=== PATIENT | male | born 1965 | race Caucasian/White ===

== ENCOUNTER 2017-05-19 17:16 | Emergency (ER) | payer SELFPAY ==
[2017-05-19 18:03] LABS: Hematocrit 43.8 % (42.0-52.0); Hemoglobin 14.7 gm/dL (13.5-18.0); Mean Cell Volume 81.3 fl (78-100); Mean Corpuscular Hemoglobin 27.3 pg (27-31); Mean Corpuscular Hgb Conc 33.6 g/dl (32-36); Mean Platelet Volume 10.5 fl (6.0-9.5); Neutrophil # 4.8 K/mm3 (1.3-6.0); Neutrophil % 66.1 % (42-75.0); Platelet Count 206 K/mm3 (150-450); Red Blood Count 5.39 M/mm3 (4.7-6.0); Red Cell Distribution Width 13.2 % (11.5-14.0); White Blood Count 7.3 K/mm3 (4.0-10.5)
--- NOTE | 2017-05-19 18:13 | ERNOTE ---
<Fernando Mayer - Last Filed: 05/19/17 18:30> Psychological HPI - Date Date of Service: 05/19/17 - General Chief Complaint: Psychiatric Problem Source: Reports: patient Exam Limitations: Reports: no limitations - Immun/Allergies/Home Medications Allergies/Adverse Reactions: Allergies naproxen Adverse Reaction (Severe, Verified 04/26/16 16:18) Difficulty breathing topiramate [From Topamax] Adverse Reaction (Severe, Verified 04/26/16 16:18) Tachycardia acetaminophen [From Tylenol] Adverse Reaction (Verified 04/26/16 16:18) d/t cirrosis Home Medications: HOME MEDICATIONS ALPRAZolam [Xanax] 1 mg PO QID #16 tablet 04/27/16 [Last Taken Unknown] Atenolol [Tenormin] 100 mg PO DAILY #30 tab 04/27/16 [Last Taken Unknown] Ibuprofen [Motrin] 800 mg PO TID PRN #60 tab 04/27/16 [Last Taken Unknown] Insulin Glargine,Hum.rec.anlog [Lantus] 30 units SC HS #1 vial 04/27/16 [Last Taken Unknown] Insulin Regular, Human [Humulin R] 10 units SC TIDWM #1 vial 04/27/16 [Last Taken Unknown] Lisinopril [Prinivil] 20 mg PO DAILY #30 tablet 04/27/16 [Last Taken Unknown] - History of Present Illness Narrative: Patient presents to the ED for feeling suicidal. He relates he is homeless and has no support and he is tired of dealing with this. He relates that [place] shoot himself [place] He states chronic low back pain without acute injury. He denies any now injury, just chronic pain. No CP or SOB. Has not tried to OD. Gets occasional abdominal cramps, non at this time. No fever. Uses amphetamines and THC. Time Seen by Provider: 05/19/17 17:40 Arrived by: Denies: police Onset/duration: Reports: gradual onset Intent: Reports: suicide Associated Symptoms: Reports: frustrated, suicidal thoughts. Denies: confused, hallucinating Prior Treament: Denies: recently seen Review of Systems - Review of Systems Constitutional: Absent: fever ENT: Present: no symptoms reported Respiratory: Absent: shortness of breath Cardiology: Absent: chest pain Gastrointestinal/Abdominal: Present: See HPI Genitourinary: Absent: dysuria Musculoskeletal: Present: back pain Neurological: Absent: weakness Psych: Present: depressed All Other Systems: All systems neg except as marked - Patient's Past Medical History Patient History - Medical: Anxiety, Arthritis, Chronic Pain, Diabetes Type 2 Insulin Dependent, Depression, GERD, Liver Disease, Osteoarthritis Patient History - Cardiac/Respiratory: Hypertension, Myocardial Infarction, Pericarditis Patient History - Cancer: No Hx of Cancer Patient History - Surgical Procedures: Cardiac stent Patient History - Other: None - Family History Father Family History - Medical: Family History - Cardiac/Respiratory: CHF Mother Family History - Medical: - Social History Living Situations: alone Abuse History: Hx of Substance Use Psych History: Hx of Anxiety, Hx of Depression, Hx of Suicide Attempt Smoking Status: Current every day smoker Have you smoked in the past 12 months: Yes Do you dip or chew tobacco: No Alcohol Use: none Drug Use: marijuana, meth, other - Immunizations Immunizations Up to Date: No Hx Pneumococcal Vaccination: No History of Influenza Vaccine: No Physical Exam - Physical Exam General Appearance: Present: alert, no apparent distress Head Exam: Present: normal inspection, no evidence of injury Eye Exam: Normal inspection: bilateral, PERRL: bilateral Ears, Nose, Throat: Present: normal ENT inspection Neck: Present: normal inspection Respiratory: Present: no respiratory distress, normal breath sounds, no accessory muscle use, lungs clear Cardiovascular/Chest: Present: regular rate, rhythm Gastrointestinal/Abdominal: Present: normal bowel sounds, nontender, soft. Absent: tenderness Back Exam: Present: other - muscular tenderness. 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 Skin Exam: Present: normal color, warm/dry ED Progress - Results and Orders Patient's Lab Results:: I have reviewed the patient's lab results. - Vital Signs Patient's Vital Signs:: I have reviewed the patient's vital signs. Vital Signs: Vital Signs 05/19/17 05/19/17 17:32 17:38 Temperature 37.1 C 37.1 C Pulse Rate 80 80 Respiratory 18 18 Rate Blood Pressure 162/99 162/99 O2 Sat by Pulse 94 94 Oximetry - Progress/Reassessment Chief Complaint: Psychiatric Problem - Transfer of Care Physician Sign Out: Fernando Mayer Receiving Physician: Yovany Mitchell Pending Results: Labs, Physician/consult arrival Departure Clinical Impression: Suicidal thoughts - Departure Disposition: Other health care facility Condition: Stable <Yovany Mitchell - Last Filed: 05/20/17 08:03> ED Progress - Results and Orders Results and Orders: Laboratory Tests 05/19/17 05/19/17 05/19/17 18:02 18:02 19:05 WBC 7.3 Hgb 14.7 Hct 43.8 Plt Count 206 Sodium 136 Potassium 3.7 Chloride 101 Carbon Dioxide 27.7 BUN 15 Creatinine 0.92 Random Glucose 465 H Calcium 8.7 Calcium Adj for Albumin 9.0 Total Bilirubin 0.4 AST 15 ALT 39 Alkaline Phosphatase 130 Total Protein 6.8 Albumin 3.2 L Lipase 128 Urine Color Yellow Urine Appearance Slightly cloudy Urine pH 6.0 Ur Specific [place] 1.010 Urine Protein Negative Urine Glucose (UA) >=1000 H Urine Ketones Negative Urine Blood 5 H Urine Nitrate Negative Urine Bilirubin Negative Urine Urobilinogen Normal Ur Leukocyte Esterase Negative Urine RBC Trace Urine WBC None seen Ur Epithelial Cells Trace Urine Bacteria None seen Urine Culture Comments No culture indicated Salicylates 3.5 Urine Opiates Screen Acetaminophen Less than 0.2 L Barbiturate Screen Ur Phencyclidine Scrn Urine Amphetamine U Benzodiazepines Scrn Urine Cocaine Screen Urine Marijuana (THC) Ethyl Alcohol Less than 3.0 05/19/17 19:05 WBC Hgb Hct Plt Count Sodium Potassium Chloride Carbon Dioxide BUN Creatinine Random Glucose Calcium Calcium Adj for Albumin Total Bilirubin AST ALT Alkaline Phosphatase Total Protein Albumin Lipase Urine Color Urine Appearance Urine pH Ur Specific [place] Urine Protein Urine Glucose (UA) Urine Ketones Urine Blood Urine Nitrate Urine Bilirubin Urine Urobilinogen Ur Leukocyte Esterase Urine RBC Urine WBC Ur Epithelial Cells Urine Bacteria Urine Culture Comments Salicylates Urine Opiates Screen Negative Acetaminophen Barbiturate Screen Negative Ur Phencyclidine Scrn Negative Urine Amphetamine Negative U Benzodiazepines Scrn Negative Urine Cocaine Screen Negative Urine Marijuana (THC) Positive H Ethyl Alcohol - Vital Signs Vital Signs: Vital Signs 05/19/17 05/19/17 17:32 17:38 Temperature 37.1 C 37.1 C Pulse Rate 80 80 Respiratory 18 18 Rate Blood Pressure 162/99 162/99 O2 Sat by Pulse 94 94 Oximetry - Progress/Reassessment Progress Note-Subjective: 05/19/17 20:[address] Mayer, spoke with the patient he is alert and oriented, somewhat flat affect. He is awaiting [facility] social sciences lecturer to assess him. 05/19/17 22:55 Crisis center in [place] believes that the behavioral health assessment done by the [facility] social sciences lecturer was not complete. We contacted the [facility] social sciences lecturer and she will come back and find other placement 05/20/17 01:39 Crisis house from [place] believes they could take him but need to wait for second approval in the morning. They would also not have transportation until morning. 05/20/17 07:37 Crisis house in [place] may accept the patient this morning.
[2017-05-19 18:16] LABS: ALT 39 U/L (19-67); AST 15 U/L (0-48); Albumin * 3.2 gm/dl (3.4-5.0); Alkaline Phosphatase * 130 U/L (50-170); BUN/Creatinine Ratio 16.3 (9.0-21.6); Bilirubin, Total 0.4 mg/dL (0.0-1.1); Blood Urea Nitrogen 15 mg/dL (6-23); Calcium * 8.7 mg/dL (7.9-10.9); Carbon Dioxide 27.7 mmol/L (24-32.6); Chloride 101 mmol/L (97-106); Glucose * 465 mg/dL (70-110); Lipase 128 U/L (73-393); Potassium 3.7 mmol/L (3.4-4.6); Salicylate 3.5 mg/dL (2.8-20.0); Sodium 136 mmol/L (132-142); Total Protein 6.8 gm/dL (6.2-8.2)
[2017-05-19 19:11] LABS: Urine Bilirubin Negative (NEGATIVE); Urine Ketone Negative (NEGATIVE); Urine Nitrite Negative (NEGATIVE); Urine Protein Negative (NEGATIVE); Urine Urobilinogen Normal (NORMAL)
[2017-05-19] MEDS ORDERED: CYCLOBENZAPRINE HCL 10 MG TABLET PO ONE (19:15)
[2017-05-19] MEDS ORDERED: CYCLOBENZAPRINE HCL 10 MG TABLET ONE (19:15)
[2017-05-19 19:22] LABS: Cocaine Ur Negative (NEGATIVE); Urine Appearance Slightly Cloudy; Urine Barbiturate Negative (NEGATIVE); Urine Benzodiazepines Negative (NEGATIVE); Urine Blood 5 /ul (NEGATIVE); Urine Color Yellow; Urine PCP Negative (NEGATIVE)
[2017-05-19 19:23] LABS: Urine Bacteria None Seen; Urine RBC TRACE /hpf (0-5); Urine WBC None Seen /hpf (0-5)
[2017-05-19 19:30] LABS: Urine Opiates Negative (NEGATIVE)
[2017-05-19 19:31] LABS: Urine THC Positive (NEGATIVE)
[2017-05-19] MEDS ORDERED: IBUPROFEN 400 MG TABLET ONE (19:51)
[2017-05-19] MEDS ORDERED: IBUPROFEN 400 MG TABLET PO ONE (19:52)
[2017-05-20] MEDS ORDERED: IBUPROFEN 400 MG TABLET PO ONE (04:26)
[2017-05-20] MEDS ORDERED: INSULIN REGULAR, HUMAN 100 UNITS/ML VIAL SC ONE (04:26)
[2017-05-20] MEDS ORDERED: IBUPROFEN 400 MG TABLET ONE (04:28)
--- NOTE | 2017-05-20 08:51 | ERNOTE ---
Psychological HPI - Date Date of Service: 05/20/17 - General Chief Complaint: Psychiatric Problem Source: Reports: patient - Immun/Allergies/Home Medications Allergies/Adverse Reactions: Allergies naproxen Adverse Reaction (Severe, Verified 04/26/16 16:18) Difficulty breathing topiramate [From Topamax] Adverse Reaction (Severe, Verified 04/26/16 16:18) Tachycardia acetaminophen [From Tylenol] Adverse Reaction (Verified 04/26/16 16:18) d/t cirrosis Home Medications: HOME MEDICATIONS ALPRAZolam [Xanax] 1 mg PO QID #16 tablet 04/27/16 [Last Taken Unknown] Atenolol [Tenormin] 100 mg PO DAILY #30 tab 04/27/16 [Last Taken Unknown] Ibuprofen [Motrin] 800 mg PO TID PRN #60 tab 04/27/16 [Last Taken Unknown] Insulin Glargine,Hum.rec.anlog [Lantus] 30 units SC HS #1 vial 04/27/16 [Last Taken Unknown] Insulin Regular, Human [Humulin R] 10 units SC TIDWM #1 vial 04/27/16 [Last Taken Unknown] Lisinopril [Prinivil] 20 mg PO DAILY #30 tablet 04/27/16 [Last Taken Unknown] - History of Present Illness Time Seen by Provider: 05/19/17 17:40 - Patient's Past Medical History Patient History - Medical: Anxiety, Arthritis, Chronic Pain, Diabetes Type 2 Insulin Dependent, Depression, GERD, Liver Disease, Osteoarthritis Patient History - Cardiac/Respiratory: Hypertension, Myocardial Infarction, Pericarditis Patient History - Cancer: No Hx of Cancer Patient History - Surgical Procedures: Cardiac stent Patient History - Other: None - Family History Father Family History - Medical: Family History - Cardiac/Respiratory: CHF Mother Family History - Medical: - Social History Living Situations: alone Abuse History: Hx of Substance Use Psych History: Hx of Anxiety, Hx of Depression, Hx of Suicide Attempt Smoking Status: Current every day smoker Have you smoked in the past 12 months: Yes Do you dip or chew tobacco: No Alcohol Use: none Drug Use: marijuana, meth, other - Immunizations Immunizations Up to Date: No Hx Pneumococcal Vaccination: No History of Influenza Vaccine: No ED Progress - Results and Orders Patient's Lab Results:: I have reviewed the patient's lab results. - Vital Signs Patient's Vital Signs:: I have reviewed the patient's vital signs. Vital Signs: Vital Signs 05/20/17 04:25 Temperature 36.0 C L Pulse Rate 68 Respiratory 18 Rate Blood Pressure 163/78 O2 Sat by Pulse 95 Oximetry - Progress/Reassessment Chief Complaint: Psychiatric Problem Progress Note-Subjective: 05/20/17 08:48 Patient was checked out to me again at am shift change May [address] Mitchell. Patient is lying in bed, alert. His only c/o at this time is of his chronic back pain. No new complaints. Sandra has seen the patient O/N and he is set to go to [place]. He is agreeable to this. Please see my prior note and Dr Mitchell's. He is medically stable for d/c and transfer. No acute life threats otherwise noted. Departure Clinical Impression: Suicidal thoughts, Non compliance w medication regimen - Departure Disposition: Other health care facility Condition: Stable
[2017-05-20 10:06] VITALS: BP 160/76
== END 2017-05-20 09:46 | disposition short-term general hospital (02) ==
LOC: ER 17:16
DX: R45.851 Suicidal ideations (principal); F17.200 Nicotine dependence, unspecified, uncomplicated
CPT/HCPCS: 36415; 80053; 80307; 81001; 83690; 85025; 96372; 99285; G0480; G0481

== ENCOUNTER 2018-02-11 17:16 | Observation (INO) ==
[2018-02-11 18:02] LABS: Hematocrit 41.6 % (42.0-52.0); Hemoglobin 13.8 gm/dL (13.5-18.0); Mean Cell Volume 79.4 fl (78-100); Mean Corpuscular Hemoglobin 26.3 pg (27-31); Mean Corpuscular Hgb Conc 33.2 g/dl (32-36); Mean Platelet Volume 9.9 fl (6.0-9.5); Neutrophil # 7.6 K/mm3 (1.3-6.0); Neutrophil % 72.3 % (42-75.0); Platelet Count 271 K/mm3 (150-450); Red Blood Count 5.24 M/mm3 (4.7-6.0); Red Cell Distribution Width 13.2 % (11.5-14.0); White Blood Count 10.5 K/mm3 (4.0-10.5)
[2018-02-11 18:15] LABS: Albumin * 2.9 gm/dl (3.4-5.0); Anion Gap 12.5 mmol/L (6.8-13.8); BUN/Creatinine Ratio 20.9 (9.0-21.6); Bilirubin, Total 0.4 mg/dL (0.0-1.1); Ca. Corrected For Albumin 9.5 mg/dL (8.4-10.2); Calcium * 8.9 mg/dL (7.9-10.9); Carbon Dioxide 26.5 mmol/L (24-32.6); Magnesium 2.1 mg/dL (1.2-2.8); Total Protein 7.4 gm/dL (6.2-8.2)
--- NOTE | 2018-02-11 19:12 | ERNOTE ---
Lower Extremity HPI - Narrative Date of Service: 02/11/18 - General Lower Extremities Pain: foot: left Time Seen by Provider: 02/11/18 17:30 Source: patient Exam Limitations: no limitations - Immun/Allergies/Home Medications Immunizations: IMMUNIZATION HX Immunizations Up to Date Yes History of Influenza Vaccine No Hx Pneumococcal Vaccination No Allergies/Adverse Reactions: Allergies Allergy/AdvReac Type Severity Reaction Status Date / Time naproxen AdvReac Severe Verified 02/11/18 17:34 topiramate [From Topamax] AdvReac Severe Verified 02/11/18 17:34 acetaminophen [From Tylenol] AdvReac Verified 02/11/18 17:34 Home Medications: HOME MEDICATIONS Atenolol [Tenormin] 100 mg PO DAILY #30 tab 04/27/16 [Last Taken Unknown] Ibuprofen [Motrin] 800 mg PO TID PRN #60 tab 04/27/16 [Last Taken Unknown] Insulin Regular, Human [Humulin R] 10 units SC TIDWM #1 vial 04/27/16 [Last Taken Unknown] Lisinopril [Prinivil] 20 mg PO DAILY #30 tablet 04/27/16 [Last Taken Unknown] Clindamycin HCl [Cleocin HCl] 300 mg PO Q6H #40 capsule 12/17/17 [Last Taken Unknown] Insulin Glargine,Hum.rec.anlog [Lantus] 30 units SC BID 12/17/17 [Last Taken Unknown] Meloxicam [Mobic] 7.5 mg PO DAILY #30 tab 12/17/17 [Last Taken Unknown] - History of Present Illness Narrative: 52-year-old male presents to the emergency room for a left foot ulcer he states he's had for a while. Patient states that when he starts to notice again he cut it off with a razor. Patient states with the last few days he has had increased redness increased pain and a lot of drainage noted from the ulcer. Patient states that he can see the bone at the bottom of his foot. 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 Date (Duration): 02/11/18 Occurred: yesterday Location of Incident: home Associated Symptoms: Reports: unable to bear weight Subsequent Symptoms: Reports: sensory loss, numbness - foot Review of Systems - Review of Systems Constitutional: Present: no symptoms reported EYE: Present: no symptoms reported ENT: Present: no symptoms reported Respiratory: Present: no symptoms reported Cardiology: Present: no symptoms reported Gastrointestinal/Abdominal: Present: no symptoms reported Genitourinary: Present: no symptoms reported Musculoskeletal: Present: See HPI, joint pain Skin: Present: See HPI, lesions, change in color Neurological: Present: no symptoms reported Endocrine: Present: no symptoms reported Hematologic/Lymphatic: Present: no symptoms reported Psych: Present: no symptoms reported All Other Systems: All systems neg except as marked - Patient's Past Medical History Patient History - Medical: Anxiety, Arthritis, Chronic Pain, Diabetes Type 2 Insulin Dependent, Depression, GERD, Liver Disease, Osteoarthritis Patient History - Cardiac/Respiratory: Hypertension, Myocardial Infarction, Pericarditis Patient History - Cancer: Lymphoma Patient History - Surgical Procedures: Cardiac stent, Other Patient History - Other: None - Family History Father Family History - Medical: Family History - Cardiac/Respiratory: CHF Mother Family History - Medical: - Social History Abuse History: Hx of Substance Use Psych History: Hx of Anxiety, Hx of Depression, Hx of Suicide Attempt Smoking Status: Current every day smoker Have you smoked in the past 12 months: Yes Alcohol Use: none Drug Use: marijuana, meth - Immunizations Immunizations Up to Date: Yes Hx Pneumococcal Vaccination: No History of Influenza Vaccine: No Physical Exam - Physical Exam Narrative: 2 cm open wound to the base of the left foot below pinkie and fourth toe. Small amount of bone exposed. Very foul smell. Wound bed and does not appear to be healing dark tissue present soft present drainage present and soft. General Appearance: Present: wd/wn, alert, no apparent distress Head Exam: Present: normal inspection, no evidence of injury Ears, Nose, Throat: Present: normal ENT inspection, normal pharynx Neck: Present: normal inspection, nontender Respiratory: Present: no respiratory distress, normal breath sounds, no accessory muscle use, lungs clear Cardiovascular/Chest: Present: regular rate, rhythm, no murmur, normal peripheral pulses Peripheral Pulses: N=norm/S=strong/W=weak/B=bound/A=absent: Dorsalis-pedis (R): Normal, Dorsalis-pedis (L): Normal Gastrointestinal/Abdominal: Present: normal bowel sounds, no organomegaly Back Exam: Present: normal inspection, no vertebral tenderness Extremity Exam: Present: other Neurological Exam: Present: alert, oriented, normal mood/affect Lymphatic Exam: Present: no adenopathy ED Progress - Results and Orders Patient's Lab Results:: I have reviewed the patient's lab results. - Vital Signs Patient's Vital Signs:: I have reviewed the patient's vital signs. Vital Signs: Vital Signs 02/11/18 17:30 Temperature 37.5 C Pulse Rate 88 Respiratory 14 Rate Blood Pressure 175/78 O2 Sat by Pulse 99 Oximetry - X-Ray X-Ray #1 X-Ray: foot Interpretation: Reviewed by me X-ray Comments: TECHNIQUE: 3 views of the left foot. COMPARISONS: 02/26/2016 Foot 3 Views LT * No definable fracture lucency or cortical discontinuity. No definite signs of periostitis. Incidental note of what appears to be an exostosis at the distal tibia, most likely an incidental osteochondroma or ossification related to prior injury. This is stable. Joint spaces are in gross normal alignment without subluxation or dislocation. Lisfranc joint grossly intact. Lateral view best demonstrates a focal plantar ulcer at the bottom of the foot centered at the level of the fourth MTP joint. Measures approximately 2 cm in length , and 6 mm in depth. There is no definite signs of radiopaque foreign body. IMPRESSION: 1. Soft tissue ulcer at the plantar aspect of the foot as above. 2. No definite signs of osteomyelitis. If there is a persistent clinical concern, consider follow- up by nonemergent MRI, without and with contrast. If MRI examination is contraindicated, consider 3 phase nuclear medicine bone scan. 3. Additional comments are as above. Electronically signed by Magdi Polanco M.D.. Magdi Polanco MD Dict: 02/11/181836 Typed: 02/11/181836/ - Progress/Reassessment Chief Complaint: Foot Injury/Pain Departure Clinical Impression: Diabetic foot ulcer Qualifiers: Diabetic foot ulcer location: midfoot Diabetes mellitus type: type 2 Laterality : left Non-pressure ulcer stage: with necrosis of muscle Qualified Code(s): E11.621 - Type 2 diabetes mellitus with foot ulcer - Departure Disposition: Still a patient Condition: Stable
[2018-02-11] MEDS ORDERED: VANCOMYCIN HCL 1 GM in DEXTROSE 5 % IN WATER 250 ML IV ONE ×2 (19:27)
[2018-02-11 19:53] LABS: Hemoglobin A1C 10.9 % (4.00-6.0)
[2018-02-11] MEDS ORDERED: HYDROmorphone HCL 1 MG/ML DISP.SYRIN IV PRN (21:26)
[2018-02-11] MEDS ORDERED: KETOROLAC TROMETHAMINE 15 MG/ML VIAL IV PRN (21:27)
--- NOTE | 2018-02-11 21:31 | HP ---
Chief Complaint - Chief Complaint Date of Service: 02/11/18 - n Time of Service: 21:31 Chief Complaint: " Pain on LT foot, chills". Source of HPI- Pt; reliable, ERP report. History of Present Illness: Mr. Ordaz is a 50 yr old WM with a PMH of: Anxiety, Arthritis, Aortic Stenosis (severe), CAD s/p CHRISTY x 3 ( 07/14), COPD, Cirrhosis of Liver, Chronic Pain (with opioid dependence), Diabetes Type 2 Insulin Dependent, Depression, Diabetic Neuropathy, Hep C, Osteoarthritis & Polysubtance abuse (beg at age 14) . He has no PCP around the community and states that even if he did, he has no means to get to the doctor's office. His friend paid cab service for him to be brought to the [facility] ER. He currently lives with his niece in a house without heat and running water, and they are about to be evicted again by the landlord. He has had no permanent dwelling for the last 2 yrs and has struggled with medication & diabetes compliance. He states that for the last 3 days, he has been unable to walk on his LT foot due to severe pain and increased swelling. He says that the pain feels like someone is 'hitting his foot with a hammer' and the wound site feels like 'it's being probed with a sharp object.' He has had this non-healing wound on the plantar of his foot for several months and has not followed up with any doctor. He was seen at [facility] ER on 10/16/17 for pain on the wound and was started on Doxycycline and referred to follow-up with [facility]. He admits he did not follow through with the visit. At the ED tonight, the wound appeared necrotic with Eschar tissue, was foul with moderate purulent drainage but no surrounding erythema. Notable abnormal labs were ESR--> 48 & CRP of 5.5. Empiric antibiotics with Vancomycin initiated at the ED. The foot X-ray did not show any definite signs of Osteomyelitis, however , this imaging has low sensitivity in early course and he will need an MRI. Podiatry will be consulted in am as he may need surgical approach due to the necrotic tissue on wound. - Patient's Past Medical History Patient History - Medical: Anxiety, Arthritis, Chronic Pain, Diabetes Type 2 Insulin Dependent, Depression, GERD, Liver Disease, Osteoarthritis Patient History - Cardiac/Respiratory: Hypertension, Myocardial Infarction, Pericarditis Patient History - Cancer: Lymphoma Patient History - Surgical Procedures: Cardiac stent, Other Patient History - Other: None - Family History Father Family History - Medical: , Depression Family History - Cardiac/Respiratory: CHF, Hypertension Mother Family History - Medical: Family History - Cardiac/Respiratory: Hypertension - Social History Living Situations: home Abuse History: Hx of Substance Use Psych History: Hx of Anxiety, Hx of Depression, Hx of Suicide Attempt Smoking Status: Current every day smoker Have you smoked in the past 12 months: Yes Do you dip or chew tobacco: No Smoking Start Date: 01/27/88 Patient requests Smoking Cessation Consult: No Initiate information on Smoking Cessation: No Alcohol Use: none Drug Use: marijuana, meth - Immunizations Immunizations Up to Date: Yes Hx Pneumococcal Vaccination: No History of Influenza Vaccine: No Review Of Systems (GEN) - Review of Systems Generalized/Overall Review: Present: Fever, Malaise. Absent: Weakness, Chills EENTM: Absent: Eye Pain, Blurred Vision, Tearing, Double Vision Respiratory: Absent: Cough, Shortness of Breath, Orthopnea Cardiac: Absent: Chest Pain, Edema, Palpitations, Syncope Abdominal: Present: Diarrhea. Absent: Nausea, Vomiting, Hematemesis, Abdominal Pain Genitourinary: Absent: Burning, Itching, Urgency, Frequency, Incontinent Musculoskeletal: Absent: Joint Pain, Back Pain, Joint Swelling Neurological: Present: Anxiety, Depressed, Emotional Problems. Absent: Headache , Numbness, Parasthesia Skin: Present: Other - Wound on RT foot.. Absent: Dryness, Lesions, Lumps, Bruising Endocrine: Present: Intolerance to Cold Misc: All systems neg except as marked Immunizations: IMMUNIZATION HX Immunizations Up to Date Yes History of Influenza Vaccine No Hx Pneumococcal Vaccination No Allergies/Adverse Reactions: Allergies Allergy/AdvReac Type Severity Reaction Status Date / Time naproxen AdvReac Severe Verified 02/11/18 17:34 topiramate [From Topamax] AdvReac Severe Verified 02/11/18 17:34 acetaminophen [From Tylenol] AdvReac Verified 02/11/18 17:34 Home Medications: HOME MEDICATIONS Atenolol [Tenormin] 100 mg PO DAILY #30 tab 04/27/16 [Last Taken Unknown] Ibuprofen [Motrin] 800 mg PO TID PRN #60 tab 04/27/16 [Last Taken Unknown] Insulin Regular, Human [Humulin R] 10 units SC TIDWM #1 vial 04/27/16 [Last Taken Unknown] Lisinopril [Prinivil] 20 mg PO DAILY #30 tablet 04/27/16 [Last Taken Unknown] Clindamycin HCl [Cleocin HCl] 300 mg PO Q6H #40 capsule 12/17/17 [Last Taken Unknown] Insulin Glargine,Hum.rec.anlog [Lantus] 30 units SC BID 12/17/17 [Last Taken Unknown] Meloxicam [Mobic] 7.5 mg PO DAILY #30 tab 12/17/17 [Last Taken Unknown] Exam - Exam Vital Signs: Vital Signs - Last Taken Temp 36.7 C 02/11/18 20:11 Pulse 79 02/11/18 20:11 Resp 18 02/11/18 20:11 BP 181/94 02/11/18 20:11 Pulse Ox 99 02/11/18 20:11 Constitutional: Present: Alert, Oriented x3, Cooperative, No distress ENT Exam: Present: normal ENT inspection, hearing grossly normal Eye Exam: bilateral eye: normal inspection, PERRL Neck: Present: non-tender, full range of motion, supple Back Exam: Present: normal inspection, no CVA tenderness Breasts: Present: Exam deferred Respiratory: Present: chest non-tender, No rales, No wheezing Cardiovascular/Chest: Present: normal peripheral pulses, regular rate, rhythm, no chest tenderness, systolic murmur Abdomen: Present: Normal bowel sounds, soft, nontender /Rectal: Present: Exam deferred Extremity: Present: normal range of motion, non-tender, normal inspection Skin Exam: Present: other - Non-healing ulcer wound on Plantar aspect of RT foot. Measures 0.5 cm deep and 3 x 2.8 cm, with eschar tissue, mild yellow drainage. Lymphatic: Present: no adenopathy Neurologic: Present: alert, oriented x 3, depressed affect Appearance: Present: appropriate appearance, appropriate insight Eye contact: Present: cooperative, good eye contact, normal speech Thoughts: Present: normal thought pattern, no apparent hallucination Diagnostic Studies: Laboratory Results WBC 10.5 K/mm3 (4.0-10.5) 02/11/18 18:01 RBC 5.24 M/mm3 (4.7-6.0) 02/11/18 18:01 Hgb 13.8 gm/dL (13.5-18.0) 02/11/18 18:01 Hct 41.6 % (42.0-52.0) L 02/11/18 18:01 MCV 79.4 fl (78-100) 02/11/18 18:01 MCH 26.3 pg (27-31) L 02/11/18 18:01 MCHC 33.2 g/dl (32-36) 02/11/18 18:01 RDW 13.2 % (11.5-14.0) 02/11/18 18:01 Plt Count 271 K/mm3 (150-450) 02/11/18 18:01 MPV 9.9 fl (6.0-9.5) H 02/11/18 18:01 Immature Gran % (Auto) 0.30 % (0.001-0.429) 02/11/18 18:01 Immature Gran # (Auto) 0.03 K/mm3 (0.000-0.0310) 02/11/18 18:01 Neutrophils % 72.3 % (42-75.0) 02/11/18 18:01 Lymphocytes % 19.5 % (20-51) L 02/11/18 18:01 Monocytes % 6.4 % (0.0-9) 02/11/18 18:01 Eosinophils % 0.9 % (0.0-3.0) 02/11/18 18:01 Basophils % 0.6 % (0.0-1.0) 02/11/18 18:01 Nucleated RBC % 0.0 k/mm3 (0-1) 02/11/18 18:01 Neutrophils # 7.6 K/mm3 (1.3-6.0) H 02/11/18 18:01 Lymphocytes # 2.05 k/mm3 (1.5-3.5) 02/11/18 18:01 Monocytes # 0.7 k/mm3 (0.0-1.0) 02/11/18 18:01 Eosinophils # 0.1 k/mm3 (0.0-0.7) 02/11/18 18:01 Absolute Basophils 0.1 k/mm3 (0.0-0.1) 02/11/18 18: ESR 48 mm/hr (0-10) H 02/11/18 18:01 Sodium 134 mmol/L (132-142) 02/11/18 18: Plasma Sodium 138 mmol/L (130-142) 02/11/18 18:01 Potassium 4.0 mmol/L (3.4-4.6) 02/11/18 18: Chloride 99 mmol/L (97-106) 02/11/18 18: Carbon Dioxide 26.5 mmol/L (24-32.6) 02/11/18 18: Anion Gap 12.5 mmol/L (6.8-13.8) 02/11/18 18: BUN 18 mg/dL (6-23) 02/11/18 18: Creatinine 0.86 mg/dL (0.4-1.4) 02/11/18 18: Est GFR (Non-Af Amer) 99 mL/min (60-130) 02/11/18 18: BUN/Creatinine Ratio 20.9 (9.0-21.6) 02/11/18 18: Random Glucose 364 mg/dL (70-110) H 02/11/18 18: Mean Blood Glucose 277 mg/dL 02/11/18 18: Hemoglobin A1c 10.9 % (4.00-6.0) H 02/11/18 18:01 Lactic Acid, Venous 0.9 mmol/L (0.4-1.9) 02/11/18 18: Calcium 8.9 mg/dL (7.9-10.9) 02/11/18 18: Calcium Adj for Albumin 9.5 mg/dL (8.4-10.2) 02/11/18 18:01 Magnesium 2.1 mg/dL (1.2-2.8) 02/11/18 18: Total Bilirubin 0.4 mg/dL (0.0-1.1) 02/11/18 18:01 AST 12 U/L (0-48) 02/11/18 18:01 ALT 27 U/L (19-67) 02/11/18 18: Alkaline Phosphatase 114 U/L (50-170) 02/11/18 18: C-Reactive Prot, Quant 5.5 mg/dL (0.0-0.9) H 02/11/18 18:01 Total Protein 7.4 gm/dL (6.2-8.2) 02/11/18 18:01 Albumin 2.9 gm/dl (3.4-5.0) L 02/11/18 18:01 Assessment/Plan - Assessment/Plan (1) Osteomyelitis of foot Assessment: Even though no sign of Osteomyelitis on the LT foot X-Ray, Its highly likely that he may have deeper infection and will need high resolution imaging to r/i OR r/o. will cover with Empiric antibiotics until blood /wound culture results, and duration of ax will be guided by the organism identified. Will consult Dr Hough in am and follow her recommendations. Will provide analgesics for pain, keep NPO incase surgery is pursued. Laboratory Tests 02/11/1818 18:01 18:01 ESR 48 H C-Reactive Prot, Quant 5.5 H Problem: Suspected Qualifiers: Laterality: left (2) Diabetic foot ulcer Assessment: Plan as above. Provide post-op shoe to ease ambulation. Problem: Acute Qualifiers: Diabetic foot ulcer location: midfoot Diabetes mellitus type: type 2 Laterality: right Non-pressure ulcer stage: with necrosis of muscle Qualified Code(s): E11.621 - Type 2 diabetes mellitus with foot ulcer; L97.413 - Non-pressure chronic ulcer of right heel and midfoot with necrosis of muscle; L97.413 - Non-pressure chronic ulcer of right heel and midfoot with necrosis of muscle; L97.413 - Non-pressure chronic ulcer of right heel and midfoot with necrosis of muscle; L97.413 - Non-pressure chronic ulcer of right heel and midfoot with necrosis of muscle (3) Poorly controlled diabetes mellitus Assessment: Has not been able to take his insulin as he ran out and has no means to get to pharmacy. Will restart his insulin. Have case mgt assist with access to insulin prior to discharge. Laboratory Tests 02/11/18 18:01 Hemoglobin A1c 10.9 H Problem: Chronic (4) HTN (hypertension) Assessment: Currently elevated but pain is likely contributing. Keep pain under control. Resume Atenolol and Lisinopril. Problem: Chronic Qualifiers: Hypertension type: essential hypertension Qualified Code(s): I10 - Essential (primary) hypertension (5) CAD (coronary artery disease) Assessment: Pt was transferred to the [facility] ON 07/14/17 for consideration of CABG and Aortic Valve repair after presenting to an outside hospital with C.P and elevated Troponin. Pt was evaluated by the Cardiothoracic surgery and PCI/TVAR was recommended rather than open AVR due to comorbid conditions and lack of social support. He underwent PCI w/CHRISTY X 3 to the proximal, mid and distal LAD on . ASA recommended for life and Plavix x 1 yr. Problem: Chronic (6) Aortic stenosis Assessment: TVAR recommended outpatient and pt has not been able to follow-up with this. Problem: Chronic (7) Mediastinal lymphadenopathy Assessment: Seen by Pulmonology at the [facility]. Lymphadenopathy and hemoptysis was felt to be most concerning for histoplasmosis vs maligancy. He had fungal work-up--> results not avail. Had bronchoscopy and the hemoptysis was thought to be secondary to bronchitis Problem: Chronic (8) Poor compliance with medication Problem: Chronic (9) Chronic pain Problem: Chronic (10) Depression Assessment: Has several life stressors and poor psychosocial status. May consider consulting psychiatry. Problem: Chronic (11) Polysubstance abuse Assessment: IV drug user for 8-10 yrs. Last used Methamphetamines 3 days ago. Problem: Chronic (12) Hepatitis C Assessment: Has been seen by Hepatoligy at [facility] and has follow-up in 6-12 months. Problem: Chronic
[2018-02-11] MEDS: INSULIN GLARGINE,HUM.REC.ANLOG 100 UNITS/ML VIAL SC SCH (22:15)
[2018-02-11] MEDS: INSULIN LISPRO 100 UNITS/ML VIAL SC SCH (22:17)
[2018-02-11] MEDS: NORMAL SALINE 1,000 ML IV PRN (22:31)
[2018-02-12] MEDS ORDERED: HYDROmorphone HCL 2 MG/ML VIAL ONE (00:40)
[2018-02-12] MEDS ORDERED: HYDROmorphone HCL 2 MG/ML VIAL IV PRN (00:43)
[2018-02-12] MEDS ORDERED: NICOTINE 21 MG PATC TD SCH ×2 (02:00→07:00)
[2018-02-12] MEDS ORDERED: LEVALBUTEROL HCL 0.63 MG/3 ML AMPUL IH SCH (04:30)
--- NOTE | 2018-02-12 05:18 | PN ---
Subjective - Date and Time Seen Date: 02/12/18 Time: :18 Subjective Narrative: Pt seen this am. States he barely slept due to pain on his LT foot. Pain meds help but not for a long time. No other acute events overnight. Objective - Vitals Vitals: Last Vital Signs Temp 37.1 C 02/12/18 00:00 Pulse 85 02/12/18 00:00 Resp 18 02/12/18 00:00 BP 164/76 02/12/18 00:00 Pulse Ox 91 02/12/18 00:00 - Exam Constitutional: Present: Alert, Oriented x3, Cooperative, No distress ENT Exam: Present: normal ENT inspection Neck: Present: non-tender, full range of motion, supple Breasts: Present: Exam deferred Respiratory: Present: No rales, No wheezing Cardiovascular/Chest: Present: normal peripheral pulses, regular rate, rhythm Abdomen: Present: Normal bowel sounds, soft, nontender /Rectal: Present: Exam deferred Extremity: Present: normal range of motion, non-tender, normal inspection Skin Exam: Present: warm/dry, other - diabetic ulcers on LT foot Lymphatic: Present: no adenopathy Neurologic: Present: no motor/sensory deficits, alert, depressed affect Appearance: Present: disheveled Eye contact: Present: cooperative, good eye contact Thoughts: Present: normal thought pattern, no apparent hallucination Assessment/Plan - Problems/Diagnosis (1) Osteomyelitis of foot Problem: Suspected Qualifiers: Laterality: left Narrative: Even though no sign of Osteomyelitis on the LT foot X-Ray, Its highly likely that he may have deeper infection and will need high resolution imaging to r/i OR r/o. will cover with Empiric antibiotics until blood /wound culture results, and duration of ax will be guided by the organism identified. Will consult Dr Hough in am and follow her recommendations. Will provide analgesics for pain, keep NPO incase surgery is pursued. Laboratory Tests 02/11/18 02/11/18 18:01 18:01 ESR 48 H C-Reactive Prot, Quant 5.5 H (2) Diabetic foot ulcer Problem: Acute Qualifiers: Diabetic foot ulcer location: midfoot Diabetes mellitus type: type 2 Laterality: right Non-pressure ulcer stage: with necrosis of muscle Qualified Code(s): E11.621 - Type 2 diabetes mellitus with foot ulcer; L97.413 - Non-pressure chronic ulcer of right heel and midfoot with necrosis of muscle; L97.413 - Non-pressure chronic ulcer of right heel and midfoot with necrosis of muscle; L97.413 - Non-pressure chronic ulcer of right heel and midfoot with necrosis of muscle; L97.413 - Non-pressure chronic ulcer of right heel and midfoot with necrosis of muscle Narrative: Plan as above. Provide post-op shoe to ease ambulation. (3) Poorly controlled diabetes mellitus Problem: Chronic Narrative: Has not been able to take his insulin as he ran out and has no means to get to pharmacy. Will restart his insulin. Have case mgt assist with access to insulin prior to discharge. Laboratory Tests 02/11/18 18:01 Hemoglobin A1c 10.9 H (4) HTN (hypertension) Problem: Chronic Qualifiers: Hypertension type: essential hypertension Qualified Code(s): I10 - Essential (primary) hypertension Narrative: Currently elevated but pain is likely contributing. Keep pain under control. Resume Atenolol and Lisinopril. (5) CAD (coronary artery disease) Problem: Chronic Narrative: Pt was transferred to the [facility] ON 07/14/17 for consideration of CABG and Aortic Valve repair after presenting to an outside hospital with C.P and elevated Troponin. Pt was evaluated by the Cardiothoracic surgery and PCI/TVAR was recommended rather than open AVR due to comorbid conditions and lack of social support. He underwent PCI w/CHRISTY X 3 to the proximal, mid and distal LAD on . ASA recommended for life and Plavix x 1 yr. (6) Aortic stenosis Problem: Chronic Narrative: TVAR recommended outpatient and pt has not been able to follow-up with this. (7) Mediastinal lymphadenopathy Problem: Chronic Narrative: Seen by Pulmonology at the [facility]. Lymphadenopathy and hemoptysis was felt to be most concerning for histoplasmosis vs maligancy. He had fungal work-up--> results not avail. Had bronchoscopy and the hemoptysis was thought to be secondary to bronchitis (8) Poor compliance with medication Problem: Chronic (9) Chronic pain Problem: Chronic (10) Depression Problem: Chronic Narrative: Has several life stressors and poor psychosocial status. May consider consulting psychiatry. (11) Polysubstance abuse Problem: Chronic Narrative: IV drug user for 8-10 yrs. Last used Methamphetamines 3 days ago. (12) Hepatitis C Problem: Chronic Narrative: Has been seen by Hepatoligy at [facility] and has follow-up in 6-12 months.
[2018-02-12 05:20] LABS: Hematocrit 38.7 % (42.0-52.0); Hemoglobin 12.8 gm/dL (13.5-18.0); Mean Cell Volume 79.6 fl (78-100); Mean Corpuscular Hemoglobin 26.3 pg (27-31); Mean Corpuscular Hgb Conc 33.1 g/dl (32-36); Mean Platelet Volume 10.2 fl (6.0-9.5); Neutrophil # 6.3 K/mm3 (1.3-6.0); Neutrophil % 64.5 % (42-75.0); Platelet Count 250 K/mm3 (150-450); Red Blood Count 4.86 M/mm3 (4.7-6.0); Red Cell Distribution Width 13.2 % (11.5-14.0); White Blood Count 9.8 K/mm3 (4.0-10.5)
[2018-02-12 05:27] LABS: Anion Gap 8.8 mmol/L (6.8-13.8); BUN/Creatinine Ratio 25.4 (9.0-21.6); Calcium * 8.5 mg/dL (7.9-10.9); Carbon Dioxide 28.6 mmol/L (24-32.6); Estimated Creat Clear 137.4; Potassium 3.4 mmol/L (3.4-4.6)
[2018-02-12] MEDS ORDERED: BUDESONIDE 0.25 MG/2 ML VIAL.NEB IH SCH (07:00)
[2018-02-12] MEDS: NORMAL SALINE 1,000 ML IV PRN (07:32)
[2018-02-12] MEDS: INSULIN LISPRO 100 UNITS/ML VIAL SC SCH (07:53)
[2018-02-12] MEDS ORDERED: ALPRAZolam 1 MG TABLET PO ONE ×2 (08:39→12:00)
[2018-02-12] MEDS: INSULIN GLARGINE,HUM.REC.ANLOG 100 UNITS/ML VIAL SC SCH (08:51)
[2018-02-12] MEDS ORDERED: ATENOLOL 100 MG TABLET PO SCH (09:00)
[2018-02-12] MEDS ORDERED: INSULIN REGULAR, HUMAN 100 UNITS/ML VIAL SC SCH (09:00)
[2018-02-12] MEDS ORDERED: LISINOPRIL 20 MG TABLET PO SCH (09:00)
[2018-02-12] MEDS ORDERED: VANCOMYCIN HCL 2 GM in DEXTROSE 5 % IN WATER 500 ML IV SCH ×2 (09:00)
[2018-02-12] MEDS: HYDROmorphone HCL 2 MG/ML VIAL IV PRN ×2 (09:05→12:57)
[2018-02-12 13:02] VITALS: BP 142/74
--- NOTE | 2018-02-12 16:22 | CONS ---
[facility] - General Date of Service: 02/12/18 Narrative: Pt evaluated at bedside resting. Presented to the ED yesterday with c/o increasing pain and foul odor to left foot ulceration. States it has been present for approximately 3 months time. He has presented to the ED in the past for care of the ulceration, however has failed to follow up as advised by ED staff. Ulceration has progressively worsened, and when he noticed an odor yesterday, he presented to the ED for care. He was admitted at that time for further treatment. I was consulted for surgical evaluation. Source: patient - History of Present Illness Allergies/Adverse Reactions: Allergies naproxen Adverse Reaction (Severe, Verified 02/11/18 17:34) Difficulty breathing topiramate [From Topamax] Adverse Reaction (Severe, Verified 02/11/18 17:34) Tachycardia acetaminophen [From Tylenol] Adverse Reaction (Verified 02/11/18 17:34) d/t cirrosis Home Medications: Home Medications Medication Instructions Recorded Last Taken Insulin Glargine,Hum.rec.anlog 30 units SC BID 12/17/17 Unknown [Lantus] - Patient's Past Medical History Patient History - Medical: Anxiety, Arthritis, Chronic Pain, Diabetes Type 2 Insulin Dependent, Depression, GERD, Liver Disease, Osteoarthritis Patient History - Cardiac/Respiratory: Hypertension, Myocardial Infarction, Pericarditis Patient History - Cancer: Lymphoma Patient History - Surgical Procedures: Cardiac stent, Other Patient History - Other: None - Family History Father Family History - Medical: , Depression Family History - Cardiac/Respiratory: CHF, Hypertension Mother Family History - Medical: Family History - Cardiac/Respiratory: Hypertension - Social History Living Situations: home Abuse History: Hx of Substance Use Psych History: Hx of Anxiety, Hx of Depression, Hx of Suicide Attempt Smoking Status: Current every day smoker Have you smoked in the past 12 months: Yes Do you dip or chew tobacco: No Smoking Start Date: 01/27/88 Patient requests Smoking Cessation Consult: No Initiate information on Smoking Cessation: No Alcohol Use: none Drug Use: marijuana, meth - Immunizations Immunizations Up to Date: Yes Hx Pneumococcal Vaccination: No History of Influenza Vaccine: No Procedures APPLICATION OF SPLINT (06/16/04) DRAINAGE OF RIGHT LOWER ARM SKIN, EXTERNAL APPROACH (01/29/16) Medications - Medications Current Medications: Current Medications Atenolol (Tenormin) 100 mg PO DAILY DAILY Stop: 03/14/18 09:01 Last Admin: 02/12/18 08:51 Dose: 100 mg Hydromorphone HCl (Dilaudid) 2 mg IV Q2H PRN PRN Reason: Pain Stop: 03/14/18 08:44 Last Admin: 02/12/18 12:57 Dose: 2 mg Sodium Chloride (Sodium Chloride 0.9%) 1,000 mls @ 125 mls/hr IV .Q8H PRN PRN Reason: HYDRATION Stop: 03/13/18 21:31 Last Infusion: 02/12/18 14:00 Dose: 125 mls/hr Vancomycin HCl 2 gm/ Dextrose/ (Water) 500 mls @ 140 mls/hr IV Q12H [facility] Stop: 03/14/18 09:01 Last Infusion: 02/12/18 14:00 Dose: 140 mls/hr Insulin Glargine (Lantus) 30 units SC BID [facility] Stop: 03/13/18 21:46 Last Admin: 02/12/18 08:51 Dose: 30 units Insulin Human Lispro (Humalog) 0 units SC ACHSINS DAILY PRN Reason: Protocol Stop: 03/13/18 21:46 Last Admin: 02/12/18 07:53 Dose: Not Given Ketorolac Tromethamine (Toradol) 15 mg IV Q6H PRN PRN Reason: Mild pain (pain scale 1-3) Stop: 02/16/18 21:28 Last Admin: 02/11/18 22:25 Dose: 15 mg Lisinopril (Zestril) 20 mg PO DAILY [facility] Stop: 03/14/18 09:01 Last Admin: 02/12/18 08:50 Dose: 20 mg Nicotine (Nicoderm) 21 mg TD Q24H [facility] Stop: 03/14/18 07:01 Last Admin: 02/12/18 07:43 Dose: 21 mg Review of Systems - Review of Systems Generalized/Overall Review: Present: Malaise, Fatigue Abdominal: Present: Nausea, Vomiting Musculoskeletal: Present: Other - Left foot pain Neurological: Present: Numbness Skin: Present: Other - Ulceration left foot Physical Examination - Exam Vital Signs: Vital Signs - Last Taken Temp 36.4 C L 02/12/18 13:01 Pulse 75 02/12/18 13:01 Resp 18 02/12/18 13:01 BP 142/74 02/12/18 13:01 Pulse Ox 99 02/12/18 13:01 O2 Oxygen Delivery Method Room Air Constitutional: Present: Alert, Oriented x3, Cooperative Cardiovascular/Chest: Present: no edema Peripheral Pulses: dorsalis-pedis (L): 2+ Extremity: Present: other - Left foot pain Skin Exam: Present: other - Ulceration to plantar left foot sub 4th metatarsal head area that measures 2.6 x 2.2 x 1.5 cm. No undermining, does tunnel to dorsal foot. Base mostly necrotic tissue. Surrounding tissue callused. Minimal sero-purulent drainage, significant malodor present. Exposed 4th metatarsal head through the ulceration. Neurologic: Present: sensory deficit Appearance: Present: disheveled Eye contact: Present: cooperative - Results and Findings: Lab/Microbiology results last 24 hrs: Abnormal/Pending Laboratory Last 24 HRS 02/12/18 02/12/18 05:05 05:05 Hgb 12.8 L Hct 38.7 L MCH 26.3 L MPV 10.2 H Neutrophils # 6.3 H Est GFR (Non-Af Amer) 132 H D BUN/Creatinine Ratio 25.4 H Random Glucose 174 H D - Assessments/Findings (1) Diabetic foot ulcer Diagnosis(s): Attempted bedside debridement of ulceration, however due to pain in this area, most necrotic tissue remains. Dressed with dry gauze, haja, and tape. Will begin daily dressing changes with Aquacel Ag, dry gauze, haja, and tape as ordered. Problem: Chronic Qualifiers: Diabetic foot ulcer location: unspecified part of foot Diabetes mellitus type: type 2 Laterality: left Non-pressure ulcer stage: with necrosis of bone Qualified Code(s): E11.621 - Type 2 diabetes mellitus with foot ulcer; L97.524 - Non-pressure chronic ulcer of other part of left foot with necrosis of bone; L97.524 - Non-pressure chronic ulcer of other part of left foot with necrosis of bone; L97.524 - Non-pressure chronic ulcer of other part of left foot with necrosis of bone; L97.524 - Non-pressure chronic ulcer of other part of left foot with necrosis of bone (2) Osteomyelitis of foot Diagnosis(s): Discussed MRI results with the patient as well as exam findings. MRI concerning for osteomyelitis of the base of the 4th toe as well as the distal 4th metatarsal. With bone exposed within the ulceration as well, this is by definition osteomyelitis. Discussed at length his treatment options, to include debridement, daily dressing changes with ferry terminal agent ABX therapy vs more aggressive surgical care to include excisional debridement of the ulceration and underlying bone with possible amputation of the 4th toe. Discussed procedure in detail, including anesthesia, and post-operative care. Advised that he will ave to adhere tightly to his post-operative instructions to help reduce further infection and possible more aggressive surgery as he does have h/ o poor adherence with medical care. Pt states understanding of this. After much discussion, pt has decided to proceed with surgical care. Will obtain consent for incision and debridement with removal of infected tissue and bone, possible amputation 4th toe all left foot. To be performed on 02/15/2018. Will be NPO after midnight prior to surgery. Problem: Suspected Qualifiers: Laterality: left (3) Non compliance w medication regimen Diagnosis(s): As previously stated, pt educated on importance of tight adherence to treatment plan. Advised that failure to adhere could result in worsening infection and possibly more aggressive surgical care. Pt states understanding of these instructions and wants to do better with his health, he just needs a little help. Problem: Acute
== END 2018-02-12 17:05 | disposition left against medical advice (07) ==
LOC: ER 17:16 → MS 19:38
PROVIDERS: ADMIT Nurse Practitioner; ATTEND Family Medicine
DX: I35.0 Nonrheumatic aortic (valve) stenosis; F19.10 Other psychoactive substance abuse, uncomplicated; K21.9 Gastro-esophageal reflux disease without esophagitis; F17.210 Nicotine dependence, cigarettes, uncomplicated; G89.29 Other chronic pain; B96.4 Proteus (mirabilis) (morganii) as the cause of diseases classified elsewhere; E11.65 Type 2 diabetes mellitus with hyperglycemia; F32.9 Major depressive disorder, single episode, unspecified; Z53.21 Procedure and treatment not carried out due to patient leaving prior to being seen by health care provider; M86.172 Other acute osteomyelitis, left ankle and foot; L97.526 Non-pressure chronic ulcer of other part of left foot with bone involvement without evidence of necrosis; R59.1 Generalized enlarged lymph nodes; B95.2 Enterococcus as the cause of diseases classified elsewhere; E11.621 Type 2 diabetes mellitus with foot ulcer; T50.906A Underdosing of unspecified drugs, medicaments and biological substances, initial encounter; Z91.120 Patient's intentional underdosing of medication regimen due to financial hardship; B18.2 Chronic viral hepatitis C; I10 Essential (primary) hypertension; I25.10 Atherosclerotic heart disease of native coronary artery without angina pectoris
CPT/HCPCS: 36415; 73630; 73720; 80048; 80053; 83036; 83605; 83735; 85025; 85652; 86140; 87040; 87070; 87077; 87081; 87186; 87389; 96361; 96365; 96366; 96372; 96375; 96376; 99284; G0378

== ENCOUNTER 2018-10-26 18:58 | Observation (INO) ==
--- NOTE | 2018-10-26 19:52 | ERNOTE ---
Date of Service: 10/26/18 Time Seen by Provider: 10/26/18 19:33 Stated Complaint: COUGHING UP BLOOD. COPD Presenting Symptoms:: cough Source: patient, RN notes reviewed, past records Exam Limitations: no limitations Immunizations: IMMUNIZATION HX Immunizations Up to Date Yes History of Influenza Vaccine Yes Hx Pneumococcal Vaccination No Allergies/Adverse Reactions: Allergies naproxen Adverse Reaction (Severe, Verified 03/09/18 20:09) Difficulty breathing topiramate [From Topamax] Adverse Reaction (Severe, Verified 03/09/18 20:09) Tachycardia acetaminophen [From Tylenol] Adverse Reaction (Verified 03/09/18 20:09) Other upset stomach, d/t cirrosis Home Medications: HOME MEDICATIONS Atorvastatin Calcium 20 mg PO DAILY@1200 #30 tablet 02/22/18 [Last Taken 03/09/18 06:30] Cholecalciferol (Vitamin D3) [Vitamin D3] 2,000 unit PO DAILY@1200 #100 02/22/18 [Last Taken 03/09/18 06:30] Amox Tr/Potassium Clavulanate [Augmentin 875-125 Tablet] 875 mg PO BID #20 tablet 02/23/18 [Last Taken 03/08/18 21:00] HYDROmorphone HCL [Dilaudid] 4 mg PO Q6H PRN 03/09/18 [Last Taken Unknown] Ibuprofen 800 mg PO TID PRN 03/09/18 [Last Taken 03/09/18 06:30] Insulin Detemir [Levemir] 30 units SC BID 03/09/18 [Last Taken 03/09/18 06:30] traMADol HCL [Ultram] 50 mg PO Q6H PRN 03/09/18 [Last Taken Unknown] - History of Present Ilness Narrative: Layla is a 53 year old male who presents to the ED for a cough and hemoptysis. He has COPD and a chronic cough, but reports it has been worsening over the past couple of days. He has had hemoptysis off and on for over a year. He feels like his lungs are "filling up again." He also reports having chest pain intermittently. He believes this is related to his breathing and not his heart. He is homeless and has been staying in an abandoned house. He was last seen here approximately 6 months ago. He was transferred and hospitalized for over a month in [place] or [place] where he was treated for gangrene in his left lower leg/foot until he finally underwent a BKA. He reports that he is now starting to develop "sores" on his good leg as well. He admits to using meth and marijuana. He reports that he is still taking some of his prescription medications but he is not sure what. He reports being told that he has enlarged lymph nodes in his chest that are cancerous when he was hospitalized last summer, as well as being told he needs a valve replacement. Timing: getting worse Severity: severe Frequency/Possible Cause: Reports: other - cold weather Associated Symptoms: Reports: chest pain/soreness, cough, shortness of breath. Denies: wheezing, earache, headache, sore throat Prior Treatment: Denies: recently seen Review of Systems - Review of Systems Constitutional: Present: fatigue, malaise EYE: Present: no symptoms reported ENT: Absent: nose congestion, sore throat Respiratory: Absent: shortness of breath, cough Cardiology: Present: chest pain, edema. Absent: palpitations, syncope Gastrointestinal/Abdominal: Absent: vomiting, diarrhea Genitourinary: Absent: dysuria, decreased urinary output Musculoskeletal: Present: muscle pain Skin: Present: lesions. Absent: rash Neurological: Present: numbness. Absent: headache, dizziness/light-headedness, weakness Endocrine: Present: no symptoms reported Hematologic/Lymphatic: Absent: easy bruising, easy bleeding Psych: Present: emotional problems Medical History (Last Updated 10/26/18 @ 21:58 by Chrissie Jolly NP) Anxiety Aortic stenosis Arthritis Surgical History: Surgical History (Last Updated 10/26/18 @ 19:21 by Pilar Johnston) Amputated below knee H/O heart artery stent Social History: Preferred Language Yemeni Smoking Status Current every day smoker Abuse History Hx of Substance Use Psych History Hx of Anxiety,Hx of Depression,Hx of Suicide Attempt Alcohol Use none Drug Use marijuana,meth No Social History Section defined Physical Exam - Physical Exam General Appearance: Present: wd/wn, alert, mild distress Head Exam: Present: normal inspection Eye Exam: Normal inspection: bilateral Respiratory: Present: no respiratory distress, accessory muscle use - with minimal exertion, expiration (prolonged), crackles - bilat. lower lungs, rhonchi - scattered bilat Cardiovascular/Chest: Present: regular rate, rhythm, systolic murmur. Absent: normal peripheral pulses Peripheral Pulses: N=norm/S=strong/W=weak/B=bound/A=absent: Dorsalis-pedis (R): Absent Gastrointestinal/Abdominal: Present: nontender, nondistended, soft Extremity Exam: Present: normal range of motion, pedal edema - Mild, right lower leg and ankle, other - Left BKA stump appears well healed Neurological Exam: Present: alert, oriented, normal mood/affect, other - sensory defecit, right foot. Absent: no motor/sensory deficits Skin Exam: Present: normal color, warm/dry, other - small necrotic area to right dorsal 2nd toe Progress - Results and Orders Patient's Lab Results:: I have reviewed the patient's lab results. - Vital Signs Patient's Vital Signs:: I have reviewed the patient's vital signs. Vital Signs: Vital Signs 10/26/18 19:07 Temperature 36.6 C Pulse Rate 91 Respiratory Rate 20 Blood Pressure 138/95 H O2 Sat by Pulse Oximetry 99 - EKG EKG #1 EKG: NSR, RBBB, nonspecific ST T wave changes EKG read: Reviewed by me - X-Ray X-Ray #1 X-Ray: chest Interpretation: Interp. by me X-ray Comments: No acute cardiopulmonary process noted - Progress/Reassessment Chief Complaint: Cough Progress:: Improved Plan - Plan Plan: Troponin is slightly elevated 0.078 and BNP is also up at 2736 (was 1819 when last checked in 03/15). Blood glucose is elevated at 409, urine is negative for ketones. He was given oxycodone 10 mg po for pain - he reports being on this regularly and according to his [employer] he is still being prescribed this. Dr. Rm was contacted and the patient will be admitted to observation for treatment of his CHF and serial troponins. He was given Lasix 40 mg IVP and 9 units of regular insulin IVP in the ED. The patient agrees with the plan and is pleasant and cooperative. Departure Clinical Impression: Uncontrolled diabetes mellitus Qualifiers: Diabetes mellitus type: type 2 Glycemic state: with hyperglycemia Qualified Code(s): E11.65 - Type 2 diabetes mellitus with hyperglycemia Chest pain Qualifiers: Chest pain type: unspecified Qualified Code(s): R07.9 - Chest pain, unspecified CHF (congestive heart failure) Qualifiers: Heart failure type: unspecified Heart failure chronicity: acute on chronic Qualified Code(s): I50.9 - Heart failure, unspecified - Departure Disposition: Still a patient Condition: Stable Referrals: Tyrone Mata DO [Primary Care Provider] -
[2018-10-26 20:21] LABS: Hematocrit 41.7 % (42.0-52.0); Hemoglobin 13.3 gm/dL (13.5-18.0); Mean Cell Volume 75.1 fl (78-100); Mean Corpuscular Hgb Conc 31.9 g/dl (32-36); Mean Platelet Volume 11.2 fl (8-11.3); Neutrophil # 5.9 K/mm3 (1.3-6.0); Platelet Count 276 K/mm3 (150-450); Red Blood Count 5.55 M/mm3 (4.7-6.0); Red Cell Distribution Width 16.9 % (11.5-14.0)
[2018-10-26] MEDS ORDERED: oxyCODONE HCL 5 MG TABLET PO ONE (20:42)
[2018-10-26 20:55] LABS: Urine Bilirubin Negative (NEGATIVE); Urine Blood 50 /ul (NEGATIVE); Urine Ketone Negative (NEGATIVE); Urine Nitrite Negative (NEGATIVE); Urine Protein 100 mg/dL (NEGATIVE); Urine Urobilinogen Normal (NORMAL)
[2018-10-26 21:03] LABS: Urine Appearance Clear (CLEAR); Urine Bacteria None Seen; Urine Color Yellow; Urine RBC 0-5 /hpf (0-5); Urine WBC None Seen /hpf (0-5)
[2018-10-26 21:04] LABS: Troponin I 0.078 ng/mL (0.00-0.10)
[2018-10-26 21:09] LABS: Albumin * 2.8 gm/dl (3.4-5.0); Anion Gap 16.5 mmol/L (6.8-13.8); BUN/Creatinine Ratio 24.2 (9.0-21.6); Bilirubin, Total 0.3 mg/dL (0.0-1.1); Ca. Corrected For Albumin 8.8 mg/dL (8.4-10.2); Calcium * 8.2 mg/dL (7.9-10.9); Carbon Dioxide 23.6 mmol/L (24-32.6); Potassium 5.1 mmol/L (3.4-4.6); Total Protein 6.4 gm/dL (6.2-8.2)
[2018-10-26 21:19] LABS: Cocaine Ur Negative (NEGATIVE); Urine Barbiturate Negative (NEGATIVE); Urine Benzodiazepines Negative (NEGATIVE); Urine Opiates Negative (NEGATIVE); Urine PCP Negative (NEGATIVE)
[2018-10-26] MEDS ORDERED: INSULIN REGULAR, HUMAN 100 UNITS/ML VIAL IV ONE (21:19)
[2018-10-26] MEDS ORDERED: FUROSEMIDE 10 MG/ML VIAL IV ONE (21:19)
[2018-10-26] MEDS ORDERED: NORMAL SALINE 1,000 ML IV ONE (21:19)
[2018-10-26 21:22] LABS: Urine THC Positive (NEGATIVE)
[2018-10-27] MEDS ORDERED: IBUPROFEN 800 MG TABLET ONE (01:23)
[2018-10-27] MEDS ORDERED: IBUPROFEN 800 MG TABLET PO ONE (01:30)
[2018-10-27] MEDS ORDERED: ALBUTEROL SULFATE 2.5 MG/0.5 ML VIAL.NEB IH PRN (03:53)
[2018-10-27] MEDS: INSULIN LISPRO 100 UNITS/ML VIAL SC SCH ×2 (07:11→11:31)
[2018-10-27] MEDS ORDERED: INSULIN DETEMIR 100 UNITS/ML VIAL SC SCH (09:30)
[2018-10-27] MEDS ORDERED: IBUPROFEN 400 MG TABLET PO PRN (10:20)
[2018-10-27] MEDS ORDERED: oxyCODONE HCL 5 MG TABLET PO SCH (10:30)
[2018-10-27] MEDS: ALBUTEROL SULFATE/IPRATROPIUM 3 ML NEBU IH SCH ×2 (11:29→12:10)
[2018-10-27] MEDS ORDERED: ATENOLOL 100 MG TABLET PO SCH (11:30)
[2018-10-27] MEDS ORDERED: LISINOPRIL 20 MG TABLET PO SCH (11:30)
--- NOTE | 2018-10-27 11:43 | DS ---
(1) Diabetes mellitus type 2 with complications, uncontrolled Diagnosis(s): Random blood sugar was in the 400s on admission. He is noncompliant with his medication regimen. We will restart him on insulin on discharge Problem: Chronic (2) Hypertension Diagnosis(s): He is also been noncompliant with his hypertension medication. I will send him out with a new prescription for his blood pressure medications. Problem: Chronic Qualifiers: Hypertension type: essential hypertension Qualified Code(s): I10 - Essential (primary) hypertension (3) COPD (chronic obstructive pulmonary disease) Diagnosis(s): Poorly controlled, he does not take any medications for COPD. I will start him on maintenance medications with Symbicort and Ventolin. Problem: Chronic Qualifiers: COPD type: chronic bronchitis Chronic bronchitis type: unspecified Qualified Code(s): J42 - Unspecified chronic bronchitis (4) Chronic pain with drug dependence Diagnosis(s): He had been receiving a prescription for oxycodone from another provider for his chronic back pain. Continue with pain management per that provider. Problem: Chronic Description of Stay: This is a 53-year-old male with a past medical history of hypertension, diabetes, chronic back pain, COPD, hyperlipidemia who presents to the emergency department with complaints of cough and hemoptysis. He states he is homeless and is living in an abandoned house. He does not have heat or running water and has been surviving in the cold with multiple blankets and flannel pants. About 6 months ago he was treated in [place] for a left BKA. He does admit to using meth and marijuana. Denies any other drug use. Chest x-ray was negative for any acute cardiopulmonary abnormalities. He was admitted for observation. His blood pressure was elevated and he was restarted on his atenolol and lisinopril with good results. Procedures Performed: none Results and Findings: Lab Pending Results 10/26/18 20:10: WBC 8.0, RBC 5.55, Hgb 13.3 L, Hct 41.7 L, MCV 75.1 L, MCH 24.0 L, MCHC 31.9 L, RDW 16.9 H, Plt Count 276, MPV 11.2, Immature Gran % (Auto) 0.40, Immature Gran # (Auto) 0.03, Neutrophils % 74.0, Lymphocytes % 16.4 L, Monocytes % 6.6, Eosinophils % 1.7, Basophils % 0.9, Nucleated RBC % 0.0, Neutrophils # 5.9, Lymphocytes # 1.32 L, Monocytes # 0.5, Eosinophils # 0.1, Absolute Basophils 0.1 10/26/18 20:10: Sodium 138, Plasma Sodium 143 H, Potassium 5.1 H D, Chloride 103, Carbon Dioxide 23.6 L, Anion Gap 16.5 H, BUN 23, Creatinine 0.95, Est GFR (Non-Af Amer) 88 D, BUN/Creatinine Ratio 24.2 H, Random Glucose 409 H, Calcium 8.2, Calcium Adj for Albumin 8.8, Total Bilirubin 0.3, AST 40, ALT 25, Alkaline Phosphatase 133, Troponin I 0.078, B-Natriuretic Peptide 2736 H, Total Protein 6.4, Albumin 2.8 L 10/26/18 20:10: Lactic Acid, Venous 1.5 10/26/18 20:47: Urine Color Yellow, Urine Appearance Clear, Urine pH 6.0, Ur Specific [place] 1.020, Urine Protein 100 H, Urine Glucose (UA) >=1000 H, Urine Ketones Negative, Urine Blood 50 H, Urine Nitrate Negative, Urine Bilirubin Negative, Prot Sulfosalicylic Acd 2+ H, Urine Urobilinogen Normal, Ur Leukocyte Esterase Negative, Urine RBC 0-5, Urine WBC None seen, Ur Epithelial Cells None seen, Urine Bacteria None seen, Urine Culture Comments No culture indicated 10/26/18 20:47: Urine Opiates Screen Negative, Barbiturate Screen Negative, Ur Phencyclidine Scrn Negative, Urine Amphetamine Negative, U Benzodiazepines Scrn Negative, Urine Cocaine Screen Negative, Urine Marijuana (THC) Positive H 10/27/18 02:05: Troponin I 0.094 Discharge Location: Home Disposition: Home self-care Condition: Stable Discharge Activity: Activity as tolerated Discharge Diet: Consistent carbs, Low salt Referrals: Tyrone Mata DO [Staff Physician] - Problem Oriented Discharge Instructions to Patient/Family: Chronic Obstructive Pulmonary Disease, [id number], Heart Failure, [id number] Additional Patient Instructions (free text): Please f/u with Dr. Rm on 11-03-18 at 3:30pm. Prescriptions (Any new or edited meds): Albuterol Sulfate [Ventolin HFA] 1 puff INHALATION Q6H PRN #1 inhaler PRN Reason: Shortness Of Breath/Wheezing Atenolol [Tenormin] 100 mg PO DAILY #30 tab Budesonide/Formoterol Fumarate [Symbicort 160-4.5 Mcg Inhaler] 2 puff INHALATION BID #1 inhaler Insulin Detemir [Levemir] 15 units SC BID #1 vial Lisinopril [Zestril] 20 mg PO DAILY #30 tab Complete Home Medications List: Complete Home Medication List: Albuterol Sulfate [Ventolin HFA] 1 puff INHALATION Q6H PRN #1 inhaler 10/27/18 Atenolol [Tenormin] 100 mg PO DAILY #30 tab 10/27/18 Budesonide/Formoterol Fumarate [Symbicort 160-4.5 Mcg Inhaler] 2 puff INHALATION BID #1 inhaler 10/27/18 Insulin Detemir [Levemir] 15 units SC BID #1 vial 10/27/18 Lisinopril [Zestril] 20 mg PO DAILY #30 tab 10/27/18 oxyCODONE HCL [Oxycodone] 10 mg PO Q6H #0 tab 10/27/18
--- NOTE | 2018-10-27 11:47 | HP ---
Chief Complaint - Chief Complaint Date of Service: 10/27/18 Time of Service: 11:44 Chief Complaint: Shortness of breath and hemoptysis History of Present Illness: 53-year-old male with a past medical history of COPD, hypertension, diabetes who presents the emergency department with complaints of hemoptysis. He is homeless and states he lives in an abandoned house but has no heat to water or electricity. He had recently been seen about 6 months ago in [place] where he had a left BKA. He does admit to using marijuana and meth. He states he has been told in the past that he has enlarged lymph nodes in his chest and needed he may have cancer. He is admitted for observation. Chest x-ray showed no cardiopulmonary abnormalities. Medical History (Last Reviewed 10/26/18 @ 23:15 by Layla Belcher RN) Diabetes mellitus type 2 with complications, uncontrolled (Chronic) COPD (chronic obstructive pulmonary disease) (Chronic) Anxiety and depression (Chronic) Polysubstance abuse (Chronic) Chronic pain with drug dependence (Chronic) Osteomyelitis of foot (Acute) Poorly controlled diabetes mellitus (Chronic) Aortic stenosis (Chronic) Hepatitis C (Chronic) CAD (coronary artery disease) (Chronic) Acute [place] (Acute) Anxiety Aortic stenosis Arthritis Surgical History: Surgical History (Last Reviewed 10/26/18 @ 23:15 by Layla Belcher RN) Amputated below knee H/O heart artery stent Social History: Patient Lives/Resources homeless Utilized Occupation unemployed Preferred Language Malay Do you have any spiritism or No cultural preference? Smoking Status Current every day smoker Have you smoked in the past 12 Yes months Do you dip or chew tobacco No Abuse History Hx of Substance Use Psych History Hx of Anxiety,Hx of Depression,Hx of Suicide Attempt Alcohol Use none Drug Use marijuana,meth No Social History Section defined Review Of Systems (GEN) - Review of Systems Respiratory: Present: Cough, Shortness of Breath Abdominal: Absent: Nausea, Vomiting Musculoskeletal: Present: Back Pain, Other - Pain in his right foot Misc: All systems neg except as marked Immunizations: IMMUNIZATION HX Immunizations Up to Date Yes History of Influenza Vaccine Yes Hx Pneumococcal Vaccination No Allergies/Adverse Reactions: Allergies Allergy/AdvReac Type Severity Reaction Status Date / Time naproxen AdvReac Severe Verified 03/09/18 20:09 topiramate [From Topamax] AdvReac Severe Verified 03/09/18 20:09 acetaminophen [From Tylenol] AdvReac Other Verified 03/09/18 20:09 Home Medications: HOME MEDICATIONS Albuterol Sulfate [Ventolin HFA] 1 puff IH Q6H PRN #1 inhaler 10/27/18 [Last Taken Unknown] Atenolol [Tenormin] 100 mg PO DAILY #30 tablet 10/27/18 [Last Taken Unknown] Budesonide/Formoterol Fumarate [Symbicort 160-4.5 Mcg Inhaler] 2 puff IH BID #1 inhaler 10/27/18 [Last Taken Unknown] Insulin Detemir [Levemir] 15 units SC BID #1 vial 10/27/18 [Last Taken Unknown] Lisinopril [Zestril] 20 mg PO DAILY #30 tablet 10/27/18 [Last Taken Unknown] oxyCODONE HCL [Oxycodone] 10 mg PO Q6H #0 tablet 10/27/18 [Last Taken Unknown] Exam - Exam Vital Signs: Vital Signs - Last Taken Temp 36.8 C 10/27/18 11:00 Pulse 93 10/27/18 11:00 Resp 20 10/27/18 11:29 BP 182/80 H 10/27/18 11:00 Pulse Ox 98 10/27/18 11:00 Constitutional: Present: Alert, Cooperative ENT Exam: Present: hearing grossly normal Neck: Present: supple. Absent: lymphadenopathy (R), lymphadenopathy (L) Back Exam: Present: normal inspection, vertebral tenderness - In the lumbar spine Respiratory: Present: no accessory muscle use, decreased breath sounds, rhonchi - Bilateral lungs throughout all lung martínez, No wheezing. Absent: crackles Cardiovascular/Chest: Present: no edema Peripheral Pulses: dorsalis-pedis (R): 1+ Abdomen: Present: Normal bowel sounds, soft, nontender Extremity: Present: no pedal edema, other - Left BKA Skin Exam: Present: other - Black small circular lesion noted on the top of the second toe of the right foot Appearance: Present: disheveled Eye contact: Present: cooperative Diagnostic Studies: Abnormal Lab Results 10/26/18 10/26/18 10/26/18 Range/Units 20:10 20:10 20:47 Hgb 13.3 L (13.5-18.0) gm/dL Hct 41.7 L (42.0-52.0) % MCV 75.1 L (78-100) fl MCH 24.0 L (27-31) pg MCHC 31.9 L (32-36) g/dl RDW 16.9 H (11.5-14.0) % Lymphocytes % 16.4 L (20-51) % Lymphocytes # 1.32 L (1.5-3.5) k/mm3 Plasma Sodium 143 H (130-142) mmol/L Potassium 5.1 H D (3.4-4.6) mmol/L Carbon Dioxide 23.6 L (24-32.6) mmol/L Anion Gap 16.5 H (6.8-13.8) mmol/L BUN/Creatinine Ratio 24.2 H (9.0-21.6) Random Glucose 409 H (70-110) mg/dL B-Natriuretic Peptide 2736 H (5-140) pg/mL Albumin 2.8 L (3.4-5.0) gm/dl Urine Protein 100 H (NEGATIVE) mg/dL Urine Glucose (UA) >=1000 H (NEGATIVE) mg/dL Urine Blood 50 H (NEGATIVE) /ul Prot Sulfosalicylic Acd 2+ H (0) mg/dL Urine Marijuana (THC) (NEGATIVE) 10/26/18 Range/Units 20:47 Hgb (13.5-18.0) gm/dL Hct (42.0-52.0) % MCV (78-100) fl MCH (27-31) pg MCHC (32-36) g/dl RDW (11.5-14.0) % Lymphocytes % (20-51) % Lymphocytes # (1.5-3.5) k/mm3 Plasma Sodium (130-142) mmol/L Potassium (3.4-4.6) mmol/L Carbon Dioxide (24-32.6) mmol/L Anion Gap (6.8-13.8) mmol/L BUN/Creatinine Ratio (9.0-21.6) Random Glucose (70-110) mg/dL B-Natriuretic Peptide (5-140) pg/mL Albumin (3.4-5.0) gm/dl Urine Protein (NEGATIVE) mg/dL Urine Glucose (UA) (NEGATIVE) mg/dL Urine Blood (NEGATIVE) /ul Prot Sulfosalicylic Acd (0) mg/dL Urine Marijuana (THC) Positive H (NEGATIVE) Laboratory Results WBC 8.0 K/mm3 (4.0-10.5) 10/26/18 20:10 RBC 5.55 M/mm3 (4.7-6.0) 10/26/18 20:10 Hgb 13.3 gm/dL (13.5-18.0) L 10/26/18 20:10 Hct 41.7 % (42.0-52.0) L 10/26/18 20:10 MCV 75.1 fl (78-100) L 10/26/18 20:10 MCH 24.0 pg (27-31) L 10/26/18 20:10 MCHC 31.9 g/dl (32-36) L 10/26/18 20:10 RDW 16.9 % (11.5-14.0) H 10/26/18 20:10 Plt Count 276 K/mm3 (150-450) 10/26/18 20:10 MPV 11.2 fl (8-11.3) 10/26/18 20:10 Immature Gran % (Auto) 0.40 % (0.001-0.429) 10/26/18 20:10 Immature Gran # (Auto) 0.03 K/mm3 (0.000-0.0310) 10/26/18 20:10 Neutrophils % 74.0 % (42-75.0) 10/26/18 20:10 Lymphocytes % 16.4 % (20-51) L 10/26/18 20:10 Monocytes % 6.6 % (0.0-9) 10/26/18 20:10 Eosinophils % 1.7 % (0.0-3.0) 10/26/18 20:10 Basophils % 0.9 % (0.0-1.0) 10/26/18 20:10 Nucleated RBC % 0.0 k/mm3 (0-1) 10/26/18 20:10 Neutrophils # 5.9 K/mm3 (1.3-6.0) 10/26/18 20:10 Lymphocytes # 1.32 k/mm3 (1.5-3.5) L 10/26/18 20:10 Monocytes # 0.5 k/mm3 (0.0-1.0) 10/26/18 20:10 Eosinophils # 0.1 k/mm3 (0.0-0.7) 10/26/18 20:10 Absolute Basophils 0.1 k/mm3 (0.0-0.1) 10/26/18 20:10 Sodium 138 mmol/L (132-142) 10/26/18 20:10 Plasma Sodium 143 mmol/L (130-142) H 10/26/18 20:10 Potassium 5.1 mmol/L (3.4-4.6) H D 10/26/18 20:10 Chloride 103 mmol/L (97-106) 10/26/18 20:10 Carbon Dioxide 23.6 mmol/L (24-32.6) L 10/26/18 20:10 Anion Gap 16.5 mmol/L (6.8-13.8) H 10/26/18 20:10 BUN 23 mg/dL (6-23) 10/26/18 20:10 Creatinine 0.95 mg/dL (0.4-1.4) 10/26/18 20:10 Est GFR (Non-Af Amer) 88 mL/min (60-130) D 10/26/18 20:10 BUN/Creatinine Ratio 24.2 (9.0-21.6) H 10/26/18 20:10 Random Glucose 409 mg/dL (70-110) H 10/26/18 20:10 Lactic Acid, Venous 1.5 mmol/L (0.4-2.0) 10/26/18 20:10 Calcium 8.2 mg/dL (7.9-10.9) 10/26/18 20:10 Calcium Adj for Albumin 8.8 mg/dL (8.4-10.2) 10/26/18 20:10 Total Bilirubin 0.3 mg/dL (0.0-1.1) 10/26/18 20:10 AST 40 U/L (0-48) 10/26/18 20:10 ALT 25 U/L (19-67) 10/26/18 20:10 Alkaline Phosphatase 133 U/L (50-170) 10/26/18 20:10 Troponin I 0.094 ng/mL (0.00-0.10) 10/27/18 02:05 B-Natriuretic Peptide 2736 pg/mL (5-140) H 10/26/18 20:10 Total Protein 6.4 gm/dL (6.2-8.2) 10/26/18 20:10 Albumin 2.8 gm/dl (3.4-5.0) L 10/26/18 20:10 Urine Color Yellow 10/26/18 20:47 Urine Appearance Clear (CLEAR) 10/26/18 20:47 Urine pH 6.0 pH (5.0-7.0) 10/26/18 20:47 Ur Specific [place] 1.020 SP.GR. (1.005-1.030) 10/26/18 20:47 Urine Protein 100 mg/dL (NEGATIVE) H 10/26/18 20:47 Urine Glucose (UA) >=1000 mg/dL (NEGATIVE) H 10/26/18 20:47 Urine Ketones Negative mg/dL (NEGATIVE) 10/26/18 20:47 Urine Blood 50 /ul (NEGATIVE) H 10/26/18 20:47 Urine Nitrate Negative (NEGATIVE) 10/26/18 20:47 Urine Bilirubin Negative mg/dl (NEGATIVE) 10/26/18 20:47 Prot Sulfosalicylic Acd 2+ mg/dL (0) H 10/26/18 20:47 Urine Urobilinogen Normal EU/dl (NORMAL) 10/26/18 20:47 Ur Leukocyte Esterase Negative /ul (NEGATIVE) 10/26/18 20:47 Urine RBC 0-5 /hpf (0-5) 10/26/18 20:47 Urine WBC None seen /hpf (0-5) 10/26/18 20:47 Ur Epithelial Cells None seen /hpf (0-5) 10/26/18 20:47 Urine Bacteria None seen (NONE) 10/26/18 20:47 Urine Culture Comments No culture indicated 10/26/18 20:47 Urine Opiates Screen Negative (NEGATIVE) 10/26/18 20:47 Barbiturate Screen Negative (NEGATIVE) 10/26/18 20:47 Ur Phencyclidine Scrn Negative (NEGATIVE) 10/26/18 20:47 Urine Amphetamine Negative (NEGATIVE) 10/26/18 20:47 U Benzodiazepines Scrn Negative (NEGATIVE) 10/26/18 20:47 Urine Cocaine Screen Negative (NEGATIVE) 10/26/18 20:47 Urine Marijuana (THC) Positive (NEGATIVE) H 10/26/18 20:47 Assessment/Plan - Narrative Narrative: 53-year-old male with complaints of hemoptysis admitted for observation. He is homeless. Chest x-ray shows no acute cardio pulmonary abnormalities. He was found to be hypertensive and his home medication of atenolol and lisinopril were restarted. Shortness of breath was treated with albuterol. - Assessment/Plan (1) Diabetes mellitus type 2 with complications, uncontrolled Assessment: Random glucose on admission was 400.He has been noncompliant with his insulin therapy, I will send a prescription for Levemir. Problem: Chronic (2) Hypertension Assessment: He has been noncompliant with his blood pressure medications. I will restart his lisinopril and atenolol and send him with a prescription. Problem: Chronic Qualifiers: Hypertension type: essential hypertension Qualified Code(s): I10 - Essential (primary) hypertension (3) COPD (chronic obstructive pulmonary disease) Assessment: He states his breathing has improved with an albuterol treatment. I will discharge him with a prescription for Ventolin and Symbicort in order to help manage his COPD. Problem: Chronic Qualifiers: COPD type: chronic bronchitis Chronic bronchitis type: unspecified Qualified Code(s): J42 - Unspecified chronic bronchitis (4) Homeless single person Assessment: He states he has been homeless for 2 years, social work has been working with him in previous admissions but he is noncompliant. Problem: Acute (5) Non compliance w medication regimen Assessment: He has a history of only taking prescription medications if it is a narcotic. I will send in his blood pressure and blood sugar medications as well as inhalers for his COPD. Unsure if he will actually take the medications. Problem: Chronic
[2018-10-27 15:07] VITALS: BP 149/81
== END 2018-10-27 14:35 | disposition home or self-care (01) ==
LOC: ER 18:58 → MS 18:58
PROVIDERS: ADMIT Internal Medicine; ATTEND Internal Medicine
CPT/HCPCS: 36415; 71020; 71046; 80053; 80307; 81001; 83519; 83605; 83880; 84484; 85025; 87040; 87077; 87081; 87186; 93005; 94640; 94664; 96365; 96366; 96372; 96375; 99285; G0378

== ENCOUNTER 2019-07-27 15:46 | Observation (INO) ==
--- NOTE | 2019-07-27 16:21 | ERNOTE ---
Psychological HPI - General Chief Complaint: Psychiatric Problem Source: Reports: patient Exam Limitations: Reports: no limitations - Immun/Allergies/Home Medications Allergies/Adverse Reactions: Allergies naproxen Adverse Reaction (Severe, Verified 07/27/19 16:05) Difficulty breathing topiramate [From Topamax] Adverse Reaction (Severe, Verified 07/27/19 16:05) Tachycardia acetaminophen [From Tylenol] Adverse Reaction (Verified 07/27/19 16:05) Other upset stomach, d/t cirrosis Home Medications: HOME MEDICATIONS NK 12/30/18 [Last Taken Unknown] - History of Present Illness Narrative: Patient comes in because he is frustrated and does not know what to do or where to go. He is actually not suicidal as was originally reported. He states he is living in a garage and has no garage door and was brought in by his son and his son's girlfriend. Patient states that he has not been taking any of his medications for weeks now because he has been living basically on [address] and has no place to keep this medication. Time Seen by Provider: 07/27/19 16:20 Arrived by: Reports: private car Onset/duration: Reports: gradual onset, other - Not suicidal but very frustrated Situational Problems: Reports: other - Generalized life condition Associated Symptoms: Reports: frustrated Review of Systems - Review of Systems Constitutional: Present: See HPI EYE: Present: no symptoms reported ENT: Present: no symptoms reported Respiratory: Present: no symptoms reported Cardiology: Present: palpitations Gastrointestinal/Abdominal: Present: no symptoms reported Genitourinary: Present: no symptoms reported Musculoskeletal: Present: no symptoms reported Skin: Present: no symptoms reported Neurological: Present: no symptoms reported Endocrine: Present: no symptoms reported Hematologic/Lymphatic: Present: no symptoms reported Psych: Present: no symptoms reported Medical History (Last Reviewed 07/27/19 @ 16:05 by Janie Galvez RN) Diabetes mellitus type 2 with complications, uncontrolled (Chronic) COPD (chronic obstructive pulmonary disease) (Chronic) Anxiety and depression (Chronic) Polysubstance abuse (Chronic) Chronic pain with drug dependence (Chronic) Osteomyelitis of foot (Acute) Poorly controlled diabetes mellitus (Chronic) Aortic stenosis (Chronic) Hepatitis C (Chronic) CAD (coronary artery disease) (Chronic) Acute [place] (Acute) Anxiety Aortic stenosis Arthritis Lymphoma Surgical History: Surgical History (Last Reviewed 07/27/19 @ 16:05 by Janie Galvez RN) Amputated below knee H/O heart artery stent Pacemaker S/P TAVR (transcatheter aortic valve replacement) Family History: Family History (Last Reviewed 07/27/19 @ 16:05 by Janie Galvez RN) Other No pertinent family history Social History: (Last Reviewed 07/27/19 @ 16:05 by Janie Galvez RN) Tobacco: Smoking Status: Current every day smoker Smoking cigarettes per day: 10 Alcohol: alcohol intake: never Substance Use: substance use type: marijuana, methamphetamine Psychological Exam - Exam General Appearance: Present: wd/wn, alert, mild distress Head Exam: Present: normal inspection, no evidence of injury Neurological: Present: alert, normal mood/affect, calm, 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 Thoughts/Hallucinations: Present: normal thought pattern Behavior/Eye Contact/Speech: Present: good eye contact, other Ears, Nose, Throat: Present: dry mucous membranes Neck: Present: normal inspection, nontender Respiratory: Present: no respiratory distress, normal breath sounds, no accessory muscle use Cardiovascular/Chest: Present: tachycardia Gastrointestinal/Abdominal: Present: normal bowel sounds, nontender, nondisten ded, soft, no organomegaly Rectal Exam: Present: deferred Male Genitals Exam: Present: deferred Back Exam: Present: no CVA tenderness Extremity Exam: Present: other - Left BKA Skin Exam: Present: other - Decreased skin turgor Lymphatic Exam: Present: no adenopathy Progress - Results and Orders Patient's Lab Results:: I have reviewed the patient's lab results. - Vital Signs Patient's Vital Signs:: I have reviewed the patient's vital signs. Vital Signs: Vital Signs 07/27/19 15:59 Temperature 36.2 C Pulse Rate 101 H Respiratory Rate 20 Blood Pressure 196/99 H O2 Sat by Pulse Oximetry 99 - Progress/Reassessment Chief Complaint: Psychiatric Problem Plan - Plan Plan: Patient is not suicidal but he certainly is hyperglycemic and hypovolemic. Patient will be admitted for fairly aggressive insulin treatment will attempt to get him back on all of his regular medications. We will see or not whether we can arrange for some sort of housing for him, other than a garage without a door. Departure Clinical Impression: Hyperglycemia, Hypovolemia - Departure Disposition: Still a patient Condition: Fair
[2019-07-27 16:24] LABS: Urine Bilirubin Negative (NEGATIVE); Urine Blood 25 /ul (NEGATIVE); Urine Ketone Negative (NEGATIVE); Urine Nitrite Negative (NEGATIVE); Urine Protein 30 mg/dL (NEGATIVE); Urine Urobilinogen Normal (NORMAL)
[2019-07-27 16:30] LABS: Urine Appearance Clear (CLEAR)
[2019-07-27 16:31] LABS: Hematocrit 45.1 % (42.0-52.0); Hemoglobin 15.1 gm/dL (13.5-18.0); Mean Cell Volume 81.7 fl (78-100); Mean Corpuscular Hemoglobin 27.4 pg (27-31); Mean Corpuscular Hgb Conc 33.5 g/dl (32-36); Mean Platelet Volume 10.2 fl (8-11.3); Neutrophil # 4.9 K/mm3 (1.3-6.0); Neutrophil % 74.5 % (42-75.0); Platelet Count 188 K/mm3 (150-450); Red Blood Count 5.52 M/mm3 (4.7-6.0); White Blood Count 6.5 K/mm3 (4.0-10.5)
[2019-07-27 16:31] LABS: Urine Bacteria None Seen; Urine Color Pale Yellow; Urine RBC 0-5 /hpf (0-5); Urine WBC None Seen /hpf (0-5)
[2019-07-27 16:39] LABS: Cocaine Ur Negative (NEGATIVE); Urine Barbiturate Negative (NEGATIVE); Urine Benzodiazepines Negative (NEGATIVE); Urine Opiates Negative (NEGATIVE); Urine PCP Negative (NEGATIVE); Urine THC Negative (NEGATIVE)
[2019-07-27 16:56] LABS: ALT 46 U/L (19-67); AST 23 U/L (0-48); Albumin * 2.7 gm/dl (3.4-5.0); Alkaline Phosphatase * 193 U/L (50-170); Anion Gap 14.4 mmol/L (6.8-13.8); BUN/Creatinine Ratio 13.8 (9.0-21.6); Bilirubin, Total 0.3 mg/dL (0.0-1.1); Blood Urea Nitrogen 16 mg/dL (6-23); Ca. Corrected For Albumin 8.8 mg/dL (8.4-10.2); Calcium * 8.1 mg/dL (7.9-10.9); Carbon Dioxide 26.6 mmol/L (24-32.6); Chloride 96 mmol/L (97-106); Salicylate Less than 2.8 mg/dL (2.8-20.0); Sodium 133 mmol/L (132-142); TSH * 1.031 uIU/mL (0.358-3.74); Total Protein 6.7 gm/dL (6.2-8.2)
[2019-07-27 16:57] LABS: Glucose * 696 mg/dL (70-110)
[2019-07-27] MEDS ORDERED: INSULIN REGULAR, HUMAN 100 UNITS/ML VIAL IV ONE ×2 (17:24→20:15)
[2019-07-27] MEDS ORDERED: INSULIN REGULAR, HUMAN 100 UNITS/ML VIAL SC ONE (17:25)
[2019-07-27] MEDS: NORMAL SALINE 1,000 ML IV ONE ×2 (18:21→21:41)
[2019-07-27] MEDS ORDERED: KETOROLAC TROMETHAMINE 30 MG/ML VIAL IV ONE (18:22)
[2019-07-27] MEDS ORDERED: NICOTINE 21 MG PATC TD SCH (18:30)
[2019-07-27] MEDS ORDERED: ACETAMINOPHEN 325 MG TABLET PO PRN (19:49)
[2019-07-27] MEDS ORDERED: NORMAL SALINE 1,000 ML IV ONE (20:15)
--- NOTE | 2019-07-27 20:28 | HP ---
Chief Complaint - Chief Complaint Date of Service: 07/27/19 Time of Service: 20:04 Chief Complaint: I have pain and I am living on the streets History of Present Illness: 54-year-old male with past medical history of generalized anxiety disorder, depression, methamphetamine abuser, aortic stenosis, osteoarthritis, coronary artery disease with old ND, COPD, uncontrolled type 2 diabetes, hepatitis C, lymphoma, polysubstance abuse, left [id number] amputation, pacemaker status, status post transthoracic aortic replacement, and cardiac stent, active smoker was evaluated in our ER when he was brought in by his son and his girlfriend for poor living conditions and depressed mood. The HPI was provided at bedside by the patient himself he appears to be severely depressed and is begging for pain medications. Patient reports that he has been living on the streets for multiple years now and is currently living in a garage that has no door and therefore no security. His family members became alarmed with his living arrangement especially given the cold weather recently. When he went to check on him they found her in a deplorable state filthy and unbathed for multiple days and decided to bring him to the ER. Patient admits that is been weeks if not months since taking any medications, he reports multiple episodes of severe hyperglycemia sometimes reaching above 1000. However due to the lack of a secure location he says he is unable to keep any medication with him and that is why he is been unable to take them. Patient admits to injecting methamphetamine for pain control because no one wants to give him pain meds and he is a current smoker. He denies any fever or chills but says that he has worsening depression and wishes to however he denies any suicidal ideation. Medical History (Last Reviewed 07/27/19 @ 19:07 by Jose Luis Oliver RN) Diabetes mellitus type 2 with complications, uncontrolled (Chronic) COPD (chronic obstructive pulmonary disease) (Chronic) Anxiety and depression (Chronic) Polysubstance abuse (Chronic) Chronic pain with drug dependence (Chronic) Osteomyelitis of foot (Acute) Poorly controlled diabetes mellitus (Chronic) Aortic stenosis (Chronic) Hepatitis C (Chronic) CAD (coronary artery disease) (Chronic) Acute ND (Acute) Anxiety Aortic stenosis Arthritis Lymphoma Surgical History: Surgical History (Last Reviewed 07/27/19 @ 19:07 by Jose Luis Oliver RN) Amputated below knee H/O heart artery stent Pacemaker S/P TAVR (transcatheter aortic valve replacement) Family History: Family History (Last Reviewed 07/27/19 @ 19:07 by Jose Luis Oliver RN) Other No pertinent family history Social History: (Last Reviewed 07/27/19 @ 19:07 by Jose Luis Oliver RN) Tobacco: Smoking Status: Current every day smoker Smoking cigarettes per day: 10 Alcohol: alcohol intake: never Substance Use: substance use type: marijuana, methamphetamine Peds Patient Hx - Developmental: No Pertinent Hx Peds Patient Hx - Medical: No Pertinent Hx Peds Patient Hx - Cardiac/Respiratory: No Pertinent Hx Peds Patient Hx - Surgical: No Surgical History Patient History - Cancer: No Hx of Cancer Review Of Systems (GEN) - Review of Systems Generalized/Overall Review: Present: No Symptoms Reported EENTM: Present: No Symptoms Reported Respiratory: Present: No Symptoms Reported Cardiac: Present: No Symptoms Reported Abdominal: Present: No Symptoms Reported Genitourinary: Present: No Symptoms Reported Musculoskeletal: Present: Joint Pain, Back Pain, Muscle Pain Neurological: Present: Anxiety, Depressed, Emotional Problems Skin: Present: No Symptoms Reported Endocrine: Present: No Symptoms Reported Immunizations: IMMUNIZATION HX Immunizations Up to Date Yes History of Influenza Vaccine No Hx Pneumococcal Vaccination No Allergies/Adverse Reactions: Allergies Allergy/AdvReac Type Severity Reaction Status Date / Time naproxen AdvReac Severe Verified 07/27/19 19:08 topiramate [From Topamax] AdvReac Severe Verified 07/27/19 19:08 acetaminophen [From Tylenol] AdvReac Other Verified 07/27/19 19:08 Home Medications: HOME MEDICATIONS NK 12/30/18 [Last Taken Unknown] Exam - Exam Vital Signs: Vital Signs - Last Taken Temp 36.8 C 07/27/19 19:15 Pulse 95 07/27/19 19:15 Resp 20 07/27/19 19:15 BP 152/95 H 07/27/19 19:15 Pulse Ox 98 07/27/19 19:15 Constitutional: Present: Alert, Oriented x3, Cooperative, Well developed, No distress, Elderly, Looks Older than stated age ENT Exam: Present: normal ENT inspection, hearing grossly normal, pharynx normal, TMs normal Eye Exam: bilateral eye: normal inspection, PERRL, EOMI Neck: Present: non-tender, full range of motion, supple, normal inspection, trachea midline Back Exam: Present: normal inspection, no CVA tenderness, no vertebral tenderness Breasts: Present: Exam deferred Respiratory: Present: chest non-tender, lungs clear, normal breath sounds, no respiratory distress, no accessory muscle use Cardiovascular/Chest: Present: normal peripheral pulses, regular rate, rhythm, no chest tenderness, no edema, no gallop, no JVD, no murmur, no rub Peripheral Pulses: carotid (R): 3+, carotid (L): 3+, femoral (R): 3+, femoral (L): 3+, dorsalis-pedis (R): 3+, dorsalis-pedis (L): 3+ Abdomen: Present: Normal bowel sounds, soft, nontender, nondistended, no rebound tenderness, no hepatospenomegaly, no masses /Rectal: Present: Exam deferred Extremity: Present: normal range of motion, non-tender, no pedal edema, no calf tenderness, other - Left below the knee amputation Skin Exam: Present: normal color, warm/dry, no cyanosis Lymphatic: Present: no adenopathy Neurologic: 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: 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, normal cerebellar test, no motor/sensory deficits, alert, normal mood/affect, oriented x 3 Appearance: Present: disheveled, other - Emotional distress and tearfulness Eye contact: Present: cooperative, good eye contact, normal speech, belligerent, uncooperative Thoughts: Present: normal thought pattern, no apparent hallucination Diagnostic Studies: Abnormal Lab Results 07/27/19 07/27/19 07/27/19 Range/Units 16:15 16:25 16:25 RDW 16.0 H (11.5-14.0) % Immature Gran % (Auto) 0.50 H (0.001-0.429) % Lymphocytes % 15.9 L (20-51) % Lymphocytes # 1.04 L (1.5-3.5) k/mm3 pCO2 (35.0-48.0) mmHg HCO3 (21.0-28.0) mmol/L Base Excess (-2.0-3.0) mmol/L Plasma Sodium 143 H (130-142) mmol/L Chloride 96 L (97-106) mmol/L Anion Gap 14.4 H (6.8-13.8) mmol/L Random Glucose 696 H (70-110) mg/dL Alkaline Phosphatase 193 H (50-170) U/L Albumin 2.7 L (3.4-5.0) gm/dl Urine Protein 30 H (NEGATIVE) mg/dL Urine Glucose (UA) >=1000 H (NEGATIVE) mg/dL Urine Blood 25 H (NEGATIVE) /ul Salicylates Less than 2.8 L (2.8-20.0) mg/dL Acetaminophen Less than 0.2 L (10.0-30.0) mcg/mL Serum Ketones (NEGATIVE) 07/27/19 07/27/19 Range/Units 16:30 17:55 RDW (11.5-14.0) % Immature Gran % (Auto) (0.001-0.429) % Lymphocytes % (20-51) % Lymphocytes # (1.5-3.5) k/mm3 pCO2 32.9 L (35.0-48.0) mmHg HCO3 20.5 L (21.0-28.0) mmol/L Base Excess -3.1 L (-2.0-3.0) mmol/L Plasma Sodium (130-142) mmol/L Chloride (97-106) mmol/L Anion Gap (6.8-13.8) mmol/L Random Glucose (70-110) mg/dL Alkaline Phosphatase (50-170) U/L Albumin (3.4-5.0) gm/dl Urine Protein (NEGATIVE) mg/dL Urine Glucose (UA) (NEGATIVE) mg/dL Urine Blood (NEGATIVE) /ul Salicylates (2.8-20.0) mg/dL Acetaminophen (10.0-30.0) mcg/mL Serum Ketones Positive - 20mg/dl H (NEGATIVE) Laboratory Results WBC 6.5 K/mm3 (4.0-10.5) 07/27/19 16:25 RBC 5.52 M/mm3 (4.7-6.0) 07/27/19 16:25 Hgb 15.1 gm/dL (13.5-18.0) 07/27/19 16:25 Hct 45.1 % (42.0-52.0) 07/27/19 16:25 MCV 81.7 fl (78-100) 07/27/19 16:25 MCH 27.4 pg (27-31) 07/27/19 16:25 MCHC 33.5 g/dl (32-36) 07/27/19 16:25 RDW 16.0 % (11.5-14.0) H 07/27/19 16:25 Plt Count 188 K/mm3 (150-450) 07/27/19 16:25 MPV 10.2 fl (8-11.3) 07/27/19 16:25 Immature Gran % (Auto) 0.50 % (0.001-0.429) H 07/27/19 16:25 Immature Gran # (Auto) 0.03 K/mm3 (0.000-0.0310) 07/27/19 16:25 Neutrophils % 74.5 % (42-75.0) 07/27/19 16:25 Lymphocytes % 15.9 % (20-51) L 07/27/19 16:25 Monocytes % 6.7 % (0.0-9) 07/27/19 16:25 Eosinophils % 1.5 % (0.0-3.0) 07/27/19 16:25 Basophils % 0.9 % (0.0-1.0) 07/27/19 16:25 Nucleated RBC % 0.0 k/mm3 (0-1) 07/27/19 16:25 Neutrophils # 4.9 K/mm3 (1.3-6.0) 07/27/19 16:25 Lymphocytes # 1.04 k/mm3 (1.5-3.5) L 07/27/19 16:25 Monocytes # 0.4 k/mm3 (0.0-1.0) 07/27/19 16:25 Eosinophils # 0.1 k/mm3 (0.0-0.7) 07/27/19 16:25 Absolute Basophils 0.1 k/mm3 (0.0-0.1) 07/27/19 16:25 pCO2 32.9 mmHg (35.0-48.0) L 07/27/19 17:55 pO2 84.9 mmHg (83.0-108.0) 07/27/19 17:55 HCO3 20.5 mmol/L (21.0-28.0) L 07/27/19 17:55 Total CO2 21.5 mmol/L (19.0-24.0) 07/27/19 17:55 Base Excess -3.1 mmol/L (-2.0-3.0) L 07/27/19 17:55 ABG pH 7.41 (7.35-7.45) 07/27/19 17:55 ABG O2 Sat (Measured) 96.6 % (94.0-98.0) 07/27/19 17:55 Sodium 133 mmol/L (132-142) 07/27/19 16:25 Plasma Sodium 143 mmol/L (130-142) H 07/27/19 16:25 Potassium 4.0 mmol/L (3.4-4.6) D 07/27/19 16:25 Chloride 96 mmol/L (97-106) L 07/27/19 16:25 Carbon Dioxide 26.6 mmol/L (24-32.6) 07/27/19 16:25 Anion Gap 14.4 mmol/L (6.8-13.8) H 07/27/19 16:25 BUN 16 mg/dL (6-23) 07/27/19 16:25 Creatinine 1.16 mg/dL (0.4-1.4) 07/27/19 16:25 Est GFR (Non-Af Amer) 70 mL/min (60-130) D 07/27/19 16:25 BUN/Creatinine Ratio 13.8 (9.0-21.6) 07/27/19 16:25 Random Glucose 696 mg/dL (70-110) H 07/27/19 16:25 Calcium 8.1 mg/dL (7.9-10.9) 07/27/19 16:25 Calcium Adj for Albumin 8.8 mg/dL (8.4-10.2) 07/27/19 16:25 Total Bilirubin 0.3 mg/dL (0.0-1.1) 07/27/19 16:25 AST 23 U/L (0-48) 07/27/19 16:25 ALT 46 U/L (19-67) 07/27/19 16:25 Alkaline Phosphatase 193 U/L (50-170) H 07/27/19 16:25 Total Protein 6.7 gm/dL (6.2-8.2) 07/27/19 16:25 Albumin 2.7 gm/dl (3.4-5.0) L 07/27/19 16:25 TSH 1.031 uIU/mL (0.358-3.74) 07/27/19 16:25 Urine Color Pale yellow 07/27/19 16:15 Urine Appearance Clear (CLEAR) 07/27/19 16:15 Urine pH 6.0 pH (5.0-7.0) 07/27/19 16:15 Ur Specific Ashley 1.010 SP.GR. (1.005-1.030) 07/27/19 16:15 Urine Protein 30 mg/dL (NEGATIVE) H 07/27/19 16:15 Urine Glucose (UA) >=1000 mg/dL (NEGATIVE) H 07/27/19 16:15 Urine Ketones Negative mg/dL (NEGATIVE) 07/27/19 16:15 Urine Blood 25 /ul (NEGATIVE) H 07/27/19 16:15 Urine Nitrate Negative (NEGATIVE) 07/27/19 16:15 Urine Bilirubin Negative mg/dl (NEGATIVE) 07/27/19 16:15 Prot Sulfosalicylic Acd 1+ mg/dL (0) 07/27/19 16:15 Urine Urobilinogen Normal EU/dl (NORMAL) 07/27/19 16:15 Ur Leukocyte Esterase Negative /ul (NEGATIVE) 07/27/19 16:15 Urine RBC 0-5 /hpf (0-5) 07/27/19 16:15 Urine WBC None seen /hpf (0-5) 07/27/19 16:15 Ur Epithelial Cells None seen /hpf (0-5) 07/27/19 16:15 Urine Bacteria None seen (NONE) 07/27/19 16:15 Urine Culture Comments No culture indicated 07/27/19 16:15 Salicylates Less than 2.8 mg/dL (2.8-20.0) L 07/27/19 16:25 Urine Opiates Screen Negative (NEGATIVE) 07/27/19 16:15 Acetaminophen Less than 0.2 mcg/mL (10.0-30.0) L 07/27/19 16:25 Barbiturate Screen Negative (NEGATIVE) 07/27/19 16:15 Ur Phencyclidine Scrn Negative (NEGATIVE) 07/27/19 16:15 Urine Amphetamine Negative (NEGATIVE) 07/27/19 16:15 U Benzodiazepines Scrn Negative (NEGATIVE) 07/27/19 16:15 Urine Cocaine Screen Negative (NEGATIVE) 07/27/19 16:15 Urine Marijuana (THC) Negative (NEGATIVE) 07/27/19 16:15 Ethyl Alcohol Less than 3.0 mg/dL (0.0-10.0) 07/27/19 16:25 Serum Ketones Positive - 20mg/dl (NEGATIVE) H 07/27/19 16:30 Assessment/Plan - Narrative Narrative: Patient was evaluated and medical chart was reviewed and decision to admit with a diagnosis of hyperosmolar hyperglycemic state, and dehydration. We will treat patient with multiple bolus of IV hydration to replenish his fluids and to treat his hyperglycemia, he was treated with IV insulin while in the ER and additional insulin has been ordered since recent floor. Labs on admission demonstrated a blood sugar of 696 and large serum ketones, however pH was within normal range and bicarb was only mildly decreased. After ruling out DKA treatment for his hyperglycemia was started. Currently his blood sugar is on a downward trend in response to our treatment, will continue treating with insulin and fluids and monitor with serial Dextrostix checks. Currently the patient was found to be mildly hypertensive therefore antihypertensive was ordered to be administered, but besides that he is maintaining stable vitals. Right now he is an emotional distress he is weepy and teary-eyed while telling his life story about his misfortunes and how he ended up on the street, he is also requesting opioids be administered for pain in his back knees and feet. We will order for tramadol to be administered to the patient but given his extensive history with drug addiction we will be careful with administering opioids. Patient did not come in with his list of medications therefore we will treat him with insulin and other medications to treat his symptoms, but tomorrow morning when his PCP comes to evaluate him she will determine what medications to restart him on. Patient will also be evaluated by the showcase maker in the morning who will look into assisting with living arrangements to get him off the streets. I will follow up with their findings very closely. - Assessment/Plan (1) Uncontrolled type 2 DM with hyperosmolar nonketotic hyperglycemia Problem: Acute (2) Uncontrolled diabetes mellitus Problem: Chronic Qualifiers: Diabetes mellitus type: type 2 Glycemic state: with hyperglycemia Qualified Code(s): E11.65 - Type 2 diabetes mellitus with hyperglycemia (3) Moderate dehydration Problem: Acute (4) Poor social situation Problem: Acute (5) Homelessness Problem: Acute (6) Noncompliance with medication regimen Problem: Acute (7) Methamphetamine addiction Problem: Chronic (8) Intravenous drug user Problem: Chronic (9) HTN (hypertension) Problem: Acute (10) Depression Problem: Chronic Qualifiers: Depression Type: major depressive disorder Active/Remission status: currently active Major depression episode severity: severe Psychotic features: without psychotic features (11) Anxiety Problem: Chronic
[2019-07-27] MEDS: LISINOPRIL 5 MG TABLET PO SCH (20:29)
[2019-07-27] MEDS ORDERED: LORazepam 0.5 MG TABLET PO ONE (21:00)
[2019-07-27] MEDS: traMADol HCL 50 MG TABLET PO PRN (21:03)
[2019-07-27] MEDS: INSULIN REGULAR, HUMAN 100 UNITS/ML VIAL SC SCH (21:45)
[2019-07-27] MEDS: IBUPROFEN 400 MG TABLET PO PRN (22:55)
[2019-07-28 06:13] LABS: Albumin * 2.3 gm/dl (3.4-5.0); Anion Gap 7.8 mmol/L (6.8-13.8); Bilirubin, Total 0.2 mg/dL (0.0-1.1); Ca. Corrected For Albumin 9.5 mg/dL (8.4-10.2); Calcium * 8.5 mg/dL (7.9-10.9); Potassium 3.8 mmol/L (3.4-4.6); Total Protein 5.6 gm/dL (6.2-8.2)
[2019-07-28] MEDS: traMADol HCL 50 MG TABLET PO PRN (07:03)
[2019-07-28] MEDS: INSULIN REGULAR, HUMAN 100 UNITS/ML VIAL SC SCH (07:13)
[2019-07-28] MEDS: IBUPROFEN 400 MG TABLET PO PRN (08:08)
[2019-07-28] MEDS: LISINOPRIL 5 MG TABLET PO SCH (08:59)
[2019-07-28] MEDS ORDERED: FAMOTIDINE 20 MG TABLET PO SCH (09:00)
--- NOTE | 2019-07-28 09:28 | DS ---
(1) Uncontrolled type 2 DM with hyperosmolar nonketotic hyperglycemia Problem: Acute (2) Uncontrolled diabetes mellitus Problem: Chronic Qualifiers: Diabetes mellitus type: type 2 Glycemic state: with hyperglycemia Qualified Code(s): E11.65 - Type 2 diabetes mellitus with hyperglycemia (3) Moderate dehydration Problem: Acute (4) Poor social situation Problem: Acute (5) Homelessness Problem: Acute (6) Noncompliance with medication regimen Problem: Acute (7) Methamphetamine addiction Problem: Chronic (8) Intravenous drug user Problem: Chronic (9) HTN (hypertension) Problem: Acute (10) Depression Problem: Chronic Qualifiers: Depression Type: major depressive disorder Active/Remission status: currently active Major depression episode severity: severe Psychotic features: without psychotic features (11) Anxiety Problem: Chronic Date of Discharge:: 07/28/19 Description of Stay: 54-year-old male admitted for nonketotic hyperosmolar hyperglycemia and dehydration was evaluated at bedside and was found to be afebrile and in no acute distress. Patient maintained stable vitals throughout the night besides ongoing complaining and demanding opioids there were no other adverse events reported. residential case manager informed me this morning that he is a frequent flyer a nd his resources are very limited as to where he can be placed for [facility]. Patient has been homeless for multiple years and has exhausted all local shelters or other forms of public housing. Therefore clinically there is no reason to keep him in the hospital however his social situation is still dire. Patient has hyperglycemia has been medically improved in response to insulin and ongoing IV hydration. Labs this morning demonstrate balance electrolytes and there is no ketones on serum. Therefore given these findings we we will discharge patient home with instructions to establish with a PCP to help in the management of his chronic conditions specifically diabetes. Patient will be discharged with a prescription for an antidepressant to manage his depression and anxiety and metformin which he says he ran out of and has not taken in multiple months. He was counseled on the importance of compliance with his medication and checking his sugars regularly to avoid further readmissions to the hospital. Procedures Performed: none Results and Findings: Lab Pending Results 07/27/19 16:15: Urine Color Pale yellow, Urine Appearance Clear, Urine pH 6.0, Ur Specific [place] 1.010, Urine Protein 30 H, Urine Glucose (UA) >=1000 H, Urine Ketones Negative, Urine Blood 25 H, Urine Nitrate Negative, Urine Bilirubi n Negative, Prot Sulfosalicylic Acd 1+, Urine Urobilinogen Normal, Ur Leukocyte Esterase Negative, Urine RBC 0-5, Urine WBC None seen, Ur Epithelial Cells None seen, Urine Bacteria None seen, Urine Culture Comments No culture indicated 07/27/19 16:15: Urine Opiates Screen Negative, Barbiturate Screen Negative, Ur Phencyclidine Scrn Negative, Urine Amphetamine Negative, U Benzodiazepines Scrn Negative, Urine Cocaine Screen Negative, Urine Marijuana (THC) Negative 07/27/19 16:25: WBC 6.5, RBC 5.52, Hgb 15.1, Hct 45.1, MCV 81.7, MCH 27.4, MCHC 33.5, RDW 16.0 H, Plt Count 188, MPV 10.2, Immature Gran % (Auto) 0.50 H, Immature Gran # (Auto) 0.03, Neutrophils % 74.5, Lymphocytes % 15.9 L, Monocytes % 6.7, Eosinophils % 1.5, Basophils % 0.9, Nucleated RBC % 0.0, Neutrophils # 4.9, Lymphocytes # 1.04 L, Monocytes # 0.4, Eosinophils # 0.1, Absolute Basophils 0.1 07/27/19 16:25: Sodium 133, Plasma Sodium 143 H, Potassium 4.0 D, Chloride 96 L, Carbon Dioxide 26.6, Anion Gap 14.4 H, BUN 16, Creatinine 1.16, Est GFR (Non- Af Amer) 70 D, BUN/Creatinine Ratio 13.8, Random Glucose 696 H, Calcium 8.1, Calcium Adj for Albumin 8.8, Total Bilirubin 0.3, AST 23, ALT 46, Alkaline Phosphatase 193 H, Total Protein 6.7, Albumin 2.7 L, TSH 1.031, Salicylates Less than 2.8 L, Acetaminophen Less than 0.2 L, Ethyl Alcohol Less than 3.0 07/27/19 16:30: Serum Ketones Positive - 20mg/dl H 07/27/19 17:55: pCO2 32.9 L, pO2 84.9, HCO3 20.5 L, Total CO2 21.5, Base Excess -3.1 L, ABG pH 7.41, ABG O2 Sat (Measured) 96.6 07/28/19 05:45: Sodium 134, Plasma Sodium 136, Potassium 3.8, Chloride 102, Carbon Dioxide 28.0, Anion Gap 7.8, BUN 28 H D, Creatinine 0.70, Est GFR (Non-Af Amer) 125 D, BUN/Creatinine Ratio 40.0 H, Random Glucose 241 H D, Calcium 8.5, Calcium Adj for Albumin 9.5, Total Bilirubin 0.2, AST 32, ALT 45, Alkaline Phosphatase 134, Total Protein 5.6 L, Albumin 2.3 L Discharge Location: Home Disposition: Home self-care Condition: Fair Face to Face Encounter completed per [facility] Guidelines: No Discharge Activity: Activity as tolerated Discharge Diet: Consistent carbs Prescriptions (Any new or edited meds): metFORMIN HCL [Metformin HCl] 1,000 mg PO BID #60 tablet Sertraline HCl [Zoloft] 50 mg PO DAILY #30 tab Transmission Status: Pending to [facility] - [place], [place] Complete Home Medications List: Complete Home Medication List: Sertraline HCl [Zoloft] 50 mg PO DAILY #30 tab 07/28/19 metFORMIN HCL [Metformin HCl] 1,000 mg PO BID #60 tablet 07/28/19
[2019-07-28 14:39] VITALS: BP 205/128
[2019-07-29] MEDS ORDERED: LISINOPRIL 10 MG TABLET PO SCH (09:00)
== END 2019-07-28 14:45 | disposition home or self-care (01) ==
LOC: ER 15:46 → MS 15:46
PROVIDERS: ADMIT Family Medicine; ATTEND Family Medicine
CPT/HCPCS: 36415; 36600; 80050; 80053; 80307; 81001; 82009; 82803; 96372; 96374; 96375; 99285; G0378; G0480

== ENCOUNTER 2019-11-18 13:16 | Inpatient (IN) ==
[2019-11-18 13:41] LABS: Hematocrit 40.7 % (42.0-52.0); Hemoglobin 13.2 gm/dL (13.5-18.0); Mean Cell Volume 79.8 fl (78-100); Mean Corpuscular Hemoglobin 25.9 pg (27-31); Mean Corpuscular Hgb Conc 32.4 g/dl (32-36); Mean Platelet Volume 9.6 fl (8-11.3); Neutrophil # 6.1 K/mm3 (1.3-6.0); Platelet Count 240 K/mm3 (150-450); Red Cell Distribution Width 14.4 % (11.5-14.0); White Blood Count 7.5 K/mm3 (4.0-10.5)
[2019-11-18 13:54] LABS: Albumin * 2.1 gm/dl (3.4-5.0); BUN/Creatinine Ratio 28.1 (9.0-21.6); Bilirubin, Total 0.3 mg/dL (0.0-1.1); CRP 4.7 mg/dL (0.0-0.9); Ca. Corrected For Albumin 9.4 mg/dL (8.4-10.2); Calcium * 8.2 mg/dL (7.9-10.9); Carbon Dioxide 28.7 mmol/L (24-32.6); Potassium 3.7 mmol/L (3.4-4.6); Total Protein 6.7 gm/dL (6.2-8.2)
[2019-11-18] MEDS ORDERED: MORPHINE SULFATE 2 MG/ML DISP.SYRIN IV ONE ×2 (14:03→15:27)
[2019-11-18] MEDS ORDERED: diphenhydrAMINE HCL 50 MG/ML VIAL IV ONE (14:04)
[2019-11-18] MEDS ORDERED: INSULIN REGULAR, HUMAN 100 UNITS/ML VIAL SC ONE (14:04)
[2019-11-18] MEDS ORDERED: PIPERACILLIN SODIUM/TAZOBACTAM 3.375 GM in DEXTROSE 5 % IN WATER 100 ML IV ONE ×2 (14:30)
[2019-11-18 14:42] LABS: Cocaine Ur Negative (NEGATIVE); Urine Barbiturate Negative (NEGATIVE); Urine Benzodiazepines Negative (NEGATIVE); Urine Opiates Negative (NEGATIVE); Urine PCP Negative (NEGATIVE); Urine THC Negative (NEGATIVE)
[2019-11-18] MEDS ORDERED: VANCOMYCIN/WATER FOR INJ (PEG) 1 GM/200 ML BAG IV SCH (16:00)
[2019-11-18] MEDS ORDERED: PIPERACILLIN SODIUM/TAZOBACTAM 3.375 GM in DEXTROSE 5 % IN WATER 100 ML IV SCH ×2 (16:00)
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
[2019-11-18 17:37] LABS: Hemoglobin A1C 11.7 % (4.00-6.0)
[2019-11-18] MEDS: traMADol HCL 50 MG TABLET PO PRN (18:02)
[2019-11-18] MEDS ORDERED: ALBUTEROL SULFATE 2.5 MG/0.5 ML VIAL.NEB IH PRN (18:12)
[2019-11-18] MEDS: MORPHINE SULFATE 2 MG/ML DISP.SYRIN IV PRN (19:28)
[2019-11-18] MEDS: LISINOPRIL 20 MG TABLET PO SCH (20:49)
[2019-11-18] MEDS: INSULIN LISPRO 100 UNITS/ML VIAL SC SCH (20:52)
[2019-11-18] MEDS: PIPERACILLIN SODIUM/TAZOBACTAM 3.375 GM in DEXTROSE 5 % IN WATER 100 ML IV SCH ×2 (20:53)
[2019-11-18] MEDS ORDERED: INSULIN GLARGINE,HUM.REC.ANLOG 100 UNITS/ML VIAL SC SCH ×2 (21:00→21:15)
[2019-11-18] MEDS: INSULIN GLARGINE,HUM.REC.ANLOG 100 UNITS/ML VIAL SC SCH (21:44)
[2019-11-19] MEDS: MORPHINE SULFATE 2 MG/ML DISP.SYRIN IV PRN ×5 (00:03→21:10)
[2019-11-19] MEDS: PIPERACILLIN SODIUM/TAZOBACTAM 3.375 GM in DEXTROSE 5 % IN WATER 100 ML IV SCH ×6 (03:32→22:01)
[2019-11-19] MEDS: traMADol HCL 50 MG TABLET PO PRN ×2 (03:42→12:45)
[2019-11-19] MEDS: INSULIN LISPRO 100 UNITS/ML VIAL SC SCH ×4 (07:42→21:13)
[2019-11-19] MEDS: LISINOPRIL 20 MG TABLET PO SCH (10:25)
[2019-11-19] MEDS: INSULIN GLARGINE,HUM.REC.ANLOG 100 UNITS/ML VIAL SC SCH ×2 (10:25→21:13)
[2019-11-19] MEDS: metFORMIN HCL 500 MG TABLET PO SCH ×2 (10:25→17:18)
--- NOTE | 2019-11-19 12:07 | PN ---
Subjective - Date and Time Seen Date: 11/19/19 Time: 12:02 Subjective Narrative: Patient is afebrile. He has noticed that her redness of his lower extremity is going away. He still is complaining of foot and leg pain. Objective - Review of Systems Generalized/Overall Review: Denies: Weakness, Chills EENTM: Reports: Blurred Vision Respiratory: Denies: Cough, Shortness of Breath Cardiac: Denies: Chest Pain, Edema, Palpitations Abdominal: Denies: Nausea, Vomiting, Abdominal Pain Genitourinary Symptoms: Denies: Urgency, Frequency Musculoskeletal Complaints: Reports: Joint Pain Neurological: Denies: Headache Skin: Reports: Other - skin discoloration. Denies: Lesions, Rash - Vitals Vitals: Last Vital Signs Temp 36.8 C 11/19/19 10:03 Pulse 80 11/19/19 10:25 Resp 22 H 11/19/19 10:03 BP 159/83 H 11/19/19 10:25 Pulse Ox 95 11/19/19 10:03 - Abnormal Lab Findings Abnormal Lab Findings: Abnormal Lab Results 11/18/19 11/18/19 11/18/19 Range/Units 12:35 13:38 13:38 Hgb 13.2 L (13.5-18.0) gm/dL Hct 40.7 L (42.0-52.0) % MCH 25.9 L (27-31) pg RDW 14.4 H (11.5-14.0) % Neutrophils % 82.0 H (42-75.0) % Lymphocytes % 9.4 L (20-51) % Neutrophils # 6.1 H (1.3-6.0) K/mm3 Lymphocytes # 0.70 L (1.5-3.5) k/mm3 ESR 76 H (0-10) mm/hr Est GFR (Non-Af Amer) (60-130) mL/min BUN/Creatinine Ratio (9.0-21.6) Random Glucose (70-110) mg/dL Hemoglobin A1c 11.7 H (4.00-6.0) % C-Reactive Prot, Quant (0.0-0.9) mg/dL Albumin (3.4-5.0) gm/dl 11/18/19 Range/Units 13:38 Hgb (13.5-18.0) gm/dL Hct (42.0-52.0) % MCH (27-31) pg RDW (11.5-14.0) % Neutrophils % (42-75.0) % Lymphocytes % (20-51) % Neutrophils # (1.3-6.0) K/mm3 Lymphocytes # (1.5-3.5) k/mm3 ESR (0-10) mm/hr Est GFR (Non-Af Amer) 139 H (60-130) mL/min BUN/Creatinine Ratio 28.1 H (9.0-21.6) Random Glucose 433 H (70-110) mg/dL Hemoglobin A1c (4.00-6.0) % C-Reactive Prot, Quant 4.7 H (0.0-0.9) mg/dL Albumin 2.1 L (3.4-5.0) gm/dl - Exam Constitutional: Present: Alert, Oriented x3, Cooperative ENT Exam: Present: hearing grossly normal Neck: Present: supple. Absent: lymphadenopathy (R), lymphadenopathy (L) Respiratory: Present: decreased breath sounds, rhonchi, No wheezing Cardiovascular/Chest: Present: regular rate, rhythm, no JVD, no murmur Abdomen: Present: Normal bowel sounds, soft, nontender, nondistended Extremity: Present: no calf tenderness Assessment/Plan Plan Narrative: Layla Ordaz is a 54-year-old white male who was admitted for cellulitis and gangrene of his first and second toes, right leg and foot. He also has osteomyelitis. Orthopedic is seen him and the plan is for a BKA on Thursday. In the meantime we will continue with IV antibiotics and insulin coverage for his uncontrolled diabetes. We will increase his insulin long-acting to 25 units subcu twice daily and continue him with short acting insulin 3 times daily before meals. We will try to get medical records from [facility] and clinics. - Problems/Diagnosis (1) Osteomyelitis Problem: Acute (2) Cellulitis Problem: Acute (3) Gangrenous toe Problem: Acute (4) Uncontrolled diabetes mellitus Problem: Chronic Qualifiers: Diabetes mellitus type: type 2 Glycemic state: with hyperglycemia Qualified Code(s): E11.65 - Type 2 diabetes mellitus with hyperglycemia (5) Hypertension Problem: Chronic Qualifiers: Hypertension type: essential hypertension Qualified Code(s): I10 - Essential (primary) hypertension (6) Homeless single person Problem: Acute (7) Tobacco abuse Problem: Chronic (8) Depression Problem: Chronic (9) Hyperglycemia due to type 2 diabetes mellitus Problem: Acute (10) Aortic stenosis Problem: Chronic (11) CAD (coronary artery disease) Problem: Chronic (12) Pacemaker Problem: Chronic
[2019-11-19] MEDS: LISINOPRIL 40 MG TABLET PO SCH (21:10)
[2019-11-20] MEDS: MORPHINE SULFATE 2 MG/ML DISP.SYRIN IV PRN ×5 (01:24→21:03)
[2019-11-20] MEDS: PIPERACILLIN SODIUM/TAZOBACTAM 3.375 GM in DEXTROSE 5 % IN WATER 100 ML IV SCH ×6 (03:33→20:53)
[2019-11-20 05:12] LABS: Hematocrit 36.5 % (42.0-52.0); Hemoglobin 11.5 gm/dL (13.5-18.0); Mean Cell Volume 79.9 fl (78-100); Mean Corpuscular Hemoglobin 25.2 pg (27-31); Mean Corpuscular Hgb Conc 31.5 g/dl (32-36); Neutrophil # 5.2 K/mm3 (1.3-6.0); Neutrophil % 72.3 % (42-75.0); Platelet Count 257 K/mm3 (150-450); Red Blood Count 4.57 M/mm3 (4.7-6.0); Red Cell Distribution Width 14.3 % (11.5-14.0); White Blood Count 7.2 K/mm3 (4.0-10.5)
[2019-11-20 05:19] LABS: Anion Gap 9.2 mmol/L (6.8-13.8); BUN/Creatinine Ratio 28.4 (9.0-21.6); Carbon Dioxide 29.4 mmol/L (24-32.6); Estimated Creat Clear 134.2; Potassium 3.6 mmol/L (3.4-4.6)
[2019-11-20] MEDS: INSULIN LISPRO 100 UNITS/ML VIAL SC SCH ×4 (07:43→20:23)
[2019-11-20] MEDS: LISINOPRIL 40 MG TABLET PO SCH ×2 (08:21→20:10)
[2019-11-20] MEDS: INSULIN GLARGINE,HUM.REC.ANLOG 100 UNITS/ML VIAL SC SCH ×2 (08:21→20:24)
[2019-11-20] MEDS: metFORMIN HCL 500 MG TABLET PO SCH ×2 (08:21→17:04)
--- NOTE | 2019-11-20 13:22 | PN ---
Subjective - Date and Time Seen Date: 11/20/19 Time: 13:16 Subjective Narrative: afebrile. says his foot and leg is awful painful. afebrile. Objective - Review of Systems Generalized/Overall Review: Denies: Weakness, Chills, Fever EENTM: Reports: Blurred Vision Respiratory: Denies: Cough, Shortness of Breath, Orthopnea Cardiac: Reports: Edema. Denies: Chest Pain, Palpitations Abdominal: Denies: Nausea, Vomiting, Hematemesis Genitourinary Symptoms: Denies: Urgency, Frequency Musculoskeletal Complaints: Reports: Joint Pain, Joint Swelling Skin: Reports: Other - discolaration. Denies: Lesions, Rash - Vitals Vitals: Last Vital Signs Temp 36.9 C 11/20/19 09:00 Pulse 94 11/20/19 09:00 Resp 20 11/20/19 09:00 BP 171/97 H 11/20/19 09:00 Pulse Ox 96 11/20/19 09:00 - Abnormal Lab Findings Abnormal Lab Findings: Abnormal Lab Results 11/20/19 11/20/19 Range/Units 04:45 04:45 RBC 4.57 L (4.7-6.0) M/mm3 Hgb 11.5 L (13.5-18.0) gm/dL Hct 36.5 L (42.0-52.0) % MCH 25.2 L (27-31) pg MCHC 31.5 L (32-36) g/dl RDW 14.3 H (11.5-14.0) % Lymphocytes % 15.5 L (20-51) % Lymphocytes # 1.12 L (1.5-3.5) k/mm3 Est GFR (Non-Af Amer) 131 H (60-130) mL/min BUN/Creatinine Ratio 28.4 H (9.0-21.6) Random Glucose 191 H D (70-110) mg/dL - Exam Constitutional: Present: Alert, Oriented x3, Cooperative ENT Exam: Present: hearing grossly normal Neck: Present: supple. Absent: lymphadenopathy (R), lymphadenopathy (L) Respiratory: Present: normal breath sounds, decreased breath sounds, wheezing - ocassional, No rales Cardiovascular/Chest: Present: regular rate, rhythm, no JVD, no murmur Abdomen: Present: Normal bowel sounds, soft, nontender, nondistended Extremity: Present: normal range of motion, pedal edema, other - BKA -LLE; RLE- positive swelling , tenderness, erythema siginificantly less, positive gangrene - 2 toes Assessment/Plan Plan Narrative: Layla was admitted for cellulitis, gangrene , Osteomyelitis on IV zosyn and Vanco. Wound culture is growing Staph species. He is going for RBKA on thursday. BS is trending down. - Problems/Diagnosis (1) Osteomyelitis Problem: Acute (2) Cellulitis Problem: Acute (3) Gangrenous toe Problem: Acute (4) Uncontrolled diabetes mellitus Problem: Chronic Qualifiers: Diabetes mellitus type: type 2 Glycemic state: with hyperglycemia Qualified Code(s): E11.65 - Type 2 diabetes mellitus with hyperglycemia (5) Hypertension Problem: Chronic Qualifiers: Hypertension type: essential hypertension Qualified Code(s): I10 - Essential (primary) hypertension (6) Homeless single person Problem: Acute (7) Tobacco abuse Problem: Chronic (8) Depression Problem: Chronic (9) Hyperglycemia due to type 2 diabetes mellitus Problem: Acute (10) Aortic stenosis Problem: Chronic (11) CAD (coronary artery disease) Problem: Chronic (12) Pacemaker Problem: Chronic
[2019-11-20] MEDS ORDERED: VANCOMYCIN/WATER FOR INJ (PEG) 1 GM/200 ML BAG IV SCH (13:30)
[2019-11-20] MEDS: VANCOMYCIN/WATER FOR INJ (PEG) 2 GM/400 ML BAG IV SCH (14:42)
[2019-11-20] MEDS: traMADol HCL 50 MG TABLET PO PRN (14:47)
[2019-11-20] MEDS ORDERED: ONDANSETRON HCL/PF 2 MG/ML VIAL IV PRN (18:38)
[2019-11-20] MEDS: DOCUSATE SODIUM 100 MG CAPSULE PO SCH (20:10)
[2019-11-21] MEDS: MORPHINE SULFATE 2 MG/ML DISP.SYRIN IV PRN ×3 (01:17→09:22)
[2019-11-21] MEDS: VANCOMYCIN/WATER FOR INJ (PEG) 2 GM/400 ML BAG IV SCH (01:17)
[2019-11-21] MEDS: PIPERACILLIN SODIUM/TAZOBACTAM 3.375 GM in DEXTROSE 5 % IN WATER 100 ML IV SCH ×2 (05:20)
[2019-11-21] MEDS: INSULIN LISPRO 100 UNITS/ML VIAL SC SCH ×2 (07:31→11:43)
--- NOTE | 2019-11-21 08:46 | PN ---
Subjective - Date and Time Seen Date: 11/21/19 Time: 08:38 Subjective Narrative: patient growing MRSA on wound culture. had N/V yesterday. had BM yesterday. Objective - Review of Systems Generalized/Overall Review: Denies: Weakness, Chills, Fever EENTM: Reports: Blurred Vision Respiratory: Reports: Cough, Wheezing. Denies: Shortness of Breath Cardiac: Denies: Chest Pain, Edema, Palpitations Abdominal: Reports: Nausea, Vomiting. Denies: Hematemesis, Abdominal Pain Genitourinary Symptoms: Denies: Urgency, Frequency Musculoskeletal Complaints: Reports: Joint Pain Neurological: Denies: Headache Skin: Denies: Lesions, Rash Misc: All systems neg except as marked - Vitals Vitals: Last Vital Signs Temp 37.2 C 11/21/19 06:00 Pulse 85 11/21/19 06:00 Resp 16 11/21/19 06:00 BP 142/73 H 11/21/19 06:00 Pulse Ox 97 11/21/19 06:00 - Abnormal Lab Findings Abnormal Lab Findings: Abnormal Lab Results 11/21/19 11/21/19 Range/Units 06:19 06:19 ESR 74 H (0-10) mm/hr C-Reactive Prot, Quant 3.0 H (0.0-0.9) mg/dL - Exam Constitutional: Present: Alert, Oriented x3, Cooperative ENT Exam: Present: hearing grossly normal Neck: Present: supple. Absent: lymphadenopathy (R), lymphadenopathy (L) Respiratory: Present: decreased breath sounds, wheezing, No rales Cardiovascular/Chest: Present: regular rate, rhythm, no JVD, systolic murmur Abdomen: Present: Normal bowel sounds, soft, nontender, nondistended Extremity: Present: no calf tenderness, other - no siginificant change except for erythema Assessment/Plan Plan Narrative: Patient does not want BKA. He is wanting to do TMA. I told him that healing will be better and more functional with the BKA. I gave him the example of the [place] athlete who run the Olympics 100 meter dash with 2 BKA prosthesis. He will think about it. No more N/V today likely due to narcotic pain medications. MRSA sensitive to Vanco. Continue Vanco and stop Zosyn. - Problems/Diagnosis (1) Osteomyelitis Problem: Acute (2) Cellulitis Problem: Acute (3) Gangrenous toe Problem: Acute (4) Uncontrolled diabetes mellitus Problem: Chronic Qualifiers: Diabetes mellitus type: type 2 Glycemic state: with hyperglycemia Qualified Code(s): E11.65 - Type 2 diabetes mellitus with hyperglycemia (5) Hypertension Problem: Chronic Qualifiers: Hypertension type: essential hypertension Qualified Code(s): I10 - Essential (primary) hypertension (6) Homeless single person Problem: Acute (7) Tobacco abuse Problem: Chronic (8) Depression Problem: Chronic (9) Hyperglycemia due to type 2 diabetes mellitus Problem: Acute (10) Aortic stenosis Problem: Chronic (11) CAD (coronary artery disease) Problem: Chronic (12) Pacemaker Problem: Chronic
[2019-11-21] MEDS ORDERED: ALBUTEROL SULFATE 2.5 MG/0.5 ML VIAL.NEB IH PRN (08:47)
[2019-11-21] MEDS: LISINOPRIL 40 MG TABLET PO SCH (09:11)
[2019-11-21] MEDS: metFORMIN HCL 500 MG TABLET PO SCH (09:11)
[2019-11-21] MEDS: DOCUSATE SODIUM 100 MG CAPSULE PO SCH (09:11)
[2019-11-21] MEDS: INSULIN GLARGINE,HUM.REC.ANLOG 100 UNITS/ML VIAL SC SCH (09:11)
[2019-11-21] MEDS ORDERED: ENOXAPARIN SODIUM 40 MG/0.4 ML SYRG SC SCH (09:15)
[2019-11-21 10:13] VITALS: BP 187/87
[2019-11-21] MEDS: traMADol HCL 50 MG TABLET PO PRN (12:19)
--- NOTE | 2019-11-21 16:32 | PN ---
Subjective - Date and Time Seen Date: 11/21/19 Time: 08:00 Subjective Narrative: Patient notes he still has significant pain with his right foot. Patient notes his pain control the weekend has been okay with narcotic pain medication. He still is reluctant towards a below-knee amputation. Patient states he wishes to only have have his foot cut off. Patient states he will not proceed with any significant bony amputation at this time. Patient states he wishes to go home. Patient notes his pain tends to be intermittent, no significant aggravating or alleviating factors outside of pain medication. Objective - Vitals Vitals: Last Vital Signs Temp 36.4 C 11/21/19 10:00 Pulse 93 11/21/19 10:00 Resp 18 11/21/19 10:00 BP 187/87 H 11/21/19 10:00 Pulse Ox 97 11/21/19 10:00 - Abnormal Lab Findings Abnormal Lab Findings: Abnormal Lab Results 11/21/19 11/21/19 Range/Units 06:19 06:19 ESR 74 H (0-10) mm/hr C-Reactive Prot, Quant 3.0 H (0.0-0.9) mg/dL - Exam Constitutional: Present: Alert, Cooperative, No distress Extremity: Present: other - RLE--> significant necrosis of right great and second toes distally, diffuse erythema throughout the midfoot, medial midfoot wound that also appears infectious, slowed distal capillary refill, decreased sensation diffusely, significant tenderness about midfoot and ankle, erythema appears to extend to just above the ankle mildly, diffuse decreased range of motion, 4+/5 diffuse strength Assessment/Plan Plan Narrative: -54 y/o male who was admitted by medicine for gangrene and cellulitis of right foot as well as necrosis and osteomyelitis of great and second toe. Patient has been here over the weekend receiving IV antibiotics broad-spectrum including Pseudomonas coverage. Culture from the wound grew MRSA, antibiotics have been tapered with appropriate coverage for MRSA at this time. This was based on sensitivity and specificity results. Have discussed at length with the patient the possible amputation results as well as the risk and benefits of each procedure including a transmetatarsal versus below-knee amputation. At this time due to patient's diffuse complications as well as his chronic medical conditions, the medial midfoot wound and previous failure of a transmetatarsal on his left side we would recommend that a below-knee amputation is most viable option for further treatment. Due to patient's uncontrolled diabetes, vascular changes, sensation changes all increase the risk that a transmetatarsal would fail, also due to this wound location trying to perform appropriate closure would be difficult. I discussed this case at length with Dr. Hernandez and he is agreement to proceed with a below-knee amputation however there needs to be appropriate follow-up care patient is currently not acutely ill or septic however he is very aware of the risk that this could progress and cause possibly catastrophic locations including . Discussed with patient further treatment with IV antibiotics may subdue infection for a period time however there is a significant risk that some sort of surgical intervention is indicated due to the necrosis and osteomyelitis indicated on x-ray. Patient expressed understanding and states he does not wish to proceed with the surgical intervention and that he would not consent for a below-knee amputation. Patient also states he has no options postoperatively for care. Case management is l ooking to care centers at this time however patient wishes to proceed with possible AMA discharge. Patient understands that this could lead to catastrophic events. He is very aware and wishes to discuss possible treatment options with his family. Discussed with patient that I would recommend discussing treatment options and possible postoperative care with them. He expressed understanding agreed to this at this time. - Problems/Diagnosis (1) Necrosis Problem: Acute (2) Osteomyelitis of foot Problem: Acute Qualifiers: Laterality: right (3) Gangrenous toe Problem: Acute
--- NOTE | 2019-11-21 16:34 | PN ---
Progess Note - Interim Date: 11/21/19 Time: 16:32 Narrative: 11/21/19 16:32 Have been notified the patient decided to leave AMA. Recommend IV antibiotics possibly through the [facility]. Discussed in detail at approximately 1200 hrs. today the risks of leaving AMA versus below-knee amputation is a surgical intervention. Patient was still adamant he did not wish to proceed with any surgery including a below-knee amputation. He was going to discuss again with his family further treatment. Patient is left AMA he was educated upon the risks and possible complications. He expressed understanding and was medically stable at this time. Would recommend continued IV antibiotics per medicine te am. Can consult orthopedics if patient decides to proceed with possible surgical intervention. Note the patient was educated that surgical intervention would be indicated due to the extent and high risk of complications with his condition.
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
[2019-11-22] MEDS ORDERED: VANCOMYCIN HCL LEVEL XX ONE (13:45)
== END 2019-11-21 14:02 | disposition left against medical advice (07) | DRG 638 ==
LOC: ER 13:16 → MS 16:03
PROVIDERS: ADMIT Internal Medicine; ATTEND Internal Medicine
DX: I96 Gangrene, not elsewhere classified; Z91.14 Patient's other noncompliance with medication regimen; Z95.0 Presence of cardiac pacemaker; F17.210 Nicotine dependence, cigarettes, uncomplicated; I35.0 Nonrheumatic aortic (valve) stenosis; Z22.322 Carrier or suspected carrier of Methicillin resistant Staphylococcus aureus; Z59.0 Homelessness; Z95.5 Presence of coronary angioplasty implant and graft; E11.65 Type 2 diabetes mellitus with hyperglycemia; M86.171 Other acute osteomyelitis, right ankle and foot; I10 Essential (primary) hypertension; F32.9 Major depressive disorder, single episode, unspecified; Z89.512 Acquired absence of left leg below knee; I25.10 Atherosclerotic heart disease of native coronary artery without angina pectoris; E11.69 Type 2 diabetes mellitus with other specified complication; B95.62 Methicillin resistant Staphylococcus aureus infection as the cause of diseases classified elsewhere; L03.031 Cellulitis of right toe
CPT/HCPCS: 36415; 71010; 71045; 73630; 80048; 80053; 80307; 83036; 83605; 85025; 85652; 86140; 87040; 87070; 87077; 87081; 87186; 93005; 94640; 94664; 96365; 96367; 96375; 96376; 99284; 99285; J2405

== ENCOUNTER 2019-11-22 15:58 | Inpatient (IN) ==
--- NOTE | 2019-11-22 17:11 | ERNOTE ---
Lower Extremity HPI - Narrative Date of Service: 11/22/19 - General Lower Extremities Pain: foot: right Time Seen by Provider: 11/22/19 16:53 Source: patient Exam Limitations: no limitations - Immun/Allergies/Home Medications Immunizations: IMMUNIZATION HX Immunizations Up to Date Yes History of Influenza Vaccine No Hx Pneumococcal Vaccination No Allergies/Adverse Reactions: Allergies Allergy/AdvReac Type Severity Reaction Status Date / Time naproxen AdvReac Severe Verified 11/18/19 16:43 topiramate [From Topamax] AdvReac Severe Verified 11/18/19 16:43 acetaminophen [From Tylenol] AdvReac Other Verified 11/18/19 16:43 Home Medications: HOME MEDICATIONS NK 11/22/19 [Last Taken Unknown] - Pain Score Pain Score #1 Pain Score: 9 - History of Present Illness Narrative: The patient is a 54 year old male who presents for right foot pain which has been worse since leaving AMA from hospital yesterday. There are associated symptoms of purulent drainage. The patient reports pain to right foot, 10. There are no alleviating factors. There are aggravating factors of activity and weight bearing. Previous treatments have included: Ibuprofen without improvement. The past medical history includes: DM, COPD, anxiety, depression, polysubstance abuse and hepatitis C. The social history is positive for current tobacco use. The patient has had no ill contacts. Patient states he left AMA yesterday with concern for going through with BKA to right leg, patient upon return agrees to proceeding with previously discussed surgical plan. Patient denies injury since leaving hospital. Review of Systems - Review of Systems Constitutional: Present: chills, diaphoresis, fatigue. Absent: fever EYE: Present: no symptoms reported ENT: Present: no symptoms reported. Absent: ear pain, nasal drainage, sore throat Respiratory: Present: shortness of breath - Chronic without change. Absent: cough Cardiology: Present: no symptoms reported. Absent: chest pain Gastrointestinal/Abdominal: Present: no symptoms reported. Absent: nausea, vomiting, diarrhea, abdominal pain Genitourinary: Present: no symptoms reported. Absent: dysuria Musculoskeletal: Present: joint pain Skin: Present: change in color All Other Systems: All systems neg except as marked Medical History (Last Reviewed 11/22/19 @ 17:04 by AZAEL Mobley) Diabetes mellitus type 2 with complications, uncontrolled (Chronic) COPD (chronic obstructive pulmonary disease) (Chronic) Anxiety and depression (Chronic) Polysubstance abuse (Chronic) Chronic pain with drug dependence (Chronic) Osteomyelitis of foot (Acute) Poorly controlled diabetes mellitus (Chronic) Aortic stenosis (Chronic) Hepatitis C (Chronic) CAD (coronary artery disease) (Chronic) Acute NV (Acute) Anxiety Aortic stenosis Arthritis Lymphoma Surgical History: Surgical History (Last Reviewed 11/22/19 @ 17:04 by AZAEL Mobley) Amputated below knee H/O heart artery stent Pacemaker S/P TAVR (transcatheter aortic valve replacement) Family History: Family History (Last Reviewed 11/22/19 @ 17:04 by AZAEL Mobley) Other No pertinent family history Social History: (Last Reviewed 11/22/19 @ 17:04 by AZAEL Mobley) Tobacco: Smoking Status: Current every day smoker Smoking cigarettes per day: 10 Alcohol: alcohol intake: never Substance Use: substance use type: marijuana, methamphetamine Physical Exam - Physical Exam General Appearance: Present: wd/wn, alert, mild distress Head Exam: Present: normal inspection Eye Exam: Normal inspection: bilateral Neck: Present: normal inspection Respiratory: Present: no respiratory distress, normal breath sounds, no accessory muscle use, lungs clear Cardiovascular/Chest: Present: regular rate, rhythm, no murmur Peripheral Pulses: N=norm/S=strong/W=weak/B=bound/A=absent: Dorsalis-pedis (R): Weak Gastrointestinal/Abdominal: Present: normal bowel sounds, nontender, nondistended, soft, no organomegaly Extremity Exam: Present: normal range of motion - Right ankle, bony tenderness - Right great toe, fourth and fifth with palpation, joint redness - Right great toe over MP joint, other - Distal portion of right great toe is black along with second toe with both areas appearing atrophic Neurological Exam: Present: alert, oriented, normal mood/affect Skin Exam: Present: normal color, warm/dry Progress - Date and Time Seen: Date and Time: 11/22/19 17:21 Case discussed with and agrees to accept patient with plan to proceed with previously discussed BKA. Patient agrees to staying. 11/22/19 17:30 Case discussed with , agrees to admission with plan of surgery with orthopedics. Will restart patient on Vanco and Zosyn as was on previously due to right foot culture positive for MRSA. - Vital Signs Patient's Vital Signs:: I have reviewed the patient's vital signs. Vital Signs: Vital Signs 11/22/19 16:35 Temperature 36.8 C Pulse Rate 90 Respiratory Rate 16 Blood Pressure 166/93 H O2 Sat by Pulse Oximetry 96 - Progress/Reassessment Chief Complaint: Lower Extremity Pain/ Injury Departure Clinical Impression: Gangrene of toe of right foot, MRSA (methicillin resistant staph aureus) culture positive Cellulitis Qualifiers: Site of cellulitis: extremity Site of cellulitis of extremity: lower extremity Laterality: right Qualified Code(s): L03.115 - Cellulitis of right lower limb - Departure Disposition: Still a patient Condition: Stable
[2019-11-22] MEDS ORDERED: VANCOMYCIN/WATER FOR INJ (PEG) 1 GM/200 ML BAG IV ONE (17:28)
[2019-11-22] MEDS ORDERED: PIPERACILLIN SODIUM/TAZOBACTAM 3.375 GM in DEXTROSE 5 % IN WATER 100 ML IV ONE ×2 (17:28)
[2019-11-22] MEDS ORDERED: HYDROcodone/ACETAMINOPHEN 1 EACH TABLET PO ONE (17:30)
[2019-11-22 17:48] LABS: Hematocrit 38.1 % (42.0-52.0); Hemoglobin 12.2 gm/dL (13.5-18.0); Mean Corpuscular Hemoglobin 25.6 pg (27-31); Mean Platelet Volume 9.6 fl (8-11.3); Neutrophil # 5.5 K/mm3 (1.3-6.0); Neutrophil % 77.7 % (42-75.0); Platelet Count 296 K/mm3 (150-450); Red Blood Count 4.76 M/mm3 (4.7-6.0); Red Cell Distribution Width 14.5 % (11.5-14.0)
[2019-11-22 17:57] LABS: Albumin * 2.2 gm/dl (3.4-5.0); Anion Gap 11.3 mmol/L (6.8-13.8); BUN/Creatinine Ratio 23.3 (9.0-21.6); Bilirubin, Total 0.3 mg/dL (0.0-1.1); Calcium * 8.9 mg/dL (7.9-10.9); Carbon Dioxide 28.5 mmol/L (24-32.6); Potassium 3.8 mmol/L (3.4-4.6)
[2019-11-22] MEDS ORDERED: VANCOMYCIN/WATER FOR INJ (PEG) 1.5 GM/300 ML BAG IV ONE (18:00)
[2019-11-22] MEDS ORDERED: MORPHINE 1 MG/ML IV PRN (19:20)
--- NOTE | 2019-11-22 19:22 | HP ---
Chief Complaint - Chief Complaint Date of Service: 11/22/19 Time of Service: 19:21 Chief Complaint: right LE gangrene in the setting of poorly controlled Diabetes Mellitus History of Present Illness: 54 year old male who presents for right foot pain which has been worse since leaving AMA from hospital yesterday. There are associated symptoms of purulent drainage. The patient reports pain to right foot, 9/10. There are no alleviating factors. There are aggravating factors of activity and weight bearing. Previous treatments have included: Ibuprofen without improvement. The past medical history includes: DM, COPD, anxiety, depression, polysubstance abuse and hepatitis C. The social history is positive for current tobacco use. The patient has had no ill contacts. Patient states he left AMA yesterday with concern for going through with BKA to right leg, patient upon return agrees to proceeding with previously discussed surgical plan. Discussed with patient NPO at midnight in preaparation for Right BKA by Dr. Phillip leon, consulted in the ER. Will start fluids at midnight. Discussed will evaluate vascular supply and further evaluation of Left BKA post- op. Zofran and Nausea respectively. Medical History (Last Reviewed 11/22/19 @ 19:18 by Kinjal Campoverde RN) Diabetes mellitus type 2 with complications, uncontrolled (Chronic) COPD (chronic obstructive pulmonary disease) (Chronic) Anxiety and depression (Chronic) Polysubstance abuse (Chronic) Chronic pain with drug dependence (Chronic) Osteomyelitis of foot (Acute) Poorly controlled diabetes mellitus (Chronic) Aortic stenosis (Chronic) Hepatitis C (Chronic) CAD (coronary artery disease) (Chronic) Acute PR (Acute) Anxiety Aortic stenosis Arthritis Lymphoma Surgical History: Surgical History (Last Reviewed 11/22/19 @ 19:18 by Kinjal Campoverde RN) Amputated below knee H/O heart artery stent Pacemaker S/P TAVR (transcatheter aortic valve replacement) Family History: Family History (Last Reviewed 11/22/19 @ 17:04 by AZAEL Mobley) Other No pertinent family history Social History: (Last Reviewed 11/22/19 @ 17:04 by AZAEL Mobley) Tobacco: Smoking Status: Current every day smoker Smoking cigarettes per day: 10 Alcohol: alcohol intake: never Substance Use: substance use type: marijuana, methamphetamine Review Of Systems (GEN) - Review of Systems Generalized/Overall Review: Present: Weakness - BL LE EENTM: Present: No Symptoms Reported Respiratory: Absent: Cough, Shortness of Breath, Orthopnea Cardiac: Absent: Chest Pain, Edema, Palpitations Abdominal: Present: Nausea, Constipation, Other - + Passin gas. Absent: Vomiting Genitourinary: Present: No Symptoms Reported Musculoskeletal: Present: Joint Pain - BL knee and Right ankle Neurological: Present: Parasthesia - BL LE Skin: Present: No Symptoms Reported Endocrine: Present: Intolerance to Cold. Absent: Increased Hunger, Increased Thirst Immunizations: IMMUNIZATION HX Immunizations Up to Date Yes History of Influenza Vaccine No Hx Pneumococcal Vaccination No Allergies/Adverse Reactions: Allergies Allergy/AdvReac Type Severity Reaction Status Date / Time naproxen AdvReac Severe Verified 11/18/19 16:43 topiramate [From Topamax] AdvReac Severe Verified 11/18/19 16:43 acetaminophen [From Tylenol] AdvReac Other Verified 11/18/19 16:43 Exam - Exam Vital Signs: Vital Signs - Last Taken Temp 36.9 C 11/22/19 18:40 Pulse 88 11/22/19 18:40 Resp 18 11/22/19 18:40 BP 171/107 H 11/22/19 18:40 Pulse Ox 98 11/22/19 18:40 Constitutional: Present: Alert, Oriented x3, Cooperative, No distress, Other - dishevelled in appearance ENT Exam: Present: hearing grossly normal Eye Exam: bilateral eye: normal inspection Neck: Present: non-tender, full range of motion Respiratory: Present: lungs clear, normal breath sounds, no respiratory di stress, no accessory muscle use Cardiovascular/Chest: Present: regular rate, rhythm, no edema, no JVD, no murmur Peripheral Pulses: dorsalis-pedis (R): 0, dorsalis-pedis (L): 0 - left BKA, radial (R): 0, radial (L): 0 Abdomen: Present: Normal bowel sounds, soft, nontender, nondistended /Rectal: Present: Exam deferred Extremity: Present: leg pain - RIGHT LE Skin Exam: Present: cool/dry - LEFT STUMP Neurologic: Present: alert, oriented x 3, sensory deficit - BL LE Appearance: Present: disheveled Eye contact: Present: cooperative Thoughts: Present: other - TEARFUL Diagnostic Studies: Abnormal Lab Results 11/22/19 11/22/19 11/22/19 Range/Units 17:25 17:25 17:25 Hgb 12.2 L (13.5-18.0) gm/dL Hct 38.1 L (42.0-52.0) % MCH 25.6 L (27-31) pg RDW 14.5 H (11.5-14.0) % Neutrophils % 77.7 H (42-75.0) % Lymphocytes % 11.1 L (20-51) % Lymphocytes # 0.78 L (1.5-3.5) k/mm3 ESR 97 H (0-10) mm/hr BUN/Creatinine Ratio 23.3 H (9.0-21.6) Random Glucose 332 H D (70-110) mg/dL C-Reactive Prot, Quant 6.0 H (0.0-0.9) mg/dL Albumin 2.2 L (3.4-5.0) gm/dl Laboratory Results WBC 7.0 K/mm3 (4.0-10.5) 11/22/19 17: RBC 4.76 M/mm3 (4.7-6.0) 11/22/19 17:25 Hgb 12.2 gm/dL (13.5-18.0) L 11/22/19 17:25 Hct 38.1 % (42.0-52.0) L 11/22/19 17:25 MCV 80.0 fl (78-100) 11/22/19 17:25 MCH 25.6 pg (27-31) L 11/22/19 17: MCHC 32.0 g/dl (32-36) 11/22/19 17:25 RDW 14.5 % (11.5-14.0) H 11/22/19 17:25 Plt Count 296 K/mm3 (150-450) 11/22/19 17:25 MPV 9.6 fl (8-11.3) 11/22/19 17:25 Immature Gran % (Auto) 0.40 % (0.001-0.429) 11/22/19 17: Immature Gran # (Auto) 0.03 K/mm3 (0.000-0.0310) 11/22/19 17: Neutrophils % 77.7 % (42-75.0) H 11/22/19 17:25 Lymphocytes % 11.1 % (20-51) L 11/22/19 17:25 Monocytes % 8.7 % (0.0-9) 11/22/19 17:25 Eosinophils % 1.4 % (0.0-3.0) 11/22/19 17: Basophils % 0.7 % (0.0-1.0) 11/22/19 17:25 Nucleated RBC % 0.0 k/mm3 (0-1) 11/22/19 17:25 Neutrophils # 5.5 K/mm3 (1.3-6.0) 11/22/19 17:25 Lymphocytes # 0.78 k/mm3 (1.5-3.5) L 11/22/19 17: Monocytes # 0.6 k/mm3 (0.0-1.0) 11/22/19 17: Eosinophils # 0.1 k/mm3 (0.0-0.7) 11/22/19 17: Absolute Basophils 0.1 k/mm3 (0.0-0.1) 11/22/19 17:25 ESR 97 mm/hr (0-10) H 11/22/19 17:25 Sodium 135 mmol/L (132-142) 11/22/19 17:25 Plasma Sodium 139 mmol/L (130-142) 11/22/19 17:25 Potassium 3.8 mmol/L (3.4-4.6) 11/22/19 17:25 Chloride 99 mmol/L (97-106) 11/22/19 17:25 Carbon Dioxide 28.5 mmol/L (24-32.6) 11/22/19 17:25 Anion Gap 11.3 mmol/L (6.8-13.8) 11/22/19 17:25 BUN 17 mg/dL (6-23) 11/22/19 17:25 Creatinine 0.73 mg/dL (0.4-1.4) 11/22/19 17:25 Est GFR (Non-Af Amer) 119 mL/min (60-130) 11/22/19 17:25 BUN/Creatinine Ratio 23.3 (9.0-21.6) H 11/22/19 17:25 Random Glucose 332 mg/dL (70-110) H D 11/22/19 17:25 Calcium 8.9 mg/dL (7.9-10.9) 11/22/19 17:25 Calcium Adj for Albumin 10.0 mg/dL (8.4-10.2) 11/22/19 17:25 Total Bilirubin 0.3 mg/dL (0.0-1.1) 11/22/19 17:25 AST 20 U/L (0-48) 11/22/19 17:25 ALT 28 U/L (19-67) 11/22/19 17:25 Alkaline Phosphatase 120 U/L (50-170) 11/22/19 17:25 C-Reactive Prot, Quant 6.0 mg/dL (0.0-0.9) H 11/22/19 17:25 Total Protein 7.0 gm/dL (6.2-8.2) 11/22/19 17:25 Albumin 2.2 gm/dl (3.4-5.0) L 11/22/19 17:25 Assessment/Plan - Narrative Narrative: 54 y/o admitted for possible Right BKA in the morning. - Dr. Hernandez Consulted, appreciate recommendations. - Currently on Vancomycin pre-op - Zofran and Morphine PRN for nausea and pain management respectively. - NPO after midnight - Start NS mIVFS @ 75 ml/hr due to h/o CHF - PT consult s/p surgery - Tight glycemic control s/p surgery - Resume Lovenox 12 hrs S/P Surgery. Disposition: Evaluate in AM, anticipate Surgery in AM - Assessment/Plan (1) Atherosclerosis of right lower extremity with gangrene Problem: Acute (2) Pacemaker Problem: Chronic (3) MRSA (methicillin resistant staph aureus) culture positive Problem: Acute (4) COPD (chronic obstructive pulmonary disease) Problem: Chronic Qualifiers: COPD type: chronic bronchitis Chronic bronchitis type: unspecified Qualified Code(s): J42 - Unspecified chronic bronchitis (5) Anxiety and depression Problem: Chronic (6) Polysubstance abuse Problem: Chronic (7) Chronic pain with drug dependence Problem: Chronic (8) Osteomyelitis of foot Problem: Acute Qualifiers: Laterality: right (9) Poorly controlled diabetes mellitus Problem: Chronic (10) CAD (coronary artery disease) Problem: Chronic
[2019-11-22] MEDS ORDERED: NORMAL SALINE 1,000 ML IV PRN (19:33)
[2019-11-22] MEDS: ONDANSETRON HCL/PF 2 MG/ML VIAL IV PRN (20:29)
[2019-11-22] MEDS ORDERED: MORPHINE SULFATE 4 MG/ML SYRG IV SCH (20:30)
[2019-11-22] MEDS: MORPHINE SULFATE 4 MG/ML SYRG IV PRN (21:18)
[2019-11-23] MEDS: MORPHINE SULFATE 4 MG/ML SYRG IV PRN (03:20)
[2019-11-23] MEDS ORDERED: NORMAL SALINE 1,000 ML IV ONE (07:49)
[2019-11-23 07:56] LABS: Hematocrit 36.1 % (42.0-52.0); Hemoglobin 11.6 gm/dL (13.5-18.0); Mean Cell Volume 80.4 fl (78-100); Mean Corpuscular Hemoglobin 25.8 pg (27-31); Mean Corpuscular Hgb Conc 32.1 g/dl (32-36); Mean Platelet Volume 9.6 fl (8-11.3); Neutrophil # 6.2 K/mm3 (1.3-6.0); Platelet Count 259 K/mm3 (150-450); Red Blood Count 4.49 M/mm3 (4.7-6.0); Red Cell Distribution Width 14.5 % (11.5-14.0); White Blood Count 8.2 K/mm3 (4.0-10.5)
--- NOTE | 2019-11-23 07:58 | PN ---
Subjective - Date and Time Seen Date: 11/23/19 Time: 07:52 Subjective Narrative: No acute events overnight. Patient is stable. Complaining of pain in his extremities controlled by morphine but states it wears off quickly. Nausea resolved with Zofran at baseline. Discussed possible surgery will await to hear from cardiovascualr. Objective - Review of Systems Generalized/Overall Review: Denies: Weakness, Chills, Fever EENTM: Reports: No Symptoms Reported Respiratory: Denies: Cough, Shortness of Breath, Orthopnea, Stridor, Wheezing Cardiac: Denies: Chest Pain, Edema Abdominal: Denies: Nausea, Vomiting, Abdominal Pain Genitourinary Symptoms: Reports: No Symptoms Reported Musculoskeletal Complaints: Reports: Joint Pain - Left BKA and Rt LE Neurological: Reports: Weakness - Of LE Skin: Reports: No Symptoms Reported Endocrine: Reports: No Symptoms Reported - Vitals Vitals: Last Vital Signs Temp 36.4 C 11/23/19 07:12 Pulse 99 11/23/19 07:12 Resp 18 11/23/19 07:12 BP 90/56 11/23/19 07:12 Pulse Ox 93 11/23/19 07:12 - Abnormal Lab Findings Abnormal Lab Findings: Abnormal Lab Results 11/22/19 11/22/19 11/22/19 Range/Units 17:25 17:25 17:25 Hgb 12.2 L (13.5-18.0) gm/dL Hct 38.1 L (42.0-52.0) % MCH 25.6 L (27-31) pg RDW 14.5 H (11.5-14.0) % Neutrophils % 77.7 H (42-75.0) % Lymphocytes % 11.1 L (20-51) % Lymphocytes # 0.78 L (1.5-3.5) k/mm3 ESR 97 H (0-10) mm/hr BUN/Creatinine Ratio 23.3 H (9.0-21.6) Random Glucose 332 H D (70-110) mg/dL C-Reactive Prot, Quant 6.0 H (0.0-0.9) mg/dL Albumin 2.2 L (3.4-5.0) gm/dl - EKG/Xray Findings EKG: NSR EKG read: Interp. by me - NSR Possible left atrial enlargement Abnormal ECG XRAY: chest Interpretation: Reviewed by me - Hyperinflation of th elungs, with prominent pulmonary vasculature and flattening of the diaphram - Exam Constitutional: Present: Alert, Oriented x3, Cooperative ENT Exam: Present: hearing grossly normal Neck: Present: full range of motion, supple Breasts: Present: Exam deferred Respiratory: Present: wheezing, expiration (prolonged) Cardiovascular/Chest: Present: regular rate, rhythm, no edema, no murmur - STEVE BORDER, systolic murmur. Absent: normal peripheral pulses - no peripheral pulses palpated on either extremities Abdomen: Present: Normal bowel sounds, soft, nontender, nondistended /Rectal: Present: Exam deferred Extremity: Present: normal range of motion, leg pain - LEFT BKA STUMP RIGHT GANGRENOUS FOOT Skin Exam: Present: other - GANAGRENE OF RIGHT GREAT AND MIDDLE TOE GRANGENE/NECROSIS OF THE MEDIAL ASPECT OF THE RIGHT FOOT Neurologic: Present: alert, oriented x 3, motor weakness, sensory deficit - OF BLLE Appearance: Present: disheveled Eye contact: Present: other - TEARFUL Thoughts: Present: normal thought pattern Assessment/Plan Plan Narrative: - Continue Vancomycin 1 gm Q24H. - NPO at midnight and start mIVFs @ 75ml/hr - Cleared for surgery in AM Disposition: Will continue to monitor - Problems/Diagnosis (1) Atherosclerosis of right lower extremity with gangrene Problem: Acute Qualifiers: Peripheral atherosclerosis artery type: [place] artery Qualified Code(s): I70.261 - Atherosclerosis of [place] arteries of extremities with gangrene, right leg (2) Osteomyelitis of foot Problem: Resolved Qualifiers: Osteomyelitis type: other acute Laterality: right Qualified Code(s): M86.171 - Other acute osteomyelitis, right ankle and foot (3) MRSA (methicillin resistant staph aureus) culture positive Problem: Acute (4) Pacemaker Problem: Chronic (5) COPD (chronic obstructive pulmonary disease) Problem: Chronic Qualifiers: COPD type: chronic bronchitis Chronic bronchitis type: unspecified Qualified Code(s): J42 - Unspecified chronic bronchitis (6) Anxiety and depression Problem: Chronic (7) Polysubstance abuse Problem: Chronic (8) Chronic pain with drug dependence Problem: Chronic (9) Poorly controlled diabetes mellitus Problem: Chronic (10) CAD (coronary artery disease) Problem: Chronic Qualifiers: Coronary Disease-Associated Artery/Lesion type: [place] artery [place] vs. transplanted heart: [place] heart Associated angina: without angina Qualified Code(s): I25.10 - Atherosclerotic heart disease of [place] coronary artery without angina pectoris
[2019-11-23] MEDS: NORMAL SALINE 1,000 ML IV SCH ×3 (08:16→23:48)
[2019-11-23 08:23] LABS: Albumin * 2.1 gm/dl (3.4-5.0); Anion Gap 11.8 mmol/L (6.8-13.8); BUN/Creatinine Ratio 24.3 (9.0-21.6); Bilirubin, Total 0.3 mg/dL (0.0-1.1); Ca. Corrected For Albumin 9.8 mg/dL (8.4-10.2); Calcium * 8.6 mg/dL (7.9-10.9); Carbon Dioxide 28.2 mmol/L (24-32.6); Total Protein 6.7 gm/dL (6.2-8.2)
[2019-11-23] MEDS: VANCOMYCIN/WATER FOR INJ (PEG) 2 GM/400 ML BAG IV SCH ×2 (09:16→20:38)
[2019-11-23] MEDS: MORPHINE SULFATE 2 MG/ML DISP.SYRIN IV PRN ×4 (09:32→23:37)
[2019-11-23] MEDS: INSULIN LISPRO 100 UNITS/ML VIAL SC SCH ×3 (11:23→20:18)
[2019-11-23] MEDS: ALBUTEROL SULFATE/IPRATROPIUM 3 ML NEBU IH SCH ×4 (13:31→22:29)
[2019-11-23] MEDS: CARVEDILOL 3.125 MG TABLET PO SCH ×2 (13:35→20:21)
[2019-11-23] MEDS: PIPERACILLIN SODIUM/TAZOBACTAM 3.375 GM in DEXTROSE 5 % IN WATER 100 ML IV SCH ×4 (13:35→20:12)
[2019-11-23] MEDS: LISINOPRIL 20 MG TABLET PO SCH (13:35)
--- NOTE | 2019-11-23 15:21 | CONS ---
- Reason for consultation (1) Gangrenous toe Date of Service: 11/23/19 (2) Osteomyelitis of foot Date of Service: 11/23/19 HPI - General Date of Service: 11/23/19 Narrative: Patient returns after leaving AMA for right lower extremity infection. Note patient has past medical history of uncontrolled diabetes, significant infection of his left lower extremity with previous BKA, infection ongoing over the past few weeks of his right lower extremity, osteomyelitis per x-ray findings, other chronic medical conditions social situation includes the patient is homeless. Patient notes his pain is continue to worsen he is bound to a wheelchair due to his previous BKA he does not have a prosthesis. Patient notes his pain is constant, nothing seems to significantly improve it. He notes he is a previous drug user he notes he is not currently been using any illicit drugs. Patient note he is unable to bear weight due to significant pain. Source: patient - History of Present Illness Allergies/Adverse Reactions: Allergies naproxen Adverse Reaction (Severe, Verified 11/18/19 16:43) Difficulty breathing topiramate [From Topamax] Adverse Reaction (Severe, Verified 11/18/19 16:43) Tachycardia acetaminophen [From Tylenol] Adverse Reaction (Verified 11/18/19 16:43) Other upset stomach, d/t cirrosis Home Medications: Home Medications Medication Instructions Recorded Last Taken NK 11/22/19 Unknown Procedures Application of splint (06/16/04) Drainage of Right Lower Arm Skin, External Approach (01/29/16) Medications - Medications Current Medications: Current Medications Albuterol/Ipratropium (Duoneb 2.5-0.5mg/3ml Soln) 3 ml IH Q4HRT DAILY Stop: 12/23/19 12:01 Last Admin: 11/23/19 13:31 Dose: 3 ml Documented by: Carvedilol (Coreg) 3.125 mg PO BID DAILY Stop: 12/23/19 12:01 Last Admin: 11/23/19 13:35 Dose: 3.125 mg Documented by: VANCOMYCIN/WATER FOR INJ (PEG) (Vancomycin) 2 gm in 400 mls @ 75 mls/hr IV Q12H DAILY Stop: 12/23/19 09:01 Last Infusion: 11/23/19 15:19 Dose: Infused Documented by: Piperacillin Sod/Tazobactam (Sod 3.375 gm/ Dextrose/Water) 100 mls @ 25 mls/hr IV Q8H [facility] Stop: 12/23/19 12:31 Last Admin: 11/23/19 13:35 Dose: 25 mls/hr Documented by: Insulin Human Lispro (Humalog) 0 units SC ACHSINS [facility]; Protocol Stop: 12/23/19 12:01 Last Admin: 11/23/19 11:23 Dose: 10 units Documented by: Lisinopril (Zestril) 20 mg PO DAILY [facility] Stop: 12/23/19 12:01 Last Admin: 11/23/19 13:35 Dose: 20 mg Documented by: Morphine Sulfate (Morphine Sulfate) 1 mg IV Q6H PRN PRN Reason: Pain Stop: 12/22/19 20:31 Last Admin: 11/23/19 09:32 Dose: 1 mg Documented by: Ondansetron HCl (Zofran) 4 mg IV Q6H PRN PRN Reason: Nausea And Vomiting Stop: 12/22/19 19:20 Last Admin: 11/22/19 20:29 Dose: 4 mg Documented by: Physical Examination - Exam Vital Signs: Vital Signs - Last Taken Temp 36.8 C 11/23/19 15:10 Pulse 96 11/23/19 15:10 Resp 20 11/23/19 15:10 BP 161/96 H 11/23/19 15:10 Pulse Ox 98 11/23/19 15:10 O2 Oxygen Delivery Method Room Air Constitutional: Present: Alert, Cooperative, No distress Extremity: Present: other - LLE--> BKA RLE--> dry gangrene over the great and second toes, diffuse erythema, wound over the medial midfoot, diminished sensation diffusely through right lower extremity, delayed capillary refill, limited range of motion as well as strength due to pain, diffuse tenderness about right foot - Results and Findings: Lab/Microbiology results last 24 hrs: Abnormal/Pending Laboratory Last 24 HRS 11/23/19 11/23/19 11/22/19 07:35 07:35 17:25 RBC 4.49 L Hgb 11.6 L Hct 36.1 L MCH 25.8 L RDW 14.5 H Immature Gran % (Auto) 0.50 H Immature Gran # (Auto) 0.04 H Neutrophils % 76.0 H Lymphocytes % 11.1 L Monocytes % 9.3 H Neutrophils # 6.2 H Lymphocytes # 0.91 L ESR 97 H BUN/Creatinine Ratio 24.3 H Random Glucose 266 H C-Reactive Prot, Quant Albumin 2.1 L 11/22/19 11/22/19 17:25 17:25 RBC Hgb 12.2 L Hct 38.1 L MCH 25.6 L RDW 14.5 H Immature Gran % (Auto) Immature Gran # (Auto) Neutrophils % 77.7 H Lymphocytes % 11.1 L Monocytes % Neutrophils # Lymphocytes # 0.78 L ESR BUN/Creatinine Ratio 23.3 H Random Glucose 332 H D C-Reactive Prot, Quant 6.0 H Albumin 2.2 L Culture 11/22/19 19:47 - Final Nares MRSA Positive - Assessments/Findings (1) Gangrenous toe Problem: Acute (2) Osteomyelitis of foot Problem: Acute Qualifiers: Osteomyelitis type: other acute Laterality: right Qualified Code(s): M86.171 - Other acute osteomyelitis, right ankle and foot Plan - Plan Plan: -54 y/o male return to the ER after leaving AMA for right lower extremity infection, uncontrolled diabetes, osteomyelitis, gangrene of right foot. Patient was began on IV antibiotics appropriate cultures were taken patient decided to leave AMA due to significant pain and he did not wish to proceed with surgical intervention. Discussed with patient due to comorbidities and current exam we would recommend a below-knee amputation. At this previous admission patient did not wish to proceed with a below-knee amputation and stated he would rather just go home so he left AMA. Patient presents today saying he understands that a below-knee amputation is appropriate treatment, consent was obtained all questions were answered. Patient notes he is having significant pain, will discuss with medical physician possible altering of pain medicine. Patient will undergo right below-knee amputation, discussed with patient that we highly advised he cannot leave AMA due to significant risk of complications and further continued difficulty in managing this infection. Patient expressed understanding states he will not leave AMA at this time. Surgical date planned for 11/24/2019, note patient is clinically stable currently and is on IV antibiotics. We will continue vancomycin and Zosyn until postoperative treatment. Have discussed with case management to work towards a goal for a safe place to continue with postoperative care. Patient at this time expressed understanding discussed risk versus benefits including continued infection, phantom pain, bleeding, nerve pain, cardiac and stroke risk, inherent risk of surgery, complications with below-knee amputation. Patient expressed understanding agreed all the still wishes to proceed with below-knee amputation and consent was obtained. Follow-up with the patient prior to surgery on 11/24/2019, if any acute changes occur in patient's medical status tonight would proceed with a emergent below-knee amputation if indicated.
[2019-11-23] MEDS: BUDESONIDE 0.25 MG/2 ML VIAL.NEB IH SCH (18:53)
[2019-11-23] MEDS: FORMOTEROL FUMARATE 20 MCG/2 ML VIAL IH SCH (18:53)
[2019-11-23] MEDS: INSULIN GLARGINE,HUM.REC.ANLOG 100 UNITS/ML VIAL SC SCH (20:19)
[2019-11-23] MEDS: ONDANSETRON HCL/PF 2 MG/ML VIAL IV PRN (20:32)
[2019-11-24] MEDS: ALBUTEROL SULFATE/IPRATROPIUM 3 ML NEBU IH SCH ×6 (02:50→22:13)
[2019-11-24] MEDS: ONDANSETRON HCL/PF 2 MG/ML VIAL IV PRN (03:38)
[2019-11-24] MEDS: MORPHINE SULFATE 2 MG/ML DISP.SYRIN IV PRN ×2 (03:42→08:22)
[2019-11-24] MEDS: PIPERACILLIN SODIUM/TAZOBACTAM 3.375 GM in DEXTROSE 5 % IN WATER 100 ML IV SCH ×4 (04:15→12:35)
[2019-11-24] MEDS: FORMOTEROL FUMARATE 20 MCG/2 ML VIAL IH SCH ×2 (06:33→18:55)
[2019-11-24] MEDS: BUDESONIDE 0.25 MG/2 ML VIAL.NEB IH SCH ×2 (06:33→18:55)
[2019-11-24] MEDS: NORMAL SALINE 1,000 ML IV SCH ×3 (07:29→15:31)
[2019-11-24] MEDS: INSULIN LISPRO 100 UNITS/ML VIAL SC SCH ×4 (07:32→18:23)
[2019-11-24] MEDS: VANCOMYCIN/WATER FOR INJ (PEG) 2 GM/400 ML BAG IV SCH ×2 (08:22→21:52)
[2019-11-24] MEDS: CARVEDILOL 3.125 MG TABLET PO SCH ×2 (09:11→21:50)
[2019-11-24] MEDS: LISINOPRIL 20 MG TABLET PO SCH (09:11)
[2019-11-24] MEDS: INSULIN GLARGINE,HUM.REC.ANLOG 100 UNITS/ML VIAL SC SCH ×2 (09:12→21:55)
--- NOTE | 2019-11-24 11:18 | ANES ---
Anesthesia Pre Procedure Eval Vitals/Labs: Last Vital Signs Temp 36.6 C 11/24/19 09:47 Pulse 93 11/24/19 09:47 Resp 16 11/24/19 09:47 BP 157/97 H 11/24/19 09:47 Pulse Ox 95 11/24/19 09:47 HOME MEDICATIONS NK 11/22/19 [Last Taken Unknown] Allergies/Adverse Reactions: Allergies Allergy/AdvReac Type Severity Reaction Status Date / Time naproxen AdvReac Severe Verified 11/18/19 16:43 topiramate [From Topamax] AdvReac Severe Verified 11/18/19 16:43 acetaminophen [From Tylenol] AdvReac Other Verified 11/18/19 16:43 - Planned Procedure Planned Procedure: Cellulitis,Right foot wound MRSA,Gangrene toe Medication List Reviewed:: Yes Allergies Verified: Yes Medical History (Last Reviewed 11/24/19 @ 11:16 by Fernando Yanez CRNA) Diabetes mellitus type 2 with complications, uncontrolled (Chronic) COPD (chronic obstructive pulmonary disease) (Chronic) Anxiety and depression (Chronic) Polysubstance abuse (Chronic) Chronic pain with drug dependence (Chronic) Osteomyelitis of foot (Acute) Poorly controlled diabetes mellitus (Chronic) Aortic stenosis (Chronic) Hepatitis C (Chronic) CAD (coronary artery disease) (Chronic) Acute AL (Acute) Anxiety Aortic stenosis Arthritis Lymphoma Surgical History (Last Reviewed 11/24/19 @ 11:16 by Fernando Yanez CRNA) Amputated below knee H/O heart artery stent Pacemaker S/P TAVR (transcatheter aortic valve replacement) Family History (Last Reviewed 11/24/19 @ 11:17 by Fernando Yanez CRNA) Other No pertinent family history - Family Anesthesia History Family History:: no untoward family reactions to anesthesia - Airway/Neck/Teeth Denture Type: Full upper, Full lower Neck Exam: full range of motion Mallampatti Score: 1 Thyromental (T-M) distance: > 6 cm Mandibulo Hyoid distance: > 3 cm - Respiratory Respiratory History: COPD Respiratory Physical: decreased breath sounds Smoking Status: Current every day smoker Discussed smoking cessation including day of surgery: Yes Sleep Apnea currently treated: No Sleep Apnea by current assessment: No - Cardiovascular Cardiac History: AL, CAD, valvular heart disease Tolerate Activity: Poor Heart Sounds: S1 & S2, Regular - Gastrointestinal NPO since: MN - Anesthesia Assessment and Plan ASA Class: PS, III Anesthesia Type Plan: Spinal Planned difficult intubation/equipment available: No
[2019-11-24] MEDS ORDERED: BUPIVACAINE HCL 50 ML VIAL IJ ONE (11:58)
[2019-11-24] MEDS ORDERED: MIDAZOLAM HCL/PF 5 MG/ML VIAL ONE (12:11)
[2019-11-24] MEDS ORDERED: LIDOCAINE HCL 50 ML VIAL ONE ×2 (12:12→12:29)
[2019-11-24] MEDS ORDERED: EPINEPHrine 1 MG/ML AMPUL ONE (12:12)
[2019-11-24] MEDS ORDERED: PROPOFOL VIAL IV ONE (12:12)
--- NOTE | 2019-11-24 13:27 | PN ---
Subjective - Date and Time Seen Date: 11/24/19 Time: 07:30 Subjective Narrative: No acute events overnight. Patient is complaining of pain of Right LE. No F/C. No SOB. No CP. Objective - Review of Systems Generalized/Overall Review: Reports: Weakness. Denies: Chills, Fever EENTM: Reports: No Symptoms Reported Respiratory: Denies: Cough, Shortness of Breath, Orthopnea Cardiac: Denies: Chest Pain, Edema, Palpitations Abdominal: Denies: Nausea, Vomiting, Abdominal Pain Genitourinary Symptoms: Reports: No Symptoms Reported Musculoskeletal Complaints: Reports: Joint Pain - left bka right ankle Neurological: Reports: Weakness - BL LE Skin: Reports: Dryness Endocrine: Reports: No Symptoms Reported - Vitals Vitals: Last Vital Signs Temp 36.6 C 11/24/19 09:47 Pulse 93 11/24/19 09:47 Resp 16 11/24/19 09:47 BP 157/97 H 11/24/19 09:47 Pulse Ox 95 11/24/19 09:47 - EKG/Xray Findings EKG: NSR EKG read: Interp. by me - NSR POSSIBLE LEFT ATRIAL ENLARGEMENT XRAY: chest Interpretation: Reviewed by me - No acute cardiopulmonary process - Exam Constitutional: Present: Alert, Oriented x3, Cooperative ENT Exam: Present: hearing grossly normal Neck: Present: non-tender, full range of motion, supple Respiratory: Present: lungs clear, normal breath sounds, no accessory muscle use Cardiovascular/Chest: Present: regular rate, rhythm, other - no palpable pulses Abdomen: Present: Normal bowel sounds, soft, nontender, nondistended /Rectal: Present: Exam deferred Extremity: Present: normal range of motion, non-tender, no pedal edema, other - left BKA Gangrene of the Right first and second great toe Gangrene of medial aspect of right foot Skin Exam: Present: normal color, warm/dry Neurologic: Present: alert, oriented x 3 Appearance: Present: disheveled Eye contact: Present: cooperative, good eye contact Assessment/Plan Plan Narrative: Patient has been NPO since midnight in preparation for surgery mIVFs @ 75 ml/hr since midnight Gentle hydration post-op due to poor heart function Resume Lovenox 12 hours post surgery Start scheduled aspart 15 units TID with HDSS and Glargine 20 units BID for tight glycemic control Better BP control after surgery Resume Consistent Carb diet Discuss with case management in regards to placement upon discharge since he is homeless Disposition: Evaluate post-op Follow up on PT and ortho recommendations - Problems/Diagnosis (1) Atherosclerosis of right lower extremity with gangrene Problem: Acute Qualifiers: Peripheral atherosclerosis artery type: [place] artery Qualified Code(s): I70.261 - Atherosclerosis of [place] arteries of extremities with gangrene, right leg (2) Osteomyelitis of foot Problem: Acute Qualifiers: Osteomyelitis type: other acute Laterality: right Qualified Code(s): M86.171 - Other acute osteomyelitis, right ankle and foot (3) MRSA (methicillin resistant staph aureus) culture positive Problem: Acute (4) Pacemaker Problem: Chronic (5) COPD (chronic obstructive pulmonary disease) Problem: Chronic Qualifiers: COPD type: chronic bronchitis Chronic bronchitis type: unspecified Qualified Code(s): J42 - Unspecified chronic bronchitis (6) Anxiety and depression Problem: Chronic (7) Polysubstance abuse Problem: Chronic (8) Chronic pain with drug dependence Problem: Chronic (9) Poorly controlled diabetes mellitus Problem: Chronic (10) CAD (coronary artery disease) Problem: Chronic Qualifiers: Coronary Disease-Associated Artery/Lesion type: [place] artery [place] vs. transplanted heart: [place] heart Associated angina: without angina Qualified Code(s): I25.10 - Atherosclerotic heart disease of [place] coronary artery without angina pectoris
[2019-11-24] MEDS ORDERED: LIDOCAINE HCL 50 ML VIAL IJ ONE (14:33)
--- NOTE | 2019-11-24 15:02 | ANES ---
Post Anesthesia Discharge - Transfer of Care Transfer of Care handoff given to nurse: Yes - Discharge from PACU Discharge from PACU when meets criteria: Yes - In or as PACU, alert
[2019-11-24] MEDS ORDERED: oxyCODONE HCL 5 MG TABLET PO PRN (15:20)
[2019-11-24] MEDS ORDERED: MAG HYDROX/ALUMINUM HYD/SIMETH 30 ML UDC PO PRN (15:20)
[2019-11-24] MEDS ORDERED: MAGNESIUM HYDROXIDE 30 ML UDC PO PRN (15:20)
[2019-11-24] MEDS ORDERED: diphenhydrAMINE HCL 50 MG/ML VIAL IV PRN (15:20)
[2019-11-24] MEDS ORDERED: ONDANSETRON HCL/PF 2 MG/ML VIAL IV PRN (15:20)
[2019-11-24] MEDS ORDERED: ZOLPIDEM TARTRATE 5 MG TABLET PO PRN (15:20)
[2019-11-24] MEDS ORDERED: MORPHINE SULFATE 2 MG/ML DISP.SYRIN IV PRN (15:20)
[2019-11-24] MEDS ORDERED: oxyCODONE HCL 5 MG TABLET PO SCH (15:45)
--- NOTE | 2019-11-24 16:59 | PN ---
Progess Note - Interim Date: 11/24/19 Time: 16:57 Narrative: 11/24/19 16:57 Patient is A0X3 s/p surgery. Asking for food. States pain is well controlled. Right BKA completed and bandages C/D/I. Resume Consistent Carb diet Resume Insulin. Tight glycemic control post-op. Reduce mIVFs to 75 ml/hr due to his h/o CHF. Resume Lovenox 12 hours post surgery. Disposition: Will evaluate patient in AM Will await recommendations from Ortho, PT/OT
--- NOTE | 2019-11-24 17:15 | ANES ---
Post Anesthesia Assessment - Vital Signs Vitals: Last Vital Signs Temp 36.6 C 11/24/19 15:19 Pulse 76 11/24/19 15:19 Resp 16 11/24/19 15:19 BP 131/78 11/24/19 15:19 Pulse Ox 96 11/24/19 15:19 Airway Patency: Normal - Mental Status Level Of Consciousness: Awake, Alert, Appropriate - Pain Level Pain Score: 0 - N/V Assessment Nausea/Vomiting Presence: None Dehydration:: No
[2019-11-24] MEDS ORDERED: DEXTROSE 4 GM/TAB BTL PO PRN (17:58)
[2019-11-24] MEDS ORDERED: DEXTROSE 50%-WATER 50 ML SYRG IV PRN (18:01)
[2019-11-24] MEDS ORDERED: MORPHINE SULFATE 2 MG/ML DISP.SYRIN IV STA (19:32)
[2019-11-24] MEDS ORDERED: LORazepam 2 MG/ML DISP.SYRIN IV STA (20:21)
[2019-11-24] MEDS ORDERED: LORazepam 2 MG/ML DISP.SYRIN ONE (20:27)
[2019-11-24] MEDS ORDERED: INSULIN LISPRO 100 UNITS/ML VIAL SC SCH (21:00)
[2019-11-24] MEDS ORDERED: INSULIN ASPART 100 UNITS/ML VIAL SC SCH (21:00)
[2019-11-24] MEDS ORDERED: INSULIN GLARGINE,HUM.REC.ANLOG 100 UNITS/ML VIAL SC SCH (21:00)
[2019-11-24] MEDS: SENNOSIDES/DOCUSATE SODIUM 1 TAB TABLET PO SCH (21:51)
[2019-11-24] MEDS: HYDROmorphone HCL 1 MG/ML DISP.SYRIN IV PRN (23:12)
[2019-11-25] MEDS: oxyCODONE HCL 5 MG TABLET PO PRN ×5 (00:33→19:44)
[2019-11-25] MEDS: ALBUTEROL SULFATE/IPRATROPIUM 3 ML NEBU IH SCH ×6 (02:13→22:40)
[2019-11-25] MEDS: HYDROmorphone HCL 1 MG/ML DISP.SYRIN IV PRN ×5 (03:22→22:36)
[2019-11-25] MEDS ORDERED: IBUPROFEN 800 MG TABLET PO STA (03:51)
[2019-11-25] MEDS: NORMAL SALINE 1,000 ML IV SCH (04:00)
[2019-11-25] MEDS ORDERED: CARVEDILOL 6.25 MG TABLET ONE ×2 (06:19→06:20)
[2019-11-25] MEDS ORDERED: LISINOPRIL 20 MG TABLET PO SCH (06:30)
[2019-11-25 06:32] LABS: Hematocrit 33.3 % (42.0-52.0); Hemoglobin 10.6 gm/dL (13.5-18.0); Mean Cell Volume 80.8 fl (78-100); Mean Corpuscular Hemoglobin 25.7 pg (27-31); Mean Corpuscular Hgb Conc 31.8 g/dl (32-36); Mean Platelet Volume 9.2 fl (8-11.3); Neutrophil # 8.7 K/mm3 (1.3-6.0); Neutrophil % 79.1 % (42-75.0); Platelet Count 287 K/mm3 (150-450); Red Blood Count 4.12 M/mm3 (4.7-6.0); Red Cell Distribution Width 14.5 % (11.5-14.0)
[2019-11-25] MEDS: LISINOPRIL 40 MG TABLET PO SCH (06:37)
[2019-11-25] MEDS: CARVEDILOL 12.5 MG TABLET PO SCH ×2 (06:37→21:54)
[2019-11-25 06:39] LABS: Albumin * 2.2 gm/dl (3.4-5.0); Anion Gap 13.8 mmol/L (6.8-13.8); BUN/Creatinine Ratio 23.1 (9.0-21.6); Bilirubin, Total 0.4 mg/dL (0.0-1.1); Ca. Corrected For Albumin 9.4 mg/dL (8.4-10.2); Calcium * 8.3 mg/dL (7.9-10.9); Carbon Dioxide 23.9 mmol/L (24-32.6); Potassium 3.7 mmol/L (3.4-4.6); Total Protein 6.8 gm/dL (6.2-8.2)
[2019-11-25] MEDS: BUDESONIDE 0.25 MG/2 ML VIAL.NEB IH SCH ×2 (07:00→20:16)
[2019-11-25] MEDS ORDERED: INSULIN LISPRO 100 UNITS/ML VIAL SC SCH (07:00)
[2019-11-25] MEDS: FORMOTEROL FUMARATE 20 MCG/2 ML VIAL IH SCH ×2 (07:01→20:17)
[2019-11-25] MEDS: INSULIN LISPRO 100 UNITS/ML VIAL SC SCH ×8 (08:01→21:53)
[2019-11-25] MEDS ORDERED: ENOXAPARIN SODIUM 40 MG/0.4 ML SYRG SC SCH (08:30)
[2019-11-25] MEDS: VANCOMYCIN/WATER FOR INJ (PEG) 2 GM/400 ML BAG IV SCH (09:00)
[2019-11-25] MEDS: INSULIN GLARGINE,HUM.REC.ANLOG 100 UNITS/ML VIAL SC SCH ×2 (09:00→21:53)
[2019-11-25] MEDS: ASPIRIN 325 MG TABLET.DR PO SCH (09:04)
--- NOTE | 2019-11-25 09:52 | PN ---
Subjective - Date and Time Seen Date: 11/25/19 Time: 08:00 Subjective Narrative: No acute events overnight. Complaining of pain and medication adjusted overnight by ortho. + flatus. +intake and UOP. No F/C. No SOB or CP. Objective - Review of Systems Generalized/Overall Review: Reports: Weakness. Denies: Chills, Fever EENTM: Reports: No Symptoms Reported Respiratory: Denies: Cough, Shortness of Breath Cardiac: Denies: Chest Pain, Edema Abdominal: Denies: Nausea, Vomiting, Abdominal Pain Genitourinary Symptoms: Reports: No Symptoms Reported Musculoskeletal Complaints: Reports: Joint Pain - right BKA Neurological: Reports: Weakness Skin: Denies: Dryness Endocrine: Denies: Increased Hunger, Increased Thirst - Vitals Vitals: Last Vital Signs Temp 37.5 C 11/25/19 05:30 Pulse 108 H 11/25/19 06:37 Resp 20 11/25/19 05:30 BP 158/79 H 11/25/19 08:07 Pulse Ox 94 11/25/19 05:30 - Abnormal Lab Findings Abnormal Lab Findings: Abnormal Lab Results 11/25/19 11/25/19 Range/Units 06:20 06:20 WBC 11.0 H D (4.0-10.5) K/mm3 RBC 4.12 L (4.7-6.0) M/mm3 Hgb 10.6 L (13.5-18.0) gm/dL Hct 33.3 L (42.0-52.0) % MCH 25.7 L (27-31) pg MCHC 31.8 L (32-36) g/dl RDW 14.5 H (11.5-14.0) % Immature Gran # (Auto) 0.04 H (0.000-0.0310) K/mm3 Neutrophils % 79.1 H (42-75.0) % Lymphocytes % 10.1 L (20-51) % Monocytes % 9.5 H (0.0-9) % Neutrophils # 8.7 H (1.3-6.0) K/mm3 Lymphocytes # 1.11 L (1.5-3.5) k/mm3 Monocytes # 1.1 H (0.0-1.0) k/mm3 Carbon Dioxide 23.9 L (24-32.6) mmol/L BUN/Creatinine Ratio 23.1 H (9.0-21.6) Random Glucose 236 H (70-110) mg/dL Albumin 2.2 L (3.4-5.0) gm/dl - EKG/Xray Findings EKG: NSR EKG read: Reviewed by me XRAY: chest Interpretation: Reviewed by me - Exam Constitutional: Present: Alert, Oriented x3, Cooperative ENT Exam: Present: hearing grossly normal Neck: Present: other - RIGHT AND LEFT BKA RIGHT BKA C/D/I Breasts: Present: Exam deferred Respiratory: Present: lungs clear, normal breath sounds, no respiratory distress, no accessory muscle use Cardiovascular/Chest: Present: normal peripheral pulses, regular rate, rhythm, no chest tenderness, no edema, no gallop, no JVD, no murmur Abdomen: Present: Normal bowel sounds, soft, nontender, nondistended /Rectal: Present: Exam deferred Extremity: Present: other - NO PALPABLE PULSES RT AND LEFT BKA Neurologic: Present: alert, oriented x 3 Eye contact: Present: cooperative Assessment/Plan Plan Narrative: D/C fluids D/C Vanc after last dose this morning Resumed Consistent Carb Diet Lispro 15 units TID with HDSS Lantus 15 units BID Resumed Lovenox Disposition: - Will continue to monitor - Awaiting for placement - Await Ortho and PT recommendations. - Problems/Diagnosis (1) Atherosclerosis of right lower extremity with gangrene Problem: Acute Qualifiers: Peripheral atherosclerosis artery type: [place] artery Qualified Code(s): I70.261 - Atherosclerosis of [place] arteries of extremities with gangrene, right leg (2) Osteomyelitis of foot Problem: Acute Qualifiers: Osteomyelitis type: other acute Laterality: right Qualified Code(s): M86.171 - Other acute osteomyelitis, right ankle and foot (3) MRSA (methicillin resistant staph aureus) culture positive Problem: Acute (4) Pacemaker Problem: Chronic (5) COPD (chronic obstructive pulmonary disease) Problem: Chronic Qualifiers: COPD type: chronic bronchitis Chronic bronchitis type: unspecified Qualified Code(s): J42 - Unspecified chronic bronchitis (6) Anxiety and depression Problem: Chronic (7) Polysubstance abuse Problem: Chronic (8) Chronic pain with drug dependence Problem: Chronic (9) Poorly controlled diabetes mellitus Problem: Chronic (10) CAD (coronary artery disease) Problem: Chronic Qualifiers: Coronary Disease-Associated Artery/Lesion type: [place] artery [place] vs. transplanted heart: [place] heart Associated angina: without angina Qualified Code(s): I25.10 - Atherosclerotic heart disease of [place] coronary artery without angina pectoris
--- NOTE | 2019-11-25 13:35 | PN ---
Subjective - Date and Time Seen Date: 11/25/19 Time: 08:15 Subjective Narrative: Patient notes he still dealing with significant pain. He rates it an 8-10/10. Patient noted his pain is not relieved with any significant measures outside of pain medicine. He does not delineate any changes with movement versus rest. Patient notes he struggled last night to get very much sleep due to pain. Patient states he wants his knee to stop hurting. Objective - Vitals Vitals: Last Vital Signs Temp 36.2 C 11/25/19 10:00 Pulse 77 11/25/19 10:00 Resp 16 11/25/19 10:00 BP 142/81 H 11/25/19 10:00 Pulse Ox 96 11/25/19 10:00 - Abnormal Lab Findings Abnormal Lab Findings: Abnormal Lab Results 11/25/19 11/25/19 Range/Units 06:20 06:20 WBC 11.0 H D (4.0-10.5) K/mm3 RBC 4.12 L (4.7-6.0) M/mm3 Hgb 10.6 L (13.5-18.0) gm/dL Hct 33.3 L (42.0-52.0) % MCH 25.7 L (27-31) pg MCHC 31.8 L (32-36) g/dl RDW 14.5 H (11.5-14.0) % Immature Gran # (Auto) 0.04 H (0.000-0.0310) K/mm3 Neutrophils % 79.1 H (42-75.0) % Lymphocytes % 10.1 L (20-51) % Monocytes % 9.5 H (0.0-9) % Neutrophils # 8.7 H (1.3-6.0) K/mm3 Lymphocytes # 1.11 L (1.5-3.5) k/mm3 Monocytes # 1.1 H (0.0-1.0) k/mm3 Carbon Dioxide 23.9 L (24-32.6) mmol/L BUN/Creatinine Ratio 23.1 H (9.0-21.6) Random Glucose 236 H (70-110) mg/dL Albumin 2.2 L (3.4-5.0) gm/dl - Exam Constitutional: Present: Alert, Mild distress Extremity: Present: other - RLE--> bandages clean/dry/intact, drain in place, capillary refill prior to dressing brisk, limited exam due to excessive pain Assessment/Plan Plan Narrative: -54 y/o male postop day 1 status post right below-knee amputation -Patient had acute difficultly last night with significant pain. Note adjustments to his p.o. as well as IV pain medications has been made. -Nonweightbearing -PT/OT progress as tolerated -Pain control: Use p.o. medications, IV medications for rescue pain -P.o. diet as tolerated -Chronic medical conditions per medicine team -Maintain the drain in place -Maintain postoperative dressings in place -Disposition: Once pain is well controlled, PT/OT goals met, drain has been removed, plan to transition patient to a detention facility for further physical therapy as well as monitoring, chronic medical conditions per medicine team's recommendations - Problems/Diagnosis (1) Gangrenous toe Problem: Acute (2) Osteomyelitis of foot Problem: Acute Qualifiers: Osteomyelitis type: other acute Laterality: right Qualified Code(s): M86.171 - Other acute osteomyelitis, right ankle and foot
[2019-11-25] MEDS: SENNOSIDES/DOCUSATE SODIUM 1 TAB TABLET PO SCH (21:54)
[2019-11-26] MEDS: oxyCODONE HCL 5 MG TABLET PO PRN ×6 (01:07→23:15)
[2019-11-26] MEDS: ALBUTEROL SULFATE/IPRATROPIUM 3 ML NEBU IH SCH ×6 (02:26→22:58)
[2019-11-26] MEDS: HYDROmorphone HCL 1 MG/ML DISP.SYRIN IV PRN ×4 (02:52→20:06)
[2019-11-26 05:12] LABS: Mean Cell Volume 79.8 fl (78-100); Mean Corpuscular Hemoglobin 24.9 pg (27-31); Mean Corpuscular Hgb Conc 31.3 g/dl (32-36); Mean Platelet Volume 9.1 fl (8-11.3); Neutrophil # 7.5 K/mm3 (1.3-6.0); Neutrophil % 73.3 % (42-75.0); Platelet Count 300 K/mm3 (150-450); Red Blood Count 4.01 M/mm3 (4.7-6.0); Red Cell Distribution Width 14.6 % (11.5-14.0); White Blood Count 10.2 K/mm3 (4.0-10.5)
[2019-11-26 05:34] LABS: Albumin * 2.2 gm/dl (3.4-5.0); Anion Gap 12.7 mmol/L (6.8-13.8); BUN/Creatinine Ratio 35.3 (9.0-21.6); Bilirubin, Total 0.3 mg/dL (0.0-1.1); Ca. Corrected For Albumin 9.8 mg/dL (8.4-10.2); Calcium * 8.7 mg/dL (7.9-10.9); Carbon Dioxide 24.1 mmol/L (24-32.6); Potassium 3.8 mmol/L (3.4-4.6); Total Protein 6.7 gm/dL (6.2-8.2)
[2019-11-26] MEDS: BUDESONIDE 0.25 MG/2 ML VIAL.NEB IH SCH ×2 (06:23→18:36)
[2019-11-26] MEDS: FORMOTEROL FUMARATE 20 MCG/2 ML VIAL IH SCH ×2 (06:23→18:36)
[2019-11-26] MEDS: INSULIN LISPRO 100 UNITS/ML VIAL SC SCH ×9 (07:01→21:55)
[2019-11-26] MEDS: LISINOPRIL 40 MG TABLET PO SCH (08:07)
[2019-11-26] MEDS: INSULIN GLARGINE,HUM.REC.ANLOG 100 UNITS/ML VIAL SC SCH ×2 (08:07→21:56)
[2019-11-26] MEDS: CARVEDILOL 12.5 MG TABLET PO SCH (08:07)
[2019-11-26] MEDS: ASPIRIN 325 MG TABLET.DR PO SCH (08:07)
[2019-11-26] MEDS ORDERED: METOPROLOL SUCCINATE 50 MG TABLET.SA PO SCH (10:15)
--- NOTE | 2019-11-26 10:19 | PN ---
Subjective - Date and Time Seen Date: 11/26/19 Time: 10:19 Subjective Narrative: No acute events overnight. Patient states he slept better and pain better controlled. States he cannot do the incentive spirometry. Taught him at bedside and was able to use it. Goal set at 2000, he was able to reach between 1000- 1500. Advised if cannot do every hour, goal is 6 times in the next 24 hours and will increase daily. States his left BKA is swelling. Remaining PE is not concerning for fluid overload. Explained will apply [employer] to help with swelling. Tolerating PT. Appetite at baseline. +BM. No N/V. No F/C. No SOB or CP. Objective - Review of Systems Generalized/Overall Review: Reports: Weakness. Denies: Chills, Fever, Fatigue EENTM: Reports: No Symptoms Reported Respiratory: Denies: Cough, Shortness of Breath, Orthopnea, Stridor, Wheezing Cardiac: Denies: Chest Pain, Edema Abdominal: Denies: Nausea, Vomiting, Abdominal Pain, Constipation Genitourinary Symptoms: Reports: No Symptoms Reported Musculoskeletal Complaints: Reports: Joint Pain - RGHT BKA STUMP, Joint Swelling - LEFT BKA STUMP Neurological: Reports: Weakness Skin: Denies: Dryness Endocrine: Denies: No Symptoms Reported - Vitals Vitals: Last Vital Signs Temp 36.8 C 11/26/19 09:08 Pulse 85 11/26/19 09:08 Resp 12 11/26/19 09:08 BP 156/85 H 11/26/19 09:08 Pulse Ox 94 11/26/19 09:08 - Abnormal Lab Findings Abnormal Lab Findings: Abnormal Lab Results 11/26/19 11/26/19 Range/Units 05:00 05:00 RBC 4.01 L (4.7-6.0) M/mm3 Hgb 10.0 L (13.5-18.0) gm/dL Hct 32.0 L (42.0-52.0) % MCH 24.9 L (27-31) pg MCHC 31.3 L (32-36) g/dl RDW 14.6 H (11.5-14.0) % Lymphocytes % 12.8 L (20-51) % Monocytes % 11.5 H (0.0-9) % Neutrophils # 7.5 H (1.3-6.0) K/mm3 Lymphocytes # 1.31 L (1.5-3.5) k/mm3 Monocytes # 1.2 H (0.0-1.0) k/mm3 BUN 24 H (6-23) mg/dL BUN/Creatinine Ratio 35.3 H (9.0-21.6) Random Glucose 123 H D (70-110) mg/dL Albumin 2.2 L (3.4-5.0) gm/dl - EKG/Xray Findings EKG: other - PACED EKG read: Interp. by me - Wide complex tachycardia with ventricular pacemaker. XRAY: chest Interpretation: Reviewed by me - Hyperinflammation. - Exam Constitutional: Present: Alert, Oriented x3, Cooperative ENT Exam: Present: hearing grossly normal Neck: Present: non-tender, full range of motion, supple Respiratory: Present: lungs clear, normal breath sounds, no respiratory dist ress, no accessory muscle use Cardiovascular/Chest: Present: tachycardia, systolic murmur - STEVE border, other - unable to appreciate palpable peripheral pulses due to known vascular disease. Absent: normal peripheral pulses Abdomen: Present: Normal bowel sounds, soft, nontender /Rectal: Present: Exam deferred Extremity: Present: normal range of motion, leg pain - right bka stump, swelling - left bka stump and thigh, other - Left BKA, cool/dry to touch, incision healed well Right BKA C/D/I and serosanginous fluid Skin Exam: Present: cool/dry - left bka stump Neurologic: Present: alert, oriented x 3 Appearance: Present: disheveled Eye contact: Present: cooperative, good eye contact Thoughts: Present: normal thought pattern Assessment/Plan Plan Narrative: Assessment/Plan: 54 year old M with poorly controlled Diabetes Mellitus Type II, admitted for Gangrene of his Right LE (Below the knee). S/P Right BKA POD #1: Dr. Hernandez on board. - MRSA (methicillin resistant staph aureus) culture positive. - Received adequate prophylactic antibiotic treatment with Vancomycin pre and post-op. - Pain controlled with dilaudid and oxycodone. - Pain management by Ortho Wide-complex tachycardia with ventricular Pacemaker - Poorly controlled, however hemodynamically stable - Optimize dose to Coreg to 25 mg PO BID - Repeat EKG in AM - Failure to control HR, will consider Cardizem versus Verapamil - If patient becomes unstable will administer Amiodarone and consider transfer for cardioversion Poorly controlled diabetes mellitus - Better control with Lantus 15 units TID - Decreased Lispro from 10 to 5 units with MDSS, due to lower blood sugars prior to meals. - Will evaluate additional insulin required with sliding scale and adjust accordingly - Educated on importance of tight glycemic control for proper healing. Poorly Controlled Hypertension - Cont. Lisinoril 40 mg PO QD - Optimized dose of Coreg - Will add CHARLENE diet better BP controlled - Failure to control BP, will consider adding HCTZ versus low dose lasix FEN: Consistent Carbs. CHARLENE diet DVT PPX: Aspirin 325 mg as per ortho recs. [employer] Supervisor for Left BKA for swelling CODE STATUS: DNR/DNI Disposition: - Continue to monitor blood glucose, BP and Rhythym - Await Ortho and PT/OT Recs - Follow up on assistance to apply for medicare and disability due to poor literacy. - Awaiting placement. - Medication Assistance can be provided at [facility] ([facility]). * [place]: [address] [place] [id number]. P: [phone] * [place]: [address] [facility] [address]. P:[phone] - Problems/Diagnosis (1) S/P BKA (below knee amputation) unilateral Problem: Acute (2) Wide-complex tachycardia Problem: Acute (3) Atherosclerosis of right lower extremity with gangrene Problem: Acute Qualifiers: Peripheral atherosclerosis artery type: [place] artery Qualified Code(s): I70.261 - Atherosclerosis of [place] arteries of extremities with gangrene, right leg (4) MRSA (methicillin resistant staph aureus) culture positive Problem: Acute (5) Pacemaker Problem: Chronic (6) COPD (chronic obstructive pulmonary disease) Problem: Chronic Qualifiers: COPD type: chronic bronchitis Chronic bronchitis type: unspecified Qualified Code(s): J42 - Unspecified chronic bronchitis (7) Anxiety and depression Problem: Chronic (8) Polysubstance abuse Problem: Chronic (9) Chronic pain with drug dependence Problem: Chronic (10) Poorly controlled diabetes mellitus Problem: Chronic (11) Hypertension Problem: Chronic Qualifiers: Hypertension type: essential hypertension Qualified Code(s): I10 - Essential (primary) hypertension Narrative: poorly controlled (12) CAD (coronary artery disease) Problem: Chronic Qualifiers: Coronary Disease-Associated Artery/Lesion type: [place] artery [place] vs. transplanted heart: [place] heart Associated angina: without angina Qualified Code(s): I25.10 - Atherosclerotic heart disease of [place] coronary artery without angina pectoris (13) Hx of BKA Problem: Chronic Qualifiers: Laterality: left Qualified Code(s): Z89.512 - Acquired absence of left leg below knee (14) Osteomyelitis of foot Problem: Resolved Qualifiers: Osteomyelitis type: other acute Laterality: right Qualified Code(s): M86.171 - Other acute osteomyelitis, right ankle and foot
--- NOTE | 2019-11-26 10:47 | PN ---
Subjective - Date and Time Seen Date: 11/26/19 Time: 10:38 Subjective Narrative: No events overnight. Complains of pain this am but no other complaints. Re- iterated the importance of proper wound care and blood sugar control going forward. Objective - Vitals Vitals: Last Vital Signs Temp 36.8 C 11/26/19 09:08 Pulse 76 11/26/19 10:33 Resp 18 11/26/19 10:33 BP 156/85 H 11/26/19 09:08 Pulse Ox 94 11/26/19 09:08 - Abnormal Lab Findings Abnormal Lab Findings: Abnormal Lab Results 11/26/19 11/26/19 Range/Units 05:00 05:00 RBC 4.01 L (4.7-6.0) M/mm3 Hgb 10.0 L (13.5-18.0) gm/dL Hct 32.0 L (42.0-52.0) % MCH 24.9 L (27-31) pg MCHC 31.3 L (32-36) g/dl RDW 14.6 H (11.5-14.0) % Lymphocytes % 12.8 L (20-51) % Monocytes % 11.5 H (0.0-9) % Neutrophils # 7.5 H (1.3-6.0) K/mm3 Lymphocytes # 1.31 L (1.5-3.5) k/mm3 Monocytes # 1.2 H (0.0-1.0) k/mm3 BUN 24 H (6-23) mg/dL BUN/Creatinine Ratio 35.3 H (9.0-21.6) Random Glucose 123 H D (70-110) mg/dL Albumin 2.2 L (3.4-5.0) gm/dl - Exam Exam Narrative: Gen: Alert, oriented x4 Resp: breathing non-labored on room air MSK: RLE--> dressings intact with no drainage, drain in place, stump appropriately tender Assessment/Plan - Problems/Diagnosis (1) Atherosclerosis of right lower extremity with gangrene Problem: Acute Qualifiers: Peripheral atherosclerosis artery type: [place] artery Qualified Code(s): I70.261 - Atherosclerosis of [place] arteries of extremities with gangrene, right leg (2) Gangrene of toe of right foot Problem: Acute Narrative: 54 yo M s/p R below knee amputation for R foot gangrene, POD #2. -reg diet -oral pain meds with IV for breakthrough -drain output minimal, will pull today -d/c antibiotics -blood sugars well controlled on insulin -continue care per Medicine team -dispo: d/c planning ongoing
[2019-11-26] MEDS: CARVEDILOL 25 MG TABLET PO SCH ×2 (11:03→21:53)
[2019-11-26] MEDS: SENNOSIDES/DOCUSATE SODIUM 1 TAB TABLET PO SCH (23:15)
[2019-11-27] MEDS: HYDROmorphone HCL 1 MG/ML DISP.SYRIN IV PRN ×2 (01:46→05:54)
[2019-11-27] MEDS: oxyCODONE HCL 5 MG TABLET PO PRN ×8 (05:14→20:52)
[2019-11-27 05:52] LABS: Hematocrit 30.7 % (42.0-52.0); Hemoglobin 9.7 gm/dL (13.5-18.0); Mean Cell Volume 80.2 fl (78-100); Mean Corpuscular Hemoglobin 25.3 pg (27-31); Mean Corpuscular Hgb Conc 31.6 g/dl (32-36); Mean Platelet Volume 9.6 fl (8-11.3); Neutrophil # 6.2 K/mm3 (1.3-6.0); Neutrophil % 71.5 % (42-75.0); Platelet Count 288 K/mm3 (150-450); Red Blood Count 3.83 M/mm3 (4.7-6.0); Red Cell Distribution Width 14.7 % (11.5-14.0); White Blood Count 8.7 K/mm3 (4.0-10.5)
[2019-11-27 06:09] LABS: Anion Gap 11.4 mmol/L (6.8-13.8); BUN/Creatinine Ratio 32.9 (9.0-21.6); Bilirubin, Total 0.2 mg/dL (0.0-1.1); Ca. Corrected For Albumin 9.7 mg/dL (8.4-10.2); Calcium * 8.4 mg/dL (7.9-10.9); Carbon Dioxide 25.4 mmol/L (24-32.6); Potassium 3.8 mmol/L (3.4-4.6); Total Protein 6.5 gm/dL (6.2-8.2)
[2019-11-27 06:13] LABS: Hemoglobin A1C 12.7 % (4.00-6.0)
[2019-11-27] MEDS: INSULIN LISPRO 100 UNITS/ML VIAL SC SCH ×7 (07:42→22:22)
[2019-11-27] MEDS: INSULIN GLARGINE,HUM.REC.ANLOG 100 UNITS/ML VIAL SC SCH ×2 (09:38→22:21)
[2019-11-27] MEDS: LISINOPRIL 40 MG TABLET PO SCH (09:38)
[2019-11-27] MEDS: ASPIRIN 325 MG TABLET.DR PO SCH (09:38)
[2019-11-27] MEDS: CARVEDILOL 25 MG TABLET PO SCH ×2 (09:38→22:18)
[2019-11-27] MEDS: FORMOTEROL FUMARATE 20 MCG/2 ML VIAL IH SCH ×2 (09:56→18:15)
[2019-11-27] MEDS: BUDESONIDE 0.25 MG/2 ML VIAL.NEB IH SCH ×2 (09:56→18:15)
[2019-11-27] MEDS: ALBUTEROL SULFATE/IPRATROPIUM 3 ML NEBU IH SCH ×5 (09:56→22:34)
[2019-11-27] MEDS ORDERED: HYDROmorphone HCL 1 MG/ML DISP.SYRIN IV PRN (10:21)
--- NOTE | 2019-11-27 10:25 | PN ---
Subjective - Date and Time Seen Date: 11/27/19 Time: 10:25 Subjective Narrative: No acute events overnight. However patient continued to get dialudid IV and now is upset with the changes and wants to leave AMA. Discussed meds switched to PO, and its important to stay in the hospital, where he can get appropriate help which can result in a full recovery. Patient is disgruntled, however has seem to calm down a little. Will continue to encourage patient not to leave AMA. Objective - Review of Systems Generalized/Overall Review: Reports: Weakness EENTM: Reports: No Symptoms Reported Respiratory: Denies: Cough, Shortness of Breath Cardiac: Denies: Chest Pain, Edema Abdominal: Reports: Abdominal Pain. Denies: Nausea, Vomiting Genitourinary Symptoms: Reports: No Symptoms Reported Musculoskeletal Complaints: Reports: Joint Pain - right BKA stump Neurological: Reports: Anxiety, Depressed, Emotional Problems, Weakness Skin: Denies: Dryness Endocrine: Denies: No Symptoms Reported - Vitals Vitals: Last Vital Signs Temp 36.9 C 11/27/19 07:00 Pulse 76 11/27/19 09:38 Resp 12 11/27/19 07:00 BP 143/80 H 11/27/19 09:38 Pulse Ox 95 11/27/19 07:00 - Abnormal Lab Findings Abnormal Lab Findings: Abnormal Lab Results 11/27/19 11/27/19 11/27/19 Range/Units 05:25 05:25 05:25 RBC 3.83 L (4.7-6.0) M/mm3 Hgb 9.7 L (13.5-18.0) gm/dL Hct 30.7 L (42.0-52.0) % MCH 25.3 L (27-31) pg MCHC 31.6 L (32-36) g/dl RDW 14.7 H (11.5-14.0) % Immature Gran % (Auto) 0.50 H (0.001-0.429) % Immature Gran # (Auto) 0.04 H (0.000-0.0310) K/mm3 Lymphocytes % 16.6 L (20-51) % Monocytes % 9.8 H (0.0-9) % Neutrophils # 6.2 H (1.3-6.0) K/mm3 Lymphocytes # 1.44 L (1.5-3.5) k/mm3 BUN 28 H (6-23) mg/dL BUN/Creatinine Ratio 32.9 H (9.0-21.6) Random Glucose 174 H D (70-110) mg/dL Hemoglobin A1c 12.7 H (4.00-6.0) % Alkaline Phosphatase 202 H (50-170) U/L Albumin 2.0 L (3.4-5.0) gm/dl - EKG/Xray Findings EKG: other - wide complex tachycardia EKG read: Interp. by me - wide complex tachycardia ventricular pacer - Exam Constitutional: Present: Alert, Oriented x3, Cooperative, No distress ENT Exam: Present: hearing grossly normal Neck: Present: non-tender, full range of motion Respiratory: Present: chest non-tender, lungs clear, normal breath sounds, no respiratory distress, no accessory muscle use, respiratory distress Cardiovascular/Chest: Present: no chest tenderness, no edema, no JVD, no murmur, systolic murmur. Absent: normal peripheral pulses - unable to palpate posterior tibial pulses-chronic Abdomen: Present: Normal bowel sounds, soft, nontender /Rectal: Present: Exam deferred Extremity: Present: leg pain - right bka stump pain Bandage in place C/D/I Skin Exam: Present: cool/dry - left bka stump Neurologic: Present: alert, oriented x 3 Appearance: Present: disheveled Eye contact: Present: avoids eye contact, uncooperative - THREATENING TO LEAVE AMA Thoughts: Present: other - Irrational decision making Assessment/Plan Plan Narrative: Assessment/Plan: 54 year old M with poorly controlled Diabetes Mellitus Type II, admitted for Gangrene of his Right LE (Below the knee). S/P Right BKA POD #2: Dr. Hernandez on board. - Pain medication by ortho. - Oxycodone for pain management Wide-complex tachycardia with ventricular Pacemaker - Poorly controlled, however hemodynamically stable - Started Verapamil 180 mg PO Daily, will titrate till well controlled. - Coreg to 25 mg PO BID - AM EKG pending - Failure to control HR, will consider, administering Amiodarone and consider transfer for cardioversion Poorly controlled diabetes mellitus: A1C> 12 - Blood Sugars better controlled - Lantus 20 units BID for better glucose control in AM - Lispro 5 units TID with meals along with MDSS Poorly Controlled Hypertension - Improving but not yet well controlled - Cont. Lisinoril 40 mg PO QD - Continue Coreg 25 mg PO BID - Started for Verapamil 180 mg PO QD, but this is more for wide complex tachycardia - Will add HCTZ 25mg PO QAM. FEN: Consistent Carbs. CHARLENE diet DVT PPX: Aspirin 325 mg as per ortho recs. 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 - If patient becomes hemodynamically unstable will transfer for cardioversion. - Await Ortho and PT/OT Recs - Follow up on assistance to apply for medicare and disability due to poor literacy. - Awaiting placement. - Medication Assistance can be provided at [facility] Medical [facility] ([facility]). * [place]: [address] [place] [address]. P: [phone] * [place]: [address] [facility] [address]. P:[phone] - Problems/Diagnosis (1) S/P BKA (below knee amputation) unilateral Problem: Acute (2) Wide-complex tachycardia Problem: Acute (3) Atherosclerosis of right lower extremity with gangrene Problem: Acute Qualifiers: Peripheral atherosclerosis artery type: [place] artery Qualified Code(s): I70.261 - Atherosclerosis of [place] arteries of extremities with gangrene, right leg (4) MRSA (methicillin resistant staph aureus) culture positive Problem: Acute (5) Pacemaker Problem: Chronic (6) COPD (chronic obstructive pulmonary disease) Problem: Chronic Qualifiers: COPD type: chronic bronchitis Chronic bronchitis type: unspecified Qualified Code(s): J42 - Unspecified chronic bronchitis (7) Anxiety and depression Problem: Chronic (8) Polysubstance abuse Problem: Chronic (9) Chronic pain with drug dependence Problem: Chronic (10) Poorly controlled diabetes mellitus Problem: Chronic (11) Hypertension Problem: Chronic Qualifiers: Hypertension type: essential hypertension Qualified Code(s): I10 - Essenti al (primary) hypertension (12) CAD (coronary artery disease) Problem: Chronic Qualifiers: Coronary Disease-Associated Artery/Lesion type: [place] artery [place] vs. transplanted heart: [place] heart Associated angina: without angina Qualified Code(s): I25.10 - Atherosclerotic heart disease of [place] coronary artery without angina pectoris (13) Hx of BKA Problem: Chronic Qualifiers: Laterality: left Qualified Code(s): Z89.512 - Acquired absence of left leg below knee (14) Osteomyelitis of foot Problem: Resolved Qualifiers: Osteomyelitis type: other acute Laterality: right Qualified Code(s): M86.171 - Other acute osteomyelitis, right ankle and foot
[2019-11-27] MEDS ORDERED: HYDROmorphone HCL 2 MG TABLET PO PRN (11:09)
--- NOTE | 2019-11-27 11:16 | PN ---
Subjective - Date and Time Seen Date: 11/27/19 Time: 11:12 Subjective Narrative: Patient notes he still is having moderate pain. He does note he feels as though slightly improved from postoperative day 1. Patient states he does want to go home. He is significantly upset with his social situation. Notes no other acute events currently. Objective - Vitals Vitals: Last Vital Signs Temp 36.8 C 11/27/19 10:24 Pulse 79 11/27/19 10:42 Resp 14 11/27/19 10:24 BP 149/77 H 11/27/19 10:24 Pulse Ox 97 11/27/19 10:24 - Abnormal Lab Findings Abnormal Lab Findings: Abnormal Lab Results 11/27/19 11/27/19 11/27/19 Range/Units 05:25 05:25 05:25 RBC 3.83 L (4.7-6.0) M/mm3 Hgb 9.7 L (13.5-18.0) gm/dL Hct 30.7 L (42.0-52.0) % MCH 25.3 L (27-31) pg MCHC 31.6 L (32-36) g/dl RDW 14.7 H (11.5-14.0) % Immature Gran % (Auto) 0.50 H (0.001-0.429) % Immature Gran # (Auto) 0.04 H (0.000-0.0310) K/mm3 Lymphocytes % 16.6 L (20-51) % Monocytes % 9.8 H (0.0-9) % Neutrophils # 6.2 H (1.3-6.0) K/mm3 Lymphocytes # 1.44 L (1.5-3.5) k/mm3 BUN 28 H (6-23) mg/dL BUN/Creatinine Ratio 32.9 H (9.0-21.6) Random Glucose 174 H D (70-110) mg/dL Hemoglobin A1c 12.7 H (4.00-6.0) % Alkaline Phosphatase 202 H (50-170) U/L Albumin 2.0 L (3.4-5.0) gm/dl - Exam Constitutional: Present: Alert, Mild distress Extremity: Present: other - RLE--> bandages clean/dry/intact, drain was removed, sensation intact light touch, capillary refill proximal to the bandage brisk, diffuse tenderness about stump, below-knee amputation LLE--> previous below-knee amputation Assessment/Plan Plan Narrative: 54 yo M s/p R below knee amputation for R foot gangrene, POD #3. -Had a lengthy discussion with patient about continued care and possible follow- up care as well as continued need for maintaining clean dressings and monitoring stump healing. Patient expressed understanding agreed to not leave AMA at this point. Continue to work towards pain control. -reg diet -oral pain meds with IV for breakthrough, can give 10 mg dose of oxycodone followed by an additional 5 mg every 3 PRN for pain -Maintain dressings in place -DVT prophylaxis: Aspirin 325 mg daily -d/c antibiotics -blood sugars well controlled on insulin -continue care per Medicine team -dispo: d/c planning ongoing - Problems/Diagnosis (1) Gangrenous toe Problem: Acute
[2019-11-27] MEDS ORDERED: KETOROLAC TROMETHAMINE 30 MG/ML VIAL IM PRN (11:27)
[2019-11-27] MEDS: VERAPAMIL HCL 120 MG TABLET.SA PO SCH (11:43)
[2019-11-27] MEDS ORDERED: INSULIN LISPRO 100 UNITS/ML VIAL SC SCH (12:00)
[2019-11-27] MEDS: SENNOSIDES/DOCUSATE SODIUM 1 TAB TABLET PO SCH (22:19)
[2019-11-28] MEDS: ALBUTEROL SULFATE/IPRATROPIUM 3 ML NEBU IH SCH ×6 (02:02→22:13)
[2019-11-28] MEDS: INSULIN LISPRO 100 UNITS/ML VIAL SC SCH ×9 (02:34→22:00)
[2019-11-28] MEDS: oxyCODONE HCL 5 MG TABLET PO PRN ×6 (03:53→15:52)
[2019-11-28 05:48] LABS: Hematocrit 30.4 % (42.0-52.0); Hemoglobin 9.5 gm/dL (13.5-18.0); Mean Cell Volume 79.8 fl (78-100); Mean Corpuscular Hemoglobin 24.9 pg (27-31); Mean Corpuscular Hgb Conc 31.3 g/dl (32-36); Mean Platelet Volume 9.6 fl (8-11.3); Neutrophil % 65.6 % (42-75.0); Platelet Count 314 K/mm3 (150-450); Red Blood Count 3.81 M/mm3 (4.7-6.0); Red Cell Distribution Width 14.6 % (11.5-14.0); White Blood Count 7.6 K/mm3 (4.0-10.5)
[2019-11-28 05:59] LABS: Albumin * 1.9 gm/dl (3.4-5.0); BUN/Creatinine Ratio 42.9 (9.0-21.6); Bilirubin, Total 0.2 mg/dL (0.0-1.1); Ca. Corrected For Albumin 9.8 mg/dL (8.4-10.2); Calcium * 8.4 mg/dL (7.9-10.9); Carbon Dioxide 26.2 mmol/L (24-32.6); Potassium 4.2 mmol/L (3.4-4.6); Total Protein 6.5 gm/dL (6.2-8.2)
[2019-11-28] MEDS: FORMOTEROL FUMARATE 20 MCG/2 ML VIAL IH SCH ×2 (06:03→18:52)
[2019-11-28] MEDS: BUDESONIDE 0.25 MG/2 ML VIAL.NEB IH SCH ×2 (06:04→18:52)
--- NOTE | 2019-11-28 07:06 | PN ---
Subjective - Date and Time Seen Date: 11/28/19 Time: 07:02 Subjective Narrative: no acute events overnight. Pain well controlled. Discussed about compliance and not to leave AMA Objective - Review of Systems Generalized/Overall Review: Reports: Weakness. Denies: Chills, Fever EENTM: Denies: No Symptoms Reported Respiratory: Denies: Cough, Shortness of Breath Cardiac: Denies: Chest Pain, Edema Abdominal: Denies: Nausea, Vomiting, Abdominal Pain Genitourinary Symptoms: Reports: No Symptoms Reported Musculoskeletal Complaints: Reports: Joint Pain - right BKA, Joint Swelling - RIGHT bka Neurological: Reports: Weakness Skin: Reports: Dryness Endocrine: Reports: No Symptoms Reported - Vitals Vitals: Last Vital Signs Temp 36.5 C 11/28/19 02:00 Pulse 65 11/28/19 06:03 Resp 20 11/28/19 06:03 BP 127/70 11/28/19 02:00 Pulse Ox 95 11/28/19 06:03 - Abnormal Lab Findings Abnormal Lab Findings: Abnormal Lab Results 11/28/19 11/28/19 Range/Units 05:25 05:25 RBC 3.81 L (4.7-6.0) M/mm3 Hgb 9.5 L (13.5-18.0) gm/dL Hct 30.4 L (42.0-52.0) % MCH 24.9 L (27-31) pg MCHC 31.3 L (32-36) g/dl RDW 14.6 H (11.5-14.0) % Immature Gran % (Auto) 0.50 H (0.001-0.429) % Immature Gran # (Auto) 0.04 H (0.000-0.0310) K/mm3 Lymphocytes % 19.4 L (20-51) % Monocytes % 12.3 H (0.0-9) % Lymphocytes # 1.47 L (1.5-3.5) k/mm3 BUN 36 H (6-23) mg/dL BUN/Creatinine Ratio 42.9 H (9.0-21.6) Alkaline Phosphatase 235 H (50-170) U/L Albumin 1.9 L (3.4-5.0) gm/dl - EKG/Xray Findings EKG: other - wide complex rhthym ventricular paced EKG read: Interp. by me - Exam Constitutional: Present: Alert, Oriented x3, Cooperative ENT Exam: Present: hearing grossly normal Neck: Present: non-tender, full range of motion, supple Respiratory: Present: lungs clear, normal breath sounds, no respiratory distress, no accessory muscle use Cardiovascular/Chest: Present: regular rate, rhythm, no murmur, systolic murmur, other. Absent: normal peripheral pulses - no palpable posterior tibial pulses Abdomen: Present: Normal bowel sounds, soft, nontender, nondistended /Rectal: Present: Exam deferred Extremity: Present: normal range of motion, swelling - right BKA, other - bl bka rt bka in bandage C/D/I Skin Exam: Present: normal color, cool/dry - LEFT BKA Neurologic: Present: alert, oriented x 3 Appearance: Present: appropriate appearance, appropriate insight Eye contact: Present: cooperative, good eye contact Thoughts: Present: normal thought pattern Assessment/Plan Plan Narrative: Assessment/Plan: 54 year old M with poorly controlled Diabetes Mellitus Type II, admitted for Gangrene of his Right LE (Below the knee). S/P Right BKA POD #4: Dr. Hernandez on board. - Pain medication by ortho. - Oxycodone for pain management Wide-complex tachycardia with ventricular Pacemaker - Well controlled - Cont Verapamil 180 mg PO Daily, - Cont Coreg to 25 mg PO BID Poorly controlled diabetes mellitus: A1C> 12 - Blood Sugars well controled - Lantus 20 units BID for better glucose control in AM - Lispro 5 units TID with meals along with MDSS Poorly Controlled Hypertension - Now well controlled - Cont. Lisinopril 40 mg PO QD - Continue Coreg 25 mg PO BID - Cont Verapamil 180 mg PO QD, but this is more for wide complex tachycardia - Cont HCTZ 25mg PO QAM. FEN: Consistent Carbs. CHARLENE diet DVT PPX: Aspirin 325 mg as per ortho recs. 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 - Awaiting placement. - Problems/Diagnosis (1) S/P BKA (below knee amputation) unilateral Problem: Acute (2) Wide-complex tachycardia Problem: Acute (3) Atherosclerosis of right lower extremity with gangrene Problem: Acute Qualifiers: Peripheral atherosclerosis artery type: [place] artery Qualified Code(s): I70.261 - Atherosclerosis of [place] arteries of extremities with gangrene, right leg (4) MRSA (methicillin resistant staph aureus) culture positive Problem: Acute (5) Pacemaker Problem: Chronic (6) COPD (chronic obstructive pulmonary disease) Problem: Chronic Qualifiers: COPD type: chronic bronchitis Chronic bronchitis type: unspecified Qualified Code(s): J42 - Unspecified chronic bronchitis (7) Anxiety and depression Problem: Chronic (8) Polysubstance abuse Problem: Chronic (9) Chronic pain with drug dependence Problem: Chronic (10) Poorly controlled diabetes mellitus Problem: Chronic (11) Hypertension Problem: Chronic Qualifiers: Hypertension type: essential hypertension Qualified Code(s): I10 - Essential (primary) hypertension (12) CAD (coronary artery disease) Problem: Chronic Qualifiers: Coronary Disease-Associated Artery/Lesion type: [place] artery [place] vs. transplanted heart: [place] heart Associated angina: without angina Qualified Code(s): I25.10 - Atherosclerotic heart disease of [place] coronary artery without angina pectoris (13) Hx of BKA Problem: Chronic Qualifiers: Laterality: left Qualified Code(s): Z89.512 - Acquired absence of left leg below knee
[2019-11-28] MEDS: VERAPAMIL HCL 120 MG TABLET.SA PO SCH (09:50)
[2019-11-28] MEDS: ASPIRIN 325 MG TABLET.DR PO SCH (09:51)
[2019-11-28] MEDS: INSULIN GLARGINE,HUM.REC.ANLOG 100 UNITS/ML VIAL SC SCH ×2 (09:51→22:00)
[2019-11-28] MEDS: LISINOPRIL 40 MG TABLET PO SCH (09:51)
[2019-11-28] MEDS: CARVEDILOL 25 MG TABLET PO SCH ×2 (09:51→21:59)
[2019-11-28] MEDS: HYDROCHLOROTHIAZIDE 12.5 MG CAPSULE PO SCH (12:08)
--- NOTE | 2019-11-28 13:05 | PN ---
Subjective - Date and Time Seen Date: 11/28/19 Time: 08:05 Subjective Narrative: Patient reports no acute events. He notes his pain is continued to improve. He appears to have significant less pain upon presentation today. He notes he is feeling much better than he has over the last few days. He states his pain is still worse with movement better with rest. Objective - Vitals Vitals: Last Vital Signs Temp 36.6 C 11/28/19 08:59 Pulse 68 11/28/19 11:02 Resp 18 11/28/19 11:02 BP 127/70 11/28/19 09:51 Pulse Ox 93 11/28/19 10:52 - Abnormal Lab Findings Abnormal Lab Findings: Abnormal Lab Results 11/28/19 11/28/19 Range/Units 05:25 05:25 RBC 3.81 L (4.7-6.0) M/mm3 Hgb 9.5 L (13.5-18.0) gm/dL Hct 30.4 L (42.0-52.0) % MCH 24.9 L (27-31) pg MCHC 31.3 L (32-36) g/dl RDW 14.6 H (11.5-14.0) % Immature Gran % (Auto) 0.50 H (0.001-0.429) % Immature Gran # (Auto) 0.04 H (0.000-0.0310) K/mm3 Lymphocytes % 19.4 L (20-51) % Monocytes % 12.3 H (0.0-9) % Lymphocytes # 1.47 L (1.5-3.5) k/mm3 BUN 36 H (6-23) mg/dL BUN/Creatinine Ratio 42.9 H (9.0-21.6) Alkaline Phosphatase 235 H (50-170) U/L Albumin 1.9 L (3.4-5.0) gm/dl - Exam Constitutional: Present: Alert, Cooperative, No distress Extremity: Present: other - RLE--> sensation intact light touch, diffuse tenderness over distal stump, capillary refill brisk proximal to bandages, bandages intact/dry Eye contact: Present: cooperative Assessment/Plan Plan Narrative: 54 yo M s/p R below knee amputation for R foot gangrene, POD #4. -PT/OT progress as tolerated, range of motion and overall strength -reg diet -oral pain meds, can give 10 mg dose of oxycodone followed by an additional 5 mg every 3 PRN for pain -Maintain dressings in place, plan to change to Tubigrip and dry gauze today, continue with dressing changes PRN with sterile gauze and Tubigrip -DVT prophylaxis: Aspirin 325 mg daily -d/c antibiotics -blood sugars well controlled on insulin -continue care per Medicine team -dispo: d/c planning ongoing - Problems/Diagnosis (1) Gangrenous toe Problem: Acute (2) Status post below-knee amputation of right lower extremity Problem: Acute
[2019-11-28] MEDS: CEPHALEXIN MONOHYDRATE 500 MG CAPSULE PO SCH ×2 (15:52→22:02)
[2019-11-28] MEDS: SENNOSIDES/DOCUSATE SODIUM 1 TAB TABLET PO SCH (22:02)
[2019-11-29] MEDS: oxyCODONE HCL 5 MG TABLET PO PRN ×5 (01:24→21:42)
[2019-11-29] MEDS: ALBUTEROL SULFATE/IPRATROPIUM 3 ML NEBU IH SCH ×6 (02:10→22:26)
[2019-11-29] MEDS: CEPHALEXIN MONOHYDRATE 500 MG CAPSULE PO SCH ×4 (02:31→21:35)
[2019-11-29] MEDS: FORMOTEROL FUMARATE 20 MCG/2 ML VIAL IH SCH ×2 (06:30→18:17)
[2019-11-29] MEDS: BUDESONIDE 0.25 MG/2 ML VIAL.NEB IH SCH ×2 (06:30→18:16)
--- NOTE | 2019-11-29 06:37 | PN ---
Subjective - Date and Time Seen Date: 11/29/19 Time: 06:25 Subjective Narrative: No acute events overnight. + BM. Intake and output at baseline. Pain well controlled. No F/C. No SOB. No CP. Objective - Review of Systems Generalized/Overall Review: Denies: Weakness, Chills, Fever EENTM: Reports: No Symptoms Reported Respiratory: Denies: Cough, Shortness of Breath, Orthopnea Cardiac: Denies: Chest Pain, Edema, Palpitations Abdominal: Denies: Nausea, Vomiting, Abdominal Pain, Constipation Genitourinary Symptoms: Reports: No Symptoms Reported Musculoskeletal Complaints: Reports: No Symptoms Reported. Denies: Joint Pain, Back Pain, Joint Swelling Neurological: Reports: Pre-existing Deficit - BL BKA and sensory deficit of BL stumps Skin: Reports: No Symptoms Reported Endocrine: Reports: No Symptoms Reported - Vitals Vitals: Last Vital Signs Temp 36.6 C 11/29/19 04:00 Pulse 66 11/29/19 04:00 Resp 20 11/29/19 04:00 BP 145/94 H 11/29/19 04:00 Pulse Ox 95 11/29/19 04:00 - EKG/Xray Findings EKG: other - prolonged QT interval First degree heart block EKG read: Interp. by me - Exam Constitutional: Present: Alert, Oriented x3, Cooperative ENT Exam: Present: hearing grossly normal Neck: Present: full range of motion - of upper extremities Respiratory: Present: lungs clear, normal breath sounds, no respiratory distress, no accessory muscle use Cardiovascular/Chest: Present: regular rate, rhythm, no edema, no JVD, systolic murmur. Absent: normal peripheral pulses Abdomen: Present: Normal bowel sounds, soft, nontender, nondistended Extremity: Present: non-tender, other - BL BKA RT BKA bandage on, C/D/I. Skin Exam: Present: normal color, cool/dry - LEFT BKA STUMP Neurologic: Present: alert, oriented x 3 Appearance: Present: appropriate appearance, appropriate insight Eye contact: Present: cooperative Thoughts: Present: normal thought pattern Assessment/Plan Plan Narrative: Assessment/Plan: 54 year old M with poorly controlled Diabetes Mellitus Type II, admitted for Gangrene of his Right LE (Below the knee), now S/P Rt BKA. S/P Right BKA POD #5: Dr. Hernandez on board. - Pain medication by ortho. - Oxycodone for pain management Wide-complex rhythm with ventricular Pacemaker - Tachycardia resolved - Verapamil 180 mg PO Daily, - Coreg to 25 mg PO BID Poorly controlled diabetes mellitus: A1C> 12 - Blood Sugars well controlled - Lantus 20 units BID - Lispro 5 units TID with meals along with MDSS Poorly Controlled Hypertension - Now well controlled - Lisinopril 40 mg PO QD - Coreg 25 mg PO BID - Verapamil 180 mg PO QD, but this is more for wide complex tachycardia - HCTZ 25mg PO QAM. FEN: Consistent Carbs. CHARLENE diet DVT PPX: Aspirin 325 mg as per ortho recs. 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 - Awaiting placement. - Problems/Diagnosis (1) S/P BKA (below knee amputation) unilateral Problem: Acute Narrative: RIGHT BKA (2) Wide-complex tachycardia Problem: Resolved (3) Atherosclerosis of right lower extremity with gangrene Problem: Resolved Qualifiers: Peripheral atherosclerosis artery type: [place] artery Qualified Code(s): I70.261 - Atherosclerosis of [place] arteries of extremities with gangrene, right leg (4) MRSA (methicillin resistant staph aureus) culture positive Problem: Acute (5) Pacemaker Problem: Chronic (6) COPD (chronic obstructive pulmonary disease) Problem: Chronic Qualifiers: COPD type: chronic bronchitis Chronic bronchitis type: unspecified Qualified Code(s): J42 - Unspecified chronic bronchitis (7) Anxiety and depression Problem: Chronic (8) Polysubstance abuse Problem: Chronic (9) Chronic pain with drug dependence Problem: Chronic (10) Poorly controlled diabetes mellitus Problem: Chronic (11) Hypertension Problem: Chronic Qualifiers: Hypertension type: essential hypertension Qualified Code(s): I10 - Essential (primary) hypertension (12) CAD (coronary artery disease) Problem: Chronic Qualifiers: Coronary Disease-Associated Artery/Lesion type: [place] artery [place] vs. transplanted heart: [place] heart Associated angina: without angina Qualified Code(s): I25.10 - Atherosclerotic heart disease of [place] coronary artery without angina pectoris (13) Hx of BKA Problem: Chronic Qualifiers: Laterality: left Qualified Code(s): Z89.512 - Acquired absence of left leg below knee
[2019-11-29 07:24] LABS: Hematocrit 31.1 % (42.0-52.0); Hemoglobin 9.7 gm/dL (13.5-18.0); Mean Cell Volume 81.2 fl (78-100); Mean Corpuscular Hemoglobin 25.3 pg (27-31); Mean Corpuscular Hgb Conc 31.2 g/dl (32-36); Mean Platelet Volume 9.1 fl (8-11.3); Neutrophil # 6.9 K/mm3 (1.3-6.0); Platelet Count 327 K/mm3 (150-450); Red Blood Count 3.83 M/mm3 (4.7-6.0); Red Cell Distribution Width 14.7 % (11.5-14.0); White Blood Count 9.5 K/mm3 (4.0-10.5)
[2019-11-29] MEDS: INSULIN LISPRO 100 UNITS/ML VIAL SC SCH ×8 (07:25→21:34)
--- NOTE | 2019-11-29 07:39 | OR ---
Operative Report - Dictated Report Narrative: Date: 11/24/2019 Surgeon: Jimbo Hernandez M.D. Vacuum Caster: Rajiv Roblero PA-C provided a set of essential, skilled, educated hands that assisted in positioning, transfer, retraction, manipulation, irrigation, closure of wounds, and placement of dressings all of which could not be provided by the available surgical crew. Anesthesia: Spinal with local Preoperative diagnosis: Right foot gangrene Postoperative diagnosis: Right foot gangrene Procedure: Right below-knee amputation Estimated blood loss: Minimal Tourniquet time: 40 min at 300 mmHg Specimens: Lower leg and foot for gross pathology Drain: Hemovac x1 Complications: None Indications: Layla is a 54-year-old male uncontrolled diabetic who developed gangrene of his first and second toes with a deep infection of the foot after falling asleep with his foot to close to a propane heater. I recommended below knee amputation as a definitive treatment that would resolve the patient's infection and provide the best potential for wound healing. I discussed the risks of surgery with the patient including, but not limited to, persistent infection, wound complications, need for higher level amputation, phantom limb pain, and risks with anesthesia. Procedure: After a timeout, spinal anesthetic was performed without complication and antibiotic consisting of vancomycin and Zosyn were administered. A sandbag bump was placed under the operative hip and the operative leg was placed on a bone foam ramp. A well-padded tourniquet was applied to the operative thigh. The operative extremity was then prepped and draped in usual sterile fashion. The operative leg was exsanguinated with an Esmarch bandage and the tourniquet was inflated to 300 mmHg. Attention was turned to marking out our soft tissue flaps. A tong for anterior flap was made approximately 10 cm distal to the tibial tubercle. The anterior flap was marked out to an include two thirds of the total circumference and a longer posterior flap was marked out encompassing roughly one third of the overall circumference. This was incised ci rcumferentially with a sharp knife down to the level of the fascia. The fascia was incised and sharp dissection was carried out through the anterior compartment. The superficial and deep peroneal nerves were identified, injected with 1% lidocaine, and sharply divided with a knife under mild tension. The anterior tibial vessels were identified and ligated with a silk tie. The periosteum was elevated off the tibia and we made a tong for the bone cut at the appropriate level. The tibia was stripped of soft tissue circumferentially and 2 blunt Homans were placed. The tibial cut was then made with an oscillating saw. The anterior aspect was then beveled and the edges were smoothed. The fibula was then identified and stripped of its soft tissue circumferentially. Protecting the underlying soft tissues, the fibula was transected with an oscillating saw approximately 1 cm proximal to the level of our tibial cut. We then turned our attention to the posterior musculature. An amputation knife was used to bevel the posterior musculature to the appropriate length. The tibial nerve was identified, injected with 1% lidocaine, and sharply transected with a knife under mild tension. The posterior tibial vessels were identified and ligated with silk ties. At this point the tourniquet was let down and hemostasis was obtained with a combination of direct pressure and electrocautery. Any remaining bleeding vessels were ligated with silk ties. The wound was then copiously irrigated with normal saline. A submuscular hemovac drain was placed in the wound. A 2.0 mm drill bit was used to drill 4 holes through the anteromedial and anterolateral aspects of the tibia. #2 FiberWire was sewn through the posterior gastrocsoleus fascia in a [place] fashion. The free suture limbs were pulled through the drill holes and tied over the the anterior tibia to myodese the gastrocnemius and soleus fascia to the tibia creating a muscular pad underneath the cut end of the tibia. The anterior and posterior fascia was then approximated with a running barbed 0 PDS suture. The subcutaneous tissue and skin were then closed in a layered fashion with 3-0 Vicryl in an interrupted deep dermal fashion followed by nimo. The incision was dressed with Xeroform, 4 x 4's, ABD, soft roll, and an KAI wrap. Patient was then awoken and transferred to postanesthesia care in stable condition. All sponge, sharp, and instrument counts were correct prior to closing the wounds.
[2019-11-29 07:57] LABS: Albumin * 2.1 gm/dl (3.4-5.0); Anion Gap 10.5 mmol/L (6.8-13.8); BUN/Creatinine Ratio 42.4 (9.0-21.6); Bilirubin, Total 0.2 mg/dL (0.0-1.1); Ca. Corrected For Albumin 9.7 mg/dL (8.4-10.2); Calcium * 8.5 mg/dL (7.9-10.9); Carbon Dioxide 27.9 mmol/L (24-32.6); Potassium 4.4 mmol/L (3.4-4.6); Total Protein 6.7 gm/dL (6.2-8.2)
[2019-11-29] MEDS: VERAPAMIL HCL 120 MG TABLET.SA PO SCH (10:00)
[2019-11-29] MEDS: ASPIRIN 325 MG TABLET.DR PO SCH (10:00)
[2019-11-29] MEDS: CARVEDILOL 25 MG TABLET PO SCH ×2 (10:01→21:35)
[2019-11-29] MEDS: INSULIN GLARGINE,HUM.REC.ANLOG 100 UNITS/ML VIAL SC SCH ×2 (10:01→21:36)
[2019-11-29] MEDS: LISINOPRIL 40 MG TABLET PO SCH (10:01)
[2019-11-29] MEDS: HYDROCHLOROTHIAZIDE 12.5 MG CAPSULE PO SCH (12:22)
[2019-11-29] MEDS: SENNOSIDES/DOCUSATE SODIUM 1 TAB TABLET PO SCH (21:35)
[2019-11-30] MEDS: oxyCODONE HCL 5 MG TABLET PO PRN ×2 (01:04→06:57)
[2019-11-30] MEDS: ALBUTEROL SULFATE/IPRATROPIUM 3 ML NEBU IH SCH ×2 (02:39→06:05)
[2019-11-30] MEDS: CEPHALEXIN MONOHYDRATE 500 MG CAPSULE PO SCH (04:27)
[2019-11-30] MEDS: BUDESONIDE 0.25 MG/2 ML VIAL.NEB IH SCH (06:06)
[2019-11-30] MEDS: FORMOTEROL FUMARATE 20 MCG/2 ML VIAL IH SCH (06:06)
[2019-11-30] MEDS: INSULIN LISPRO 100 UNITS/ML VIAL SC SCH ×2 (06:54→08:13)
--- NOTE | 2019-11-30 07:21 | PN ---
Subjective - Date and Time Seen Date: 11/30/19 Time: 07:21 Objective - Vitals Vitals: Last Vital Signs Temp 37.0 C 11/30/19 06:29 Pulse 74 11/30/19 06:29 Resp 16 11/30/19 06:29 BP 131/63 11/30/19 06:29 Pulse Ox 98 11/30/19 06:29 - Abnormal Lab Findings Abnormal Lab Findings: Abnormal Lab Results 11/29/19 11/29/19 Range/Units 07:16 07:16 RBC 3.83 L (4.7-6.0) M/mm3 Hgb 9.7 L (13.5-18.0) gm/dL Hct 31.1 L (42.0-52.0) % MCH 25.3 L (27-31) pg MCHC 31.2 L (32-36) g/dl RDW 14.7 H (11.5-14.0) % Immature Gran % (Auto) 0.70 H (0.001-0.429) % Immature Gran # (Auto) 0.07 H (0.000-0.0310) K/mm3 Lymphocytes % 14.1 L (20-51) % Monocytes % 11.0 H (0.0-9) % Neutrophils # 6.9 H (1.3-6.0) K/mm3 Lymphocytes # 1.34 L (1.5-3.5) k/mm3 Monocytes # 1.1 H (0.0-1.0) k/mm3 BUN 36 H (6-23) mg/dL BUN/Creatinine Ratio 42.4 H (9.0-21.6) Random Glucose 206 H D (70-110) mg/dL Alkaline Phosphatase 357 H (50-170) U/L Albumin 2.1 L (3.4-5.0) gm/dl Assessment/Plan - Problems/Diagnosis (1) S/P BKA (below knee amputation) unilateral Problem: Acute (2) Wide-complex tachycardia Problem: Resolved (3) Atherosclerosis of right lower extremity with gangrene Problem: Resolved Qualifiers: Peripheral atherosclerosis artery type: [place] artery Qualified Code(s): I70.261 - Atherosclerosis of [place] arteries of extremities with gangrene, right leg (4) MRSA (methicillin resistant staph aureus) culture positive Problem: Acute (5) Pacemaker Problem: Chronic (6) COPD (chronic obstructive pulmonary disease) Problem: Chronic Qualifiers: COPD type: chronic bronchitis Chronic bronchitis type: unspecified Qualified Code(s): J42 - Unspecified chronic bronchitis (7) Anxiety and depression Problem: Chronic (8) Polysubstance abuse Problem: Chronic (9) Chronic pain with drug dependence Problem: Chronic (10) Poorly controlled diabetes mellitus Problem: Chronic (11) Hypertension Problem: Chronic Qualifiers: Hypertension type: essential hypertension Qualified Code(s): I10 - Essential (primary) hypertension (12) CAD (coronary artery disease) Problem: Chronic Qualifiers: Coronary Disease-Associated Artery/Lesion type: [place] artery [place] vs. transplanted heart: [place] heart Associated angina: without angina Qualified Code(s): I25.10 - Atherosclerotic heart disease of [place] coronary artery without angina pectoris (13) Hx of BKA Problem: Chronic Qualifiers: Laterality: left Qualified Code(s): Z89.512 - Acquired absence of left leg below knee
--- NOTE | 2019-11-30 07:29 | DS ---
(1) S/P BKA (below knee amputation) unilateral Problem: Acute (2) Wide-complex tachycardia Problem: Resolved (3) Atherosclerosis of right lower extremity with gangrene Problem: Resolved Qualifiers: Peripheral atherosclerosis artery type: [place] artery Qualified Code(s): I70.261 - Atherosclerosis of [place] arteries of extremities with gangrene, right leg (4) MRSA (methicillin resistant staph aureus) culture positive Problem: Acute (5) Pacemaker Problem: Chronic (6) COPD (chronic obstructive pulmonary disease) Problem: Chronic Qualifiers: COPD type: chronic bronchitis Chronic bronchitis type: unspecified Qualified Code(s): J42 - Unspecified chronic bronchitis (7) Anxiety and depression Problem: Chronic (8) Polysubstance abuse Problem: Chronic (9) Chronic pain with drug dependence Problem: Chronic (10) Poorly controlled diabetes mellitus Problem: Chronic (11) Hypertension Problem: Chronic Qualifiers: Hypertension type: essential hypertension Qualified Code(s): I10 - Essential (primary) hypertension (12) CAD (coronary artery disease) Problem: Chronic Qualifiers: Coronary Disease-Associated Artery/Lesion type: [place] artery [place] vs. transplanted heart: [place] heart Associated angina: without angina Qualified Code(s): I25.10 - Atherosclerotic heart disease of [place] coronary artery without angina pectoris (13) Hx of BKA Problem: Chronic Qualifiers: Laterality: left Qualified Code(s): Z89.512 - Acquired absence of left leg below knee Date of Discharge:: 11/30/19 Hospital Course: 54 year old male medical history of poorly controlled diabetes mellitus status post left BKA, myocardial infarction with ventricular pacemaker,congestive heart failure status post aortic valve replacement, poorly controlled hypertension, COPD secondary to tobacco abuse, , substance abuse, hepatitis C anxiety and major depressive disorder presented to the ER with right foot pain progressively getting worse after leaving AMA the previous day. Patient has been diagnosed with gangrene of the right lower extremity and osteomyelitis on previous hospitalization and recommendations were right BKA. Patient's left because he did not want to lose his right leg. However the pain is progressively getting worse associated with purulent drainage of the medial aspect of the right foot and gangrene of the big toe and second toe of the right foot. Pain is rated 9 out of 10 rating up to his knee. Symptoms are aggravated by activity and weight bearing. No known alleviating. Pain previously treated with ibuprofen however patient states he does not see any symptom relief. Patient got admitted in agreement to proceeding with previously discussed surgical plan with Dr. Campbell. To better consulted in the ER for right BKA in a.m. Patient is MRSA positive treated with vancomycin 48 hours postop. Right BKA completed on November 24, without any further complications. Comycin continued 24 hours postop and transition to Keflex. Pain managed by Ortho. Initially received Dilaudid and morphine. Transitioned to p.o. Dilaudid then Oxy then to lower dose of [place]. A1c of admission is 12.1. Sugars poorly controlled. Hospitalization tight glycemic control achieved with Lantus 20 units twice daily and 5 units 3 times daily with meals. Initially hard to control hypertension and wide-complex tachycardia with ventricular pacemaker. Started on Coreg and optimize dose with minimal improvement followed by Cardizem 180 mg p.o. daily which resolved wide-complex tachycardia. In regards to blood pressure started on lisinopril 40 mg with minimal improvement followed by hydrochlorothiazide 25 mg and blood pressure became well controlled. Patient tolerated physical therapy well and has good upper body strength and can wheel himself. Patient is status post right BKA postop day #5, he is stable for discharge. Will discharge with Keflex and pain medication until his follow-up appointment with Ortho on December 04, 2018, will also schedule hospital follow-up with Dr. Hartley. Patient does not have a PCP. Will discharge patient with appropriate medication for blood pressure and diabetes. Patient encouraged to get assistance in filing for disability and Medicare.. Patient also advised medication can be obtained at our cheaper cost at [facility] in [facility]. Procedures Performed: see notes below List Procedures: Is post right BKA postop day #5 Care Plan Goals: Tight glycemic control Proper wound care Compliance with medication and follow-up appointments Seek assistance to apply for Medicare and disability. Plan of Treatment: Keflex p.o. twice daily times 4 days inf insulin 5 units 3 times daily prophylaxis Lantus 20 units twice daily Insulin 5 units 3 times daily with meals Coreg 25 mg p.o. twice daily Cardizem 180 mg p.o. daily Lisinopril/hydrochlorothiazide 20/25 milligrams p.o. daily Pain medication for 5 days to follow-up with Ortho. Health Concerns: Noncompliance with medication Poor literacy rate Homeless Polysubstance abuse Assessment: 54-year-old male with poorly controlled insulin-dependent diabetes mellitus type 2 admitted for right BKA. She is now status post right BKA postop day #5. Results and Findings: Lab Pending Results 11/22/19 17:25: WBC 7.0, RBC 4.76, Hgb 12.2 L, Hct 38.1 L, MCV 80.0, MCH 25.6 L, MCHC 32.0, RDW 14.5 H, Plt Count 296, MPV 9.6, Immature Gran % (Auto) 0.40, Immature Gran # (Auto) 0.03, Neutrophils % 77.7 H, Lymphocytes % 11.1 L, Monocytes % 8.7, Eosinophils % 1.4, Basophils % 0.7, Nucleated RBC % 0.0, Neutrophils # 5.5, Lymphocytes # 0.78 L, Monocytes # 0.6, Eosinophils # 0.1, Absolute Basophils 0.1 11/22/19 17:25: Sodium 135, Plasma Sodium 139, Potassium 3.8, Chloride 99, Carbon Dioxide 28.5, Anion Gap 11.3, BUN 17, Creatinine 0.73, Est GFR (Non-Af Amer) 119, BUN/Creatinine Ratio 23.3 H, Random Glucose 332 H D, Calcium 8.9, Calcium Adj for Albumin 10.0, Total Bilirubin 0.3, AST 20, ALT 28, Alkaline Phosphatase 120, C-Reactive Prot, Quant 6.0 H, Total Protein 7.0, Albumin 2.2 L 11/22/19 17:25: ESR 97 H 11/23/19 07:35: WBC 8.2, RBC 4.49 L, Hgb 11.6 L, Hct 36.1 L, MCV 80.4, MCH 25.8 L, MCHC 32.1, RDW 14.5 H, Plt Count 259, MPV 9.6, Immature Gran % (Auto) 0.50 H, Immature Gran # (Auto) 0.04 H, Neutrophils % 76.0 H, Lymphocytes % 11.1 L, Monocytes % 9.3 H, Eosinophils % 2.4, Basophils % 0.7, Nucleated RBC % 0.0, Neutrophils # 6.2 H, Lymphocytes # 0.91 L, Monocytes # 0.8, Eosinophils # 0.2, Absolute Basophils 0.1 11/23/19 07:35: Sodium 137, Plasma Sodium 140, Potassium 4.0, Chloride 101, Carbon Dioxide 28.2, Anion Gap 11.8, BUN 18, Creatinine 0.74, Est GFR (Non-Af Amer) 117, BUN/Creatinine Ratio 24.3 H, Random Glucose 266 H, Calcium 8.6, Calcium Adj for Albumin 9.8, Total Bilirubin 0.3, AST 17, ALT 32, Alkaline Phosphatase 104, Total Protein 6.7, Albumin 2.1 L 11/23/19 08:12: Lactic Acid, Venous 0.6 11/25/19 06:20: WBC 11.0 H D, RBC 4.12 L, Hgb 10.6 L, Hct 33.3 L, MCV 80.8, MCH 25.7 L, MCHC 31.8 L, RDW 14.5 H, Plt Count 287, MPV 9.2, Immature Gran % (Auto) 0.40, Immature Gran # (Auto) 0.04 H, Neutrophils % 79.1 H, Lymphocytes % 10.1 L, Monocytes % 9.5 H, Eosinophils % 0.4, Basophils % 0.5, Nucleated RBC % 0.0, Neutrophils # 8.7 H, Lymphocytes # 1.11 L, Monocytes # 1.1 H, Eosinophils # 0.0, Absolute Basophils 0.1 11/25/19 06:20: Sodium 136, Plasma Sodium 138, Potassium 3.7, Chloride 102, Carbon Dioxide 23.9 L, Anion Gap 13.8, BUN 18, Creatinine 0.78, Est GFR (Non-Af Amer) 110, BUN/Creatinine Ratio 23.1 H, Random Glucose 236 H, Calcium 8.3, Calcium Adj for Albumin 9.4, Total Bilirubin 0.4, AST 21, ALT 25, Alkaline Phosphatase 144, Total Protein 6.8, Albumin 2.2 L 11/25/19 06:20: Lactic Acid, Venous 1.4 11/26/19 05:00: WBC 10.2, RBC 4.01 L, Hgb 10.0 L, Hct 32.0 L, MCV 79.8, MCH 24.9 L, MCHC 31.3 L, RDW 14.6 H, Plt Count 300, MPV 9.1, Immature Gran % (Auto) 0.30, Immature Gran # (Auto) 0.03, Neutrophils % 73.3, Lymphocytes % 12.8 L, Monocytes % 11.5 H, Eosinophils % 1.5, Basophils % 0.6, Nucleated RBC % 0.0, Neutrophils # 7.5 H, Lymphocytes # 1.31 L, Monocytes # 1.2 H, Eosinophils # 0.2, Absolute Basophils 0.1 11/26/19 05:00: Sodium 133, Plasma Sodium 133, Potassium 3.8, Chloride 100, Carbon Dioxide 24.1, Anion Gap 12.7, BUN 24 H, Creatinine 0.68, Est GFR (Non-Af Amer) 129, BUN/Creatinine Ratio 35.3 H, Random Glucose 123 H D, Calcium 8.7, Calcium Adj for Albumin 9.8, Total Bilirubin 0.3, AST 20, ALT 24, Alkaline Phosphatase 141, Total Protein 6.7, Albumin 2.2 L 11/27/19 05:25: WBC 8.7, RBC 3.83 L, Hgb 9.7 L, Hct 30.7 L, MCV 80.2, MCH 25.3 L, MCHC 31.6 L, RDW 14.7 H, Plt Count 288, MPV 9.6, Immature Gran % (Auto) 0.50 H, Immature Gran # (Auto) 0.04 H, Neutrophils % 71.5, Lymphocytes % 16.6 L, Monocytes % 9.8 H, Eosinophils % 1.0, Basophils % 0.6, Nucleated RBC % 0.0, Neutrophils # 6.2 H, Lymphocytes # 1.44 L, Monocytes # 0.9, Eosinophils # 0.1, Absolute Basophils 0.1 11/27/19 05:25: Sodium 132, Plasma Sodium 133, Potassium 3.8, Chloride 99, Carbon Dioxide 25.4, Anion Gap 11.4, BUN 28 H, Creatinine 0.85, Est GFR (Non-Af Amer) 100 D, BUN/Creatinine Ratio 32.9 H, Random Glucose 174 H D, Calcium 8.4, Calcium Adj for Albumin 9.7, Total Bilirubin 0.2, AST 21, ALT 26, Alkaline Phosphatase 202 H, Total Protein 6.5, Albumin 2.0 L 11/27/19 05:25: Mean Blood Glucose 337, Hemoglobin A1c 12.7 H 11/28/19 05:25: WBC 7.6, RBC 3.81 L, Hgb 9.5 L, Hct 30.4 L, MCV 79.8, MCH 24.9 L, MCHC 31.3 L, RDW 14.6 H, Plt Count 314, MPV 9.6, Immature Gran % (Auto) 0.50 H, Immature Gran # (Auto) 0.04 H, Neutrophils % 65.6, Lymphocytes % 19.4 L, Monocytes % 12.3 H, Eosinophils % 1.3, Basophils % 0.9, Nucleated RBC % 0.0, Neutrophils # 5.0, Lymphocytes # 1.47 L, Monocytes # 0.9, Eosinophils # 0.1, Ab solute Basophils 0.1 11/28/19 05:25: Sodium 135, Plasma Sodium 135, Potassium 4.2, Chloride 100, Carbon Dioxide 26.2, Anion Gap 13.0, BUN 36 H, Creatinine 0.84, Est GFR (Non-Af Amer) 101, BUN/Creatinine Ratio 42.9 H, Random Glucose 100 D, Calcium 8.4, Calcium Adj for Albumin 9.8, Total Bilirubin 0.2, AST 22, ALT 30, Alkaline Phosphatase 235 H, Total Protein 6.5, Albumin 1.9 L 11/29/19 07:16: WBC 9.5 D, RBC 3.83 L, Hgb 9.7 L, Hct 31.1 L, MCV 81.2, MCH 25.3 L, MCHC 31.2 L, RDW 14.7 H, Plt Count 327, MPV 9.1, Immature Gran % (Auto) 0.70 H, Immature Gran # (Auto) 0.07 H, Neutrophils % 73.0, Lymphocytes % 14.1 L, Monocytes % 11.0 H, Eosinophils % 0.6, Basophils % 0.6, Nucleated RBC % 0.0, Neutrophils # 6.9 H, Lymphocytes # 1.34 L, Monocytes # 1.1 H, Eosinophils # 0.1, Absolute Basophils 0.1 11/29/19 07:16: Sodium 135, Plasma Sodium 137, Potassium 4.4, Chloride 101, Carbon Dioxide 27.9, Anion Gap 10.5, BUN 36 H, Creatinine 0.85, Est GFR (Non-Af Amer) 100, BUN/Creatinine Ratio 42.4 H, Random Glucose 206 H D, Calcium 8.5, Calcium Adj for Albumin 9.7, Total Bilirubin 0.2, AST 26, ALT 43, Alkaline Phosphatase 357 H, Total Protein 6.7, Albumin 2.1 L Discharge Location: Home Disposition: Home self-care Condition: Stable Discharge Activity: Activity as tolerated Discharge Diet: Consistent carbs Fdc Therapy: Physical Therapy Referrals: Jimbo Hernandez MD [Staff Physician] - (12/05/19 Postop follow-up for right BKA) Guero Hartley MD [Staff Physician] - One Week (Hospital follow-up for right BKA.) Consultation Done:: Orthopedics - Dr. Hernandez Additional Patient Instructions (free text): Follow up with Dr Hernandez 12/05/2019 @ 1:15 pm and 12/14/2019 @ 1:15 pm. Complete Home Medications List: Complete Home Medication List: Aspirin 325 mg PO DAILY #30 tab 11/30/19 Blood Sugar Diagnostic [Glucose Test Strip] 1 ea MC QID #120 strip 11/30/19 Blood-Glucose Meter [Blood Glucose Meter] 1 MC TID #1 ea 11/30/19 Carvedilol [Coreg] 12.5 mg PO BID #60 tab 11/30/19 Cephalexin 500 mg PO Q6H #24 tab 11/30/19 Furosemide [Lasix] 20 mg PO QDIPM #30 tab 11/30/19 Insulin Aspart [Insulin Aspart Flexpen] 5 unit SQ TID #1 insuln.pen 11/30/19 Insulin Glargine,Hum.rec.anlog [Lantus Solostar] 20 unit SQ BID #1 insuln.pen 11/30/19 Lisinopril/Hydrochlorothiazide [Lisinopril-Hctz 20-25 mg Tab] 1 ea PO QAM #30 tab 11/30/19 [place], Disposable [Hypodermic Needle] 1 ea MC 5XD #150 dis.needle 11/30/19 oxyCODONE HCL [Oxycodone] 5 mg PO Q8H PRN #17 tab 11/30/19
--- NOTE | 2019-11-30 08:16 | PN ---
Bautista Note - Interim Date: 11/30/19 Time: 08:13 Narrative: Patient appears in still mild pain. He notes his leg is still significantly tender. He notes he is tired. Exam reveals RLE--> is clean/dry/intact, diffuse tenderness to stump, no significant drainage through dressings, sensation intact light touch, due to pain patient unable to perform active range of motion. Plan for patient to be discharged home using his wheelchair today. Continue with the following recommendations: -Range of motion as tolerated right lower extremity -Leave dressings in place until orthopedic follow-up at 1 week, in orthopedic outpatient clinic -DVT prophylaxis 325 mg aspirin daily -Chronic medical conditions per medicine team -Pain medication: Oxycodone 5 mg tablets take 1-3 every 4 hours PRN for pain p.o. -Disposition: Plan to discharge home with orthopedic outpatient follow-up 11/30/19 08:13
[2019-11-30 08:56] VITALS: BP 155/82
[2019-11-30] MEDS ORDERED: FUROSEMIDE 20 MG TABLET PO SCH (11:00)
== END 2019-11-30 09:08 | disposition home or self-care (01) | DRG 240 ==
LOC: ER 15:58 → MS 17:39
PROVIDERS: ADMIT Family Medicine; ATTEND Family Medicine
DX: I10 Essential (primary) hypertension; I70.261 Atherosclerosis of native arteries of extremities with gangrene, right leg; M86.171 Other acute osteomyelitis, right ankle and foot; B18.2 Chronic viral hepatitis C; I25.10 Atherosclerotic heart disease of native coronary artery without angina pectoris; Z95.0 Presence of cardiac pacemaker; F41.8 Other specified anxiety disorders; Z89.512 Acquired absence of left leg below knee; F19.20 Other psychoactive substance dependence, uncomplicated; J42 Unspecified chronic bronchitis; B95.62 Methicillin resistant Staphylococcus aureus infection as the cause of diseases classified elsewhere; E11.52 Type 2 diabetes mellitus with diabetic peripheral angiopathy with gangrene; F17.210 Nicotine dependence, cigarettes, uncomplicated; G89.29 Other chronic pain; E11.65 Type 2 diabetes mellitus with hyperglycemia; I47.2 Ventricular tachycardia
CPT/HCPCS: 36415; 71010; 71045; 80053; 83036; 83605; 85025; 85652; 86140; 87040; 87081; 87086; 88307; 88888; 93005; 94640; 97110; 97161; 97165; 97530; 97535; 99282; J2405

== ENCOUNTER 2019-12-07 04:57 | Inpatient (IN) ==
--- NOTE | 2019-12-07 05:06 | ERNOTE ---
Dyspnea - General Presenting Symptoms: shortness of breath Time Seen by Provider: 12/07/19 05:01 Source: patient Exam Limitations: no limitations - Immun/Allergies/Home Medications Immunizations: IMMUNIZATION HX Immunizations Up to Date Yes History of Influenza Vaccine No Hx Pneumococcal Vaccination No Allergies/Adverse Reactions: Allergies naproxen Adverse Reaction (Severe, Verified 12/07/19 05:05) Difficulty breathing topiramate [From Topamax] Adverse Reaction (Severe, Verified 12/07/19 05:05) Tachycardia acetaminophen [From Tylenol] Adverse Reaction (Verified 12/07/19 05:05) Other upset stomach, d/t cirrosis Home Medications: HOME MEDICATIONS Aspirin 325 mg PO DAILY #30 tab 11/30/19 [Last Taken Unknown] Blood Sugar Diagnostic [Glucose Test Strip] 1 MC QID #120 strip 11/30/19 [Last Taken Unknown] Blood-Glucose Meter [Blood Glucose Meter] 1 MC TID #1 ea 11/30/19 [Last Taken Unknown] Carvedilol [Coreg] 12.5 mg PO BID #60 tab 11/30/19 [Last Taken Unknown] Cephalexin 500 mg PO Q6H #24 tab 11/30/19 [Last Taken Unknown] Furosemide [Lasix] 20 mg PO QDIPM #30 tab 11/30/19 [Last Taken Unknown] Insulin Aspart [Insulin Aspart Flexpen] 5 unit SQ TID #1 insuln.pen 11/30/19 [Last Taken Unknown] Insulin Glargine,Hum.rec.anlog [Lantus Solostar] 20 unit SQ BID #1 insuln.pen 11/30/19 [Last Taken Unknown] Lisinopril/Hydrochlorothiazide [Lisinopril-Hctz 20-25 mg Tab] 1 ea PO QAM #30 tab 11/30/19 [Last Taken Unknown] [place], Disposable [Hypodermic Needle] 1 [facility] 5XD #150 dis.needle 11/30/19 [Last Taken Unknown] oxyCODONE HCL [Oxycodone] 5 mg PO Q8H PRN #17 tab 11/30/19 [Last Taken Unknown] Oxycodone HCl 5 mg PO QID #16 cap 12/03/19 [Last Taken Unknown] - History of Present Illness Narrative: Patient states he had increasing shortness of breath starting about 6 hours ago. He called EMS, they began albuterol treatment when they picked him up which did not change her symptoms much Severity: moderate Treatment REGISTERED NURSES: paramedics, aspirin Review of Systems - Review of Systems Constitutional: Absent: recent illness, fever, chills ENT: Absent: nose congestion, nasal drainage Respiratory: Present: See HPI, shortness of breath, cough Cardiology: Present: chest pain, palpitations Gastrointestinal/Abdominal: Present: nausea Musculoskeletal: Present: other - Pain from right BKA. Skin: Absent: rash, change in color Hematologic/Lymphatic: Absent: easy bruising, easy bleeding Medical History (Last Reviewed 12/07/19 @ 07:12 by Yovany Mitchell DO) Diabetes mellitus type 2 with complications, uncontrolled (Chronic) COPD (chronic obstructive pulmonary disease) (Chronic) Anxiety and depression (Chronic) Polysubstance abuse (Chronic) Chronic pain with drug dependence (Chronic) Osteomyelitis of foot (Resolved) Poorly controlled diabetes mellitus (Chronic) Aortic stenosis (Chronic) Hepatitis C (Chronic) CAD (coronary artery disease) (Chronic) Acute [place] (Acute) Abnormal liver function test Onset Date: Unknown Anxiety Aortic stenosis Arthritis Lymphoma Tobacco abuse Onset Date: Unknown Surgical History: Surgical History (Last Reviewed 12/07/19 @ 07:12 by Yovany Mitchell DO) Amputated below knee H/O heart artery stent History of thoracentesis Onset Date: Unknown fluid removed from chest/breast area History of transmetatarsal amputation of left foot Onset Date: 01/2018 Pacemaker S/P TAVR (transcatheter aortic valve replacement) Family History: Family History (Last Reviewed 12/07/19 @ 07:12 by Yovany Mitchell DO) Other No pertinent family history Social History: (Last Reviewed 12/07/19 @ 07:12 by Yovany Mitchell DO) Social History: Marital status: Single household members: other 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[employer], 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, 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 Service: No Tobacco: Smoking Status: Current every day smoker tobacco type: cigarettes Smoking cigarettes per day: 4 Alcohol: alcohol intake: former Substance Use: substance use type: marijuana, methamphetamine, opiates Dietary Habits: caffeine: No Physical Exam - Physical Exam General Appearance: Present: wd/wn, alert, mild distress Head Exam: Present: normal inspection, no evidence of injury Ears, Nose, Throat: Present: normal ENT inspection Neck: Present: normal inspection, nontender, supple Respiratory: Present: no accessory muscle use, rhonchi, wheezing Cardiovascular/Chest: Present: regular rate, rhythm, no murmur Gastrointestinal/Abdominal: Present: normal bowel sounds, nontender, nondistended, soft Back Exam: Present: normal inspection, normal range of motion Extremity Exam: Present: normal except - - bilateral BKA- right done recently Neurological Exam: Present: alert, oriented, normal mood/affect Skin Exam: Present: normal color, warm/dry, other - Recent right BKA wound still has nimo intact. Good approximation, no erythema, no drainage, no gapping Progress - Results and Orders Patient's Lab Results:: I have reviewed the patient's lab results. Results and Orders: Laboratory Tests 12/07/19 12/07/19 05:13 05:13 WBC 11.3 H Hgb 10.2 L Hct 33.1 L Plt Count 351 Neutrophils % 82.6 H Sodium 134 Potassium 3.8 Chloride 98 Carbon Dioxide 25.9 Anion Gap 13.9 H BUN 22 Creatinine 0.77 Random Glucose 351 H Calcium 8.3 Total Bilirubin 0.6 AST 20 ALT 36 Alkaline Phosphatase 292 H Troponin I 0.065 B-Natriuretic Peptide 46919 H - Vital Signs Patient's Vital Signs:: I have reviewed the patient's vital signs. - EKG EKG #1 EKG read: Interp. by me - Ventricular pacemaker - X-Ray X-Ray #1 X-Ray: chest Interpretation: Interp. by me X-ray Comments: Mild pulmonary edema, pacemaker in place in the left chest, leads appear to be in good placement. Mild cardiomegaly, stable - Progress/Reassessment Progress:: Improved Progress Note-Subjective: 12/07/19 07:[address] Rm she agrees to admission. I did message Dr. Hernandez about the patient being admitted to the hospital as he did BKA on the patient 2 weeks ago Departure Clinical Impression: Acute exacerbation of chronic obstructive pulmonary disease (COPD), Hyperglycemia due to type 1 diabetes mellitus CHF (congestive heart failure) Qualifiers: Heart failure type: combined systolic and diastolic Heart failure chronicity: acute on chronic Qualified Code(s): I50.43 - Acute on chronic combined systolic (congestive) and diastolic (congestive) heart failure - Departure Disposition: Still a patient Condition: Stable
[2019-12-07 05:15] LABS: Hematocrit 33.1 % (42.0-52.0); Hemoglobin 10.2 gm/dL (13.5-18.0); Mean Cell Volume 80.7 fl (78-100); Mean Corpuscular Hemoglobin 24.9 pg (27-31); Mean Corpuscular Hgb Conc 30.8 g/dl (32-36); Mean Platelet Volume 8.9 fl (8-11.3); Neutrophil # 9.3 K/mm3 (1.3-6.0); Neutrophil % 82.6 % (42-75.0); Platelet Count 351 K/mm3 (150-450); Red Cell Distribution Width 15.6 % (11.5-14.0); White Blood Count 11.3 K/mm3 (4.0-10.5)
[2019-12-07] MEDS ORDERED: METHYLPREDNISOLONE SOD SUCC/PF 125 MG/2 ML VIAL IV ONE (05:34)
[2019-12-07] MEDS ORDERED: ALBUTEROL SULFATE/IPRATROPIUM 3 ML NEBU IH ONE (05:34)
[2019-12-07] MEDS ORDERED: hydrALAZINE HCL 20 MG/ML VIAL IV ONE (05:34)
[2019-12-07 05:35] LABS: Albumin * 2.3 gm/dl (3.4-5.0); Anion Gap 13.9 mmol/L (6.8-13.8); BUN/Creatinine Ratio 28.6 (9.0-21.6); Bilirubin, Total 0.6 mg/dL (0.0-1.1); Ca. Corrected For Albumin 9.3 mg/dL (8.4-10.2); Calcium * 8.3 mg/dL (7.9-10.9); Carbon Dioxide 25.9 mmol/L (24-32.6); Potassium 3.8 mmol/L (3.4-4.6); Total Protein 6.9 gm/dL (6.2-8.2)
[2019-12-07 05:36] LABS: Troponin I 0.065 ng/mL (0.00-0.10)
[2019-12-07] MEDS ORDERED: FUROSEMIDE 10 MG/ML VIAL IV ONE (05:40)
[2019-12-07] MEDS ORDERED: oxyCODONE HCL 5 MG TABLET PO ONE (06:48)
[2019-12-07] MEDS ORDERED: HYDROCHLOROTHIAZIDE 25 MG TABLET PO SCH (09:00)
[2019-12-07] MEDS ORDERED: NON-FORMULARY 1 DOSE DOSE (Lisinopril/Hydrochlorothiazide [Lisinopril-Hctz 20-25 Mg Tab] 1 PO SCH (09:00)
[2019-12-07] MEDS ORDERED: CARVEDILOL 12.5 MG TABLET PO SCH (09:00)
[2019-12-07] MEDS ORDERED: LISINOPRIL 20 MG TABLET PO SCH (09:00)
[2019-12-07] MEDS ORDERED: INSULIN GLARGINE,HUM.REC.ANLOG 100 UNITS/ML VIAL SC SCH (09:00)
[2019-12-07] MEDS: INSULIN LISPRO 100 UNITS/ML VIAL SC SCH ×2 (09:48→12:19)
[2019-12-07] MEDS ORDERED: oxyCODONE HCL 5 MG TABLET PO PRN (09:53)
--- NOTE | 2019-12-07 12:11 | HP ---
Chief Complaint - Chief Complaint Date of Service: 12/07/19 Time of Service: 09:25 Chief Complaint: Shortness of breath for 1 day History of Present Illness: 54-year-old male with a past medical history of anxiety and depression, aortic stenosis, arthritis, coronary artery disease, chronic pain with drug dependence, COPD, tobacco abuse, diabetes mellitus type 2 poorly controlled, hepatitis C, lymphoma, polysubstance abuse, osteomyelitis of foot presents from home with complaints of shortness of breath for the past 1 day. Symptoms associated with productive cough with purulent sputum and chills. He was brought to the emergency department by EMS and chest x-ray was positive for bilateral pleural effusions, left larger than right. He was found to be tachypneic and hypertensive with blood pressure of 205/110. He is known to be noncompliant with his medications and was only taking oxycodone and cephalexin. He had been admitted about a week ago with gangrene of his right lower extremity and underwent a right BKA. He was discharged and asked to follow-up with orthopedics this week but he missed that follow-up appointment. Medical History (Last Reviewed 12/07/19 @ 07:30 by Rosibel Platt RN) Diabetes mellitus type 2 with complications, uncontrolled (Chronic) COPD (chronic obstructive pulmonary disease) (Chronic) Anxiety and depression (Chronic) Polysubstance abuse (Chronic) Chronic pain with drug dependence (Chronic) Osteomyelitis of foot (Resolved) Poorly controlled diabetes mellitus (Chronic) Aortic stenosis (Chronic) Hepatitis C (Chronic) CAD (coronary artery disease) (Chronic) Acute [place] (Acute) Abnormal liver function test Onset Date: Unknown Anxiety Aortic stenosis Arthritis Lymphoma Tobacco abuse Onset Date: Unknown Surgical History: Surgical History (Last Reviewed 12/07/19 @ 07:30 by Rosibel Platt RN) Amputated below knee H/O heart artery stent History of thoracentesis Onset Date: Unknown fluid removed from chest/breast area History of transmetatarsal amputation of left foot Onset Date: 01/2018 Pacemaker S/P TAVR (transcatheter aortic valve replacement) Family History: Family History (Last Reviewed 12/07/19 @ 07:30 by Rosibel Platt RN) Other No pertinent family history Social History: (Last Reviewed 12/07/19 @ 07:30 by Rosibel Giulia, RN) Social History: Marital status: Single household members: other 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 Absent: Fever EENTM: Absent: Eye Pain Respiratory: Present: Cough - productive of brown/mcdonald sputum, Shortness of Breath Cardiac: Absent: Chest Pain Abdominal: Absent: Abdominal Pain Musculoskeletal: Present: Joint Pain - right leg Misc: All systems neg except as marked Immunizations: IMMUNIZATION HX Immunizations Up to Date Yes History of Influenza Vaccine No Hx Pneumococcal Vaccination No Allergies/Adverse Reactions: Allergies Allergy/AdvReac Type Severity Reaction Status Date / Time naproxen AdvReac Severe Verified 12/07/19 07:30 topiramate [From Topamax] AdvReac Severe Verified 12/07/19 07:30 acetaminophen [From Tylenol] AdvReac Other Verified 12/07/19 07:30 Home Medications: HOME MEDICATIONS Aspirin 325 mg PO DAILY #30 tab 11/30/19 [Last Taken Unknown] Blood Sugar Diagnostic [Glucose Test Strip] 1 MC QID #120 strip 11/30/19 [Last Taken Unknown] Blood-Glucose Meter [Blood Glucose Meter] 1 MC TID #1 ea 11/30/19 [Last Taken Unknown] Carvedilol [Coreg] 12.5 mg PO BID #60 tab 11/30/19 [Last Taken Unknown] Cephalexin 500 mg PO Q6H #24 tab 11/30/19 [Last Taken Unknown] Furosemide [Lasix] 20 mg PO QDIPM #30 tab 11/30/19 [Last Taken Unknown] Insulin Aspart [Insulin Aspart Flexpen] 5 unit SQ TID #1 insuln.pen 11/30/19 [Last Taken Unknown] Insulin Glargine,Hum.rec.anlog [Lantus Solostar] 20 unit SQ BID #1 insuln.pen 11/30/19 [Last Taken Unknown] Lisinopril/Hydrochlorothiazide [Lisinopril-Hctz 20-25 mg Tab] 1 ea PO QAM #30 tab 11/30/19 [Last Taken Unknown] [place], Disposable [Hypodermic Needle] 1 ea [facility] 5XD #150 dis.needle 11/30/19 [Last Taken Unknown] oxyCODONE HCL [Oxycodone] 5 mg PO Q8H PRN #17 tab 11/30/19 [Last Taken Unknown] Oxycodone HCl 5 mg PO QID #16 cap 12/03/19 [Last Taken Unknown] Exam - Exam Vital Signs: Vital Signs - Last Taken Temp 36.5 C 12/07/19 07:40 Pulse 104 H 12/07/19 09:47 Resp 22 H 12/07/19 07:40 BP 198/114 H 12/07/19 09:47 Pulse Ox 95 12/07/19 07:40 Constitutional: Present: Alert, Cooperative, Well developed, Well nourished, No distress, Middle aged ENT Exam: Present: hearing grossly normal, moist mucous membranes Eye Exam: bilateral eye: normal inspection, PERRL, EOMI Neck: Present: non-tender, supple, trachea midline. Absent: lymphadenopathy (R), lymphadenopathy (L) Back Exam: Present: normal inspection, no CVA tenderness, no vertebral tenderness Respiratory: Present: lungs clear, no respiratory distress, no accessory muscle use, rhonchi, No wheezing. Absent: crackles Cardiovascular/Chest: Present: normal peripheral pulses, regular rate, rhythm, no edema, no murmur Abdomen: Present: Normal bowel sounds, soft, nontender Extremity: Present: no pedal edema, other - Status post bilateral BKA, nimo in place on right stump. Skin Exam: Present: normal color, warm/dry Neurologic: Present: alert, normal mood/affect Appearance: Present: appropriate appearance, appropriate insight Eye contact: Present: cooperative Thoughts: Present: normal thought pattern, normal mood /affect Diagnostic Studies: Abnormal Lab Results 12/07/19 12/07/19 Range/Units 05:13 05:13 WBC 11.3 H (4.0-10.5) K/mm3 RBC 4.10 L (4.7-6.0) M/mm3 Hgb 10.2 L (13.5-18.0) gm/dL Hct 33.1 L (42.0-52.0) % MCH 24.9 L (27-31) pg MCHC 30.8 L (32-36) g/dl RDW 15.6 H (11.5-14.0) % Immature Gran % (Auto) 0.80 H (0.001-0.429) % Immature Gran # (Auto) 0.09 H (0.000-0.0310) K/mm3 Neutrophils % 82.6 H (42-75.0) % Lymphocytes % 10.3 L (20-51) % Neutrophils # 9.3 H (1.3-6.0) K/mm3 Lymphocytes # 1.16 L (1.5-3.5) k/mm3 Anion Gap 13.9 H (6.8-13.8) mmol/L BUN/Creatinine Ratio 28.6 H (9.0-21.6) Random Glucose 351 H (70-110) mg/dL Alkaline Phosphatase 292 H (50-170) U/L B-Natriuretic Peptide 00988 H (5-140) pg/mL Albumin 2.3 L (3.4-5.0) gm/dl Laboratory Results WBC 11.3 K/mm3 (4.0-10.5) H 12/07/19 05:13 RBC 4.10 M/mm3 (4.7-6.0) L 12/07/19 05:13 Hgb 10.2 gm/dL (13.5-18.0) L 12/07/19 05:13 Hct 33.1 % (42.0-52.0) L 12/07/19 05:13 MCV 80.7 fl (78-100) 12/07/19 05:13 MCH 24.9 pg (27-31) L 12/07/19 05:13 MCHC 30.8 g/dl (32-36) L 12/07/19 05:13 RDW 15.6 % (11.5-14.0) H 12/07/19 05:13 Plt Count 351 K/mm3 (150-450) 12/07/19 05:13 MPV 8.9 fl (8-11.3) 12/07/19 05:13 Immature Gran % (Auto) 0.80 % (0.001-0.429) H 12/07/19 05:13 Immature Gran # (Auto) 0.09 K/mm3 (0.000-0.0310) H 12/07/19 05:13 Neutrophils % 82.6 % (42-75.0) H 12/07/19 05:13 Lymphocytes % 10.3 % (20-51) L 12/07/19 05:13 Monocytes % 4.6 % (0.0-9) 12/07/19 05:13 Eosinophils % 1.1 % (0.0-3.0) 12/07/19 05:13 Basophils % 0.6 % (0.0-1.0) 12/07/19 05:13 Nucleated RBC % 0.0 k/mm3 (0-1) 12/07/19 05:13 Neutrophils # 9.3 K/mm3 (1.3-6.0) H 12/07/19 05:13 Lymphocytes # 1.16 k/mm3 (1.5-3.5) L 12/07/19 05:13 Monocytes # 0.5 k/mm3 (0.0-1.0) 12/07/19 05:13 Eosinophils # 0.1 k/mm3 (0.0-0.7) 12/07/19 05:13 Absolute Basophils 0.1 k/mm3 (0.0-0.1) 12/07/19 05:13 Sodium 134 mmol/L (132-142) 12/07/19 05:13 Plasma Sodium 138 mmol/L (130-142) 12/07/19 05:13 Potassium 3.8 mmol/L (3.4-4.6) 12/07/19 05:13 Chloride 98 mmol/L (97-106) 12/07/19 05:13 Carbon Dioxide 25.9 mmol/L (24-32.6) 12/07/19 05:13 Anion Gap 13.9 mmol/L (6.8-13.8) H 12/07/19 05:13 BUN 22 mg/dL (6-23) 12/07/19 05:13 Creatinine 0.77 mg/dL (0.4-1.4) 12/07/19 05:13 Est GFR (Non-Af Amer) 112 mL/min (60-130) 12/07/19 05:13 BUN/Creatinine Ratio 28.6 (9.0-21.6) H 12/07/19 05:13 Random Glucose 351 mg/dL (70-110) H 12/07/19 05:13 Calcium 8.3 mg/dL (7.9-10.9) 12/07/19 05:13 Calcium Adj for Albumin 9.3 mg/dL (8.4-10.2) 12/07/19 05:13 Total Bilirubin 0.6 mg/dL (0.0-1.1) 12/07/19 05:13 AST 20 U/L (0-48) 12/07/19 05:13 ALT 36 U/L (19-67) 12/07/19 05:13 Alkaline Phosphatase 292 U/L (50-170) H 12/07/19 05:13 Troponin I 0.065 ng/mL (0.00-0.10) 12/07/19 05:13 B-Natriuretic Peptide 22759 pg/mL (5-140) H 12/07/19 05:13 Total Protein 6.9 gm/dL (6.2-8.2) 12/07/19 05:13 Albumin 2.3 gm/dl (3.4-5.0) L 12/07/19 05:13 Assessment/Plan - Narrative Narrative: 54-year-old male with a past medical history of anxiety and depression, aortic stenosis, arthritis, coronary artery disease, chronic pain with drug dependence, COPD, tobacco abuse, diabetes mellitus type 2 poorly controlled, hepatitis C, lymphoma, polysubstance abuse, osteomyelitis of foot presents from home with complaints of shortness of breath for the past 1 day. Symptoms associated with productive cough with purulent sputum and chills. He was brought to the emergency department by EMS and chest x-ray was positive for bilateral pleural effusions, left larger than right. He was found to be tachypneic and hypertensive with blood pressure of 205/110. He is known to be noncompliant with his medications and was only taking oxycodone and cephalexin. He had been admitted about a week ago with gangrene of his right lower extremity and underwent a right BKA. He was discharged and asked to follow-up with orthopedics this week but he missed that follow-up appointment. He is being admitted today with COPD and CHF exacerbation. He was given a dose of ceftriaxone and IV Lasix 20 mg in the emergency department along with duo nebs. He also received 1 dose of methylprednisolone in the emergency department. Plan #1 continue with Lasix 20 mg IV twice daily #2 strict I's and O's and daily weights #3 continue with ceftriaxone #4 continue with duo nebs #5 Lovenox for DVT prophylaxis - Assessment/Plan (1) CHF (congestive heart failure) Problem: Acute Qualifiers: Heart failure type: combined systolic and diastolic Heart failure chronicity: acute on chronic Qualified Code(s): I50.43 - Acute on chronic combined systolic (congestive) and diastolic (congestive) heart failure (2) Acute exacerbation of chronic obstructive pulmonary disease (COPD) Problem: Acute (3) Uncontrolled diabetes mellitus Problem: Acute Qualifiers: Diabetes mellitus type: type 2 Glycemic state: with hyperglycemia Qualified Code(s): E11.65 - Type 2 diabetes mellitus with hyperglycemia (4) Hypertension Problem: Acute Qualifiers: Hypertension type: essential hypertension Qualified Code(s): I10 - Essential (primary) hypertension (5) Poor compliance with medication Problem: Chronic (6) Hx of BKA Problem: Chronic Qualifiers: Laterality: left Qualified Code(s): Z89.512 - Acquired absence of left leg below knee (7) Pleural effusion due to CHF (congestive heart failure) Problem: Acute
[2019-12-07] MEDS ORDERED: ENOXAPARIN SODIUM 40 MG/0.4 ML SYRG SC SCH (14:00)
--- NOTE | 2019-12-07 14:21 | CONS ---
- Reason for consultation (1) Status post below-knee amputation of right lower extremity Date of Service: 12/07/19 HPI - General Date of Service: 12/07/19 Narrative: Patient presents today for acute CHF and COPD exacerbation. Note we are c onsulted for previous right below-knee amputation patient is approximately 2 weeks postop. Patient stump still has moderate pain, he notes no significant erythema or drainage. He has been taking antibiotics that were prescribed postop prior to discharge. Patient notes he did take off his dressing a few days after leaving the hospital. He does note he has been wiping his incision with a wet rag, does not is not clean. Patient also notes that he has had multiple accidents as he is wheelchair-bound where he is fallen or banged his knee into miscellaneous items. He notes these worsen his pain, he does note a seems better with rest and pain medication. He otherwise has no acute complaints about his below-knee amputation. Source: patient - History of Present Illness Allergies/Adverse Reactions: Allergies naproxen Adverse Reaction (Severe, Verified 12/07/19 07:30) Difficulty breathing topiramate [From Topamax] Adverse Reaction (Severe, Verified 12/07/19 07:30) Tachycardia acetaminophen [From Tylenol] Adverse Reaction (Verified 12/07/19 07:30) Other upset stomach, d/t cirrosis Home Medications: Home Medications Medication Instructions Recorded Last Taken Aspirin 325 mg PO DAILY #30 tab 11/30/19 Unknown Blood Sugar Diagnostic [Glucose 1 ea MC QID #120 strip 11/30/19 Unknown Test Strip] Blood-Glucose Meter [Blood Glucose 1 ea MC TID #1 ea 11/30/19 Unknown Meter] Carvedilol [Coreg] 12.5 mg PO BID #60 tab 11/30/19 Unknown Cephalexin 500 mg PO Q6H #24 tab 11/30/19 Unknown Furosemide [Lasix] 20 mg PO QDIPM #30 tab 11/30/19 Unknown Insulin Aspart [Insulin Aspart 5 unit SQ TID #1 insuln.pen 11/30/19 Unknown Flexpen] Insulin Glargine,Hum.rec.anlog 20 unit SQ BID #1 insuln.pen 11/30/19 Unknown [Lantus Solostar] Lisinopril/Hydrochlorothiazide 1 ea PO QAM #30 tab 11/30/19 Unknown [Lisinopril-Hctz 20-25 mg Tab] [place], Disposable [Hypodermic 1 ea [facility] 5XD #150 dis.needle 11/30/19 Unknown Needle] oxyCODONE HCL [Oxycodone] 5 mg PO Q8H PRN #17 tab 11/30/19 Unknown Oxycodone HCl 5 mg PO QID #16 cap 12/03/19 Unknown prednisone 1 mg tablet 1 mg PO DAILY #9 tab 12/07/19 Unknown prednisone 5 mg tablet 5 mg PO DAILY #20 tab 12/07/19 Unknown Procedures Application of splint (06/16/04) Drainage of Right Lower Arm Skin, External Approach (01/29/16) Medications - Medications Current Medications: Current Medications Carvedilol (Coreg) 12.5 mg PO BID [facility] Stop: 01/06/20 09:01 Last Admin: 12/07/19 09:47 Dose: 12.5 mg Documented by: Hydrochlorothiazide (Hydrodiuril) 25 mg PO DAILY [facility] Stop: 01/06/20 09:01 Last Admin: 12/07/19 09:47 Dose: 25 mg Documented by: Ceftriaxone Sodium 1,000 mg/ (Dextrose/Water) 100 mls @ 200 mls/hr IV Q24H [facility]; Protocol Stop: 01/06/20 06:46 Last Infusion: 12/07/19 07:47 Dose: Infused Documented by: Insulin Glargine (Lantus) 20 units SC BID [facility] Stop: 01/06/20 09:01 Last Admin: 12/07/19 09:48 Dose: 20 units Documented by: Insulin Human Lispro (Humalog) 5 units SC TIDWM [facility] Stop: 01/06/20 09:01 Last Admin: 12/07/19 12:19 Dose: 5 units Documented by: Insulin Human Lispro (Humalog) 0 units SC ACINS [facility]; Protocol Stop: 01/06/20 17:01 Last Admin: 12/07/19 12:19 Dose: 20 units Documented by: Lisinopril (Zestril) 20 mg PO DAILY [facility] Stop: 01/06/20 09:01 Last Admin: 12/07/19 09:47 Dose: 20 mg Documented by: Oxycodone HCl (Oxycodone) 5 mg PO Q8H PRN PRN Reason: Severe Pain (pain scale 7-10) Stop: 01/06/20 09:54 Last Admin: 12/07/19 10:30 Dose: 5 mg Documented by: Physical Examination - Exam Vital Signs: Vital Signs - Last Taken Temp 36.5 C 12/07/19 07:40 Pulse 104 H 12/07/19 09:47 Resp 22 H 12/07/19 07:40 BP 198/114 H 12/07/19 09:47 Pulse Ox 95 12/07/19 07:40 O2 Oxygen Delivery Method Room Air Constitutional: Present: Alert, Cooperative Extremity: Present: other - LLE--> below knee amputation, multiple healing wounds on the anterior knee, minimal erythema at wound sites, no significant drainage previous surgical incision appears well-healed RLE--> nimo in place, distal capillary refill brisk, sensation intact light touch, mild erythema at incision site, no significant drainage or signs of infection at this time, below-knee amputation Eye contact: Present: cooperative - Results and Findings: Lab/Microbiology results last 24 hrs: Abnormal/Pending Laboratory Last 24 HRS 12/07/19 12/07/19 05:13 05:13 WBC 11.3 H RBC 4.10 L Hgb 10.2 L Hct 33.1 L MCH 24.9 L MCHC 30.8 L RDW 15.6 H Immature Gran % (Auto) 0.80 H Immature Gran # (Auto) 0.09 H Neutrophils % 82.6 H Lymphocytes % 10.3 L Neutrophils # 9.3 H Lymphocytes # 1.16 L Anion Gap 13.9 H BUN/Creatinine Ratio 28.6 H Random Glucose 351 H Alkaline Phosphatase 292 H B-Natriuretic Peptide 57954 H Albumin 2.3 L - Assessments/Findings (1) Status post below-knee amputation of right lower extremity Problem: Acute Plan - Plan Plan: -54 y/o male approximately 2 weeks postop status post right below-knee amputation -Maintain nimo in place until 3 weeks postop, patient has a scheduled visit at the orthopedic outpatient clinic -Replace dressing with dry gauze and Tubigrip change PRN -Monitor wound for any erythema or drainage -Continue working on passive and active range of motion of stump right lower extremity -Chronic medical conditions per medicine team -Maintain with clean dressing over surgical incision site -Disposition: Ongoing planning, dressing changes PRN, outpatient follow-up for postoperative management
[2019-12-07 14:24] VITALS: BP 179/78
[2019-12-07] MEDS ORDERED: ALBUTEROL SULFATE/IPRATROPIUM 3 ML NEBU IH SCH (15:00)
[2019-12-07] MEDS ORDERED: FUROSEMIDE 10 MG/ML VIAL IV SCH (15:00)
[2019-12-07] MEDS ORDERED: amLODIPine BESYLATE 5 MG TABLET PO ONE (16:03)
[2019-12-07] MEDS ORDERED: LISINOPRIL 20 MG TABLET PO ONE (16:30)
--- NOTE | 2019-12-07 16:52 | DS ---
(1) CHF (congestive heart failure) Problem: Acute Qualifiers: Heart failure type: combined systolic and diastolic Heart failure chronicity: acute on chronic Qualified Code(s): I50.43 - Acute on chronic combined systolic (congestive) and diastolic (congestive) heart failure (2) Acute exacerbation of chronic obstructive pulmonary disease (COPD) Problem: Acute (3) Uncontrolled diabetes mellitus Problem: Acute Qualifiers: Diabetes mellitus type: type 2 Glycemic state: with hyperglycemia Qualified Code(s): E11.65 - Type 2 diabetes mellitus with hyperglycemia (4) Hypertension Problem: Acute Qualifiers: Hypertension type: essential hypertension Qualified Code(s): I10 - Essential (primary) hypertension (5) Poor compliance with medication Problem: Chronic (6) Hx of BKA Problem: Chronic Qualifiers: Laterality: left Qualified Code(s): Z89.512 - Acquired absence of left leg below knee (7) Pleural effusion due to CHF (congestive heart failure) Problem: Acute Hospital Course: 54-year-old male with a past medical history of anxiety and depression, aortic stenosis, arthritis, coronary artery disease, chronic pain with drug dependence, COPD, tobacco abuse, diabetes mellitus type 2 poorly controlled, hepatitis C, lymphoma, polysubstance abuse, osteomyelitis of foot presents from home with complaints of shortness of breath for the past 1 day. Symptoms associated with productive cough with purulent sputum and chills. He was brought to the emergency department by EMS and chest x-ray was positive for bilateral pleural effusions, left larger than right. He was found to be tachypneic and hypertensive with blood pressure of 205/110. He is known to be noncompliant with his medications and was only taking oxycodone and cephalexin. He had been admitted about a week ago with gangrene of his right lower extremity and underwent a right BKA. He was discharged and asked to follow-up with orthopedics this week but he missed that follow-up appointment. He was admitted today with COPD and CHF exacerbation. He was given a dose of ceftriaxone and IV Lasix 20 mg in the emergency department along with nellie stringer. He also received 1 dose of methylprednisolone in the emergency department. Patient's blood pressure was elevated and I added amlodipine 5 mg and increase the dose of lisinopril to 40 mg daily. He was seen by orthopedics and their recommendations were to keep a clean dressing over the wound, follow-up with them in 1 week for staple removal in the office. This afternoon he decided to leave AGAINST MEDICAL ADVICE. Appropriate paperwork was completed. Procedures Performed: none Results and Findings: Lab Pending Results 12/07/19 05:13: WBC 11.3 H, RBC 4.10 L, Hgb 10.2 L, Hct 33.1 L, MCV 80.7, MCH 24.9 L, MCHC 30.8 L, RDW 15.6 H, Plt Count 351, MPV 8.9, Immature Gran % (Auto) 0.80 H, Immature Gran # (Auto) 0.09 H, Neutrophils % 82.6 H, Lymphocytes % 10.3 L, Monocytes % 4.6, Eosinophils % 1.1, Basophils % 0.6, Nucleated RBC % 0.0, Neutrophils # 9.3 H, Lymphocytes # 1.16 L, Monocytes # 0.5, Eosinophils # 0.1, Absolute Basophils 0.1 12/07/19 05:13: Sodium 134, Plasma Sodium 138, Potassium 3.8, Chloride 98, Carbon Dioxide 25.9, Anion Gap 13.9 H, BUN 22, Creatinine 0.77, Est GFR (Non-Af Amer) 112, BUN/Creatinine Ratio 28.6 H, Random Glucose 351 H, Calcium 8.3, Calcium Adj for Albumin 9.3, Total Bilirubin 0.6, AST 20, ALT 36, Alkaline Phosphatase 292 H, Troponin I 0.065, B-Natriuretic Peptide 65555 H, Total Protein 6.9, Albumin 2.3 L Discharge Location: Home Disposition: Against medical advice Condition: Poor Discharge Activity: Non-Weight bearing Discharge Diet: Consistent carbs Additional Patient Instructions (free text): Post -Op follow up with Dr. Hernandez Thursday at 1:30p.m. Complete Home Medications List: Complete Home Medication List: Aspirin 325 mg PO DAILY #30 tab 11/30/19 Blood Sugar Diagnostic [Glucose Test Strip] 1 [facility] QID #120 strip 11/30/19 Blood-Glucose Meter [Blood Glucose Meter] 1 [facility] TID #1 ea 11/30/19 Carvedilol [Coreg] 12.5 mg PO BID #60 tab 11/30/19 Cephalexin 500 mg PO Q6H #24 tab 11/30/19 Furosemide [Lasix] 20 mg PO QDIPM #30 tab 11/30/19 Insulin Aspart [Insulin Aspart Flexpen] 5 unit SQ TID #1 insuln.pen 11/30/19 Insulin Glargine,Hum.rec.anlog [Lantus Solostar] 20 unit SQ BID #1 insuln.pen 11/30/19 Lisinopril/Hydrochlorothiazide [Lisinopril-Hctz 20-25 mg Tab] 1 ea PO QAM #30 tab 11/30/19 [place], Disposable [Hypodermic Needle] 1 ea [facility] 5XD #150 dis.needle 11/30/19 oxyCODONE HCL [Oxycodone] 5 mg PO Q8H PRN #17 tab 11/30/19 Oxycodone HCl 5 mg PO QID #16 cap 12/03/19 prednisone 1 mg tablet 1 mg PO DAILY #9 tab 12/07/19 prednisone 5 mg tablet 5 mg PO DAILY #20 tab 12/07/19
[2019-12-07] MEDS ORDERED: INSULIN LISPRO 100 UNITS/ML VIAL SC SCH (17:00)
[2019-12-08] MEDS ORDERED: amLODIPine BESYLATE 5 MG TABLET PO SCH (09:00)
[2019-12-08] MEDS ORDERED: LISINOPRIL 40 MG TABLET PO SCH (09:00)
== END 2019-12-07 16:50 | disposition left against medical advice (07) | DRG 190 ==
LOC: ER 04:57 → MS 06:35
PROVIDERS: ADMIT Internal Medicine; ATTEND Internal Medicine
CPT/HCPCS: 36415; 71010; 71045; 80053; 83519; 83880; 84484; 85025; 87081; 93005; 94640; 94664; 94760; 96374; 96375; 99285

== ENCOUNTER 2019-12-20 14:42 | Observation (INO) ==
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
[2019-12-20 15:37] LABS: Methemoglobin % 0.3 % (0.41-1.15)
[2019-12-20 15:38] LABS: Carboxyhemoglobin % 4.1 % (0.5-1.5)
[2019-12-20 15:39] LABS: Hemoglobin 13.2 gm/dL (13.5-18.0); Mean Cell Volume 78.6 fl (78-100); Mean Corpuscular Hemoglobin 24.1 pg (27-31); Mean Corpuscular Hgb Conc 30.7 g/dl (32-36); Mean Platelet Volume 9.5 fl (8-11.3); Neutrophil # 10.7 K/mm3 (1.3-6.0); Neutrophil % 87.1 % (42-75.0); Platelet Count 211 K/mm3 (150-450); Red Blood Count 5.47 M/mm3 (4.7-6.0); White Blood Count 12.3 K/mm3 (4.0-10.5)
[2019-12-20 16:01] LABS: Albumin * 2.4 gm/dl (3.4-5.0); Anion Gap 13.9 mmol/L (6.8-13.8); Bilirubin, Total 0.8 mg/dL (0.0-1.1); Ca. Corrected For Albumin 9.7 mg/dL (8.4-10.2); Calcium * 8.7 mg/dL (7.9-10.9); Carbon Dioxide 27.3 mmol/L (24-32.6); Potassium 3.2 mmol/L (3.4-4.6); Total Protein 7.5 gm/dL (6.2-8.2)
[2019-12-20 16:14] LABS: CRP 23.2 mg/dL (0.0-0.9)
[2019-12-20] MEDS ORDERED: NORMAL SALINE 1,000 ML IV ONE (16:42)
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
[2019-12-20] MEDS ORDERED: INSULIN ASPART 100 UNITS/ML VIAL SC SCH (18:15)
[2019-12-20] MEDS ORDERED: CARVEDILOL 25 MG TABLET ONE (18:21)
[2019-12-20] MEDS ORDERED: INSULIN GLARGINE,HUM.REC.ANLOG 100 UNITS/ML VIAL SC ONE (18:22)
[2019-12-20] MEDS: INSULIN LISPRO 100 UNITS/ML VIAL SC SCH (18:29)
[2019-12-20] MEDS: oxyCODONE HCL 5 MG TABLET PO PRN (18:29)
[2019-12-20] MEDS ORDERED: SILVER SULFADIAZINE 50 APPL JAR TP ONE (19:07)
[2019-12-20] MEDS: SULFAMETHOXAZOLE/TRIMETHOPRIM 1 TAB TABLET PO SCH (20:15)
[2019-12-20] MEDS: CARVEDILOL 12.5 MG TABLET PO SCH (20:15)
[2019-12-20] MEDS: INSULIN GLARGINE,HUM.REC.ANLOG 100 UNITS/ML VIAL SC SCH (20:15)
[2019-12-20] MEDS: ACETAMINOPHEN 500 MG TABLET PO PRN (23:38)
[2019-12-21 01:06] LABS: Urine Bilirubin 1 mg/dl (NEGATIVE); Urine Blood 250 /ul (NEGATIVE); Urine Ketone 5 mg/dL (NEGATIVE); Urine Nitrite Negative (NEGATIVE); Urine Protein >=300 mg/dL (NEGATIVE); Urine Specific Gravity >=1.030 SP.GR. (1.005-1.030); Urine Urobilinogen Normal (NORMAL); Urine pH 5.5 pH (5.0-7.0)
[2019-12-21 01:18] LABS: Urine Appearance Cloudy (CLEAR); Urine Bacteria TRACE; Urine Color Dark Yellow; Urine Fine Granular Cast 0-5 /LPF; Urine RBC None Seen /hpf (0-5); Urine WBC 0-5 /hpf (0-5)
[2019-12-21 01:32] LABS: Cocaine Ur Negative (NEGATIVE); Urine Barbiturate Negative (NEGATIVE); Urine Benzodiazepines Negative (NEGATIVE); Urine Opiates Negative (NEGATIVE); Urine PCP Negative (NEGATIVE)
[2019-12-21 01:33] LABS: Urine THC Positive (NEGATIVE)
[2019-12-21] MEDS: oxyCODONE HCL 5 MG TABLET PO PRN ×2 (02:53→11:17)
[2019-12-21] MEDS: ACETAMINOPHEN 500 MG TABLET PO PRN (05:39)
[2019-12-21 06:31] LABS: Hematocrit 35.2 % (42.0-52.0); Hemoglobin 10.7 gm/dL (13.5-18.0); Mean Corpuscular Hemoglobin 23.7 pg (27-31); Mean Corpuscular Hgb Conc 30.4 g/dl (32-36); Neutrophil # 8.2 K/mm3 (1.3-6.0); Neutrophil % 82.8 % (42-75.0); Platelet Count 166 K/mm3 (150-450); Red Blood Count 4.51 M/mm3 (4.7-6.0); White Blood Count 9.9 K/mm3 (4.0-10.5)
[2019-12-21 06:43] LABS: Albumin * 1.9 gm/dl (3.4-5.0); Anion Gap 12.6 mmol/L (6.8-13.8); BUN/Creatinine Ratio 24.2 (9.0-21.6); Bilirubin, Total 0.6 mg/dL (0.0-1.1); Ca. Corrected For Albumin 9.1 mg/dL (8.4-10.2); Calcium * 7.7 mg/dL (7.9-10.9); Carbon Dioxide 26.5 mmol/L (24-32.6); Potassium 3.1 mmol/L (3.4-4.6)
[2019-12-21] MEDS: SULFAMETHOXAZOLE/TRIMETHOPRIM 1 TAB TABLET PO SCH (08:39)
[2019-12-21] MEDS: CARVEDILOL 12.5 MG TABLET PO SCH (08:39)
[2019-12-21] MEDS: INSULIN LISPRO 100 UNITS/ML VIAL SC SCH ×2 (08:40→12:01)
[2019-12-21] MEDS: INSULIN GLARGINE,HUM.REC.ANLOG 100 UNITS/ML VIAL SC SCH (08:41)
[2019-12-21] MEDS ORDERED: LISINOPRIL 20 MG TABLET PO SCH (09:00)
[2019-12-21] MEDS ORDERED: HYDROCHLOROTHIAZIDE 25 MG TABLET PO SCH (09:00)
[2019-12-21] MEDS ORDERED: ASPIRIN 325 MG TABLET.DR PO SCH (09:00)
[2019-12-21] MEDS ORDERED: SILVER SULFADIAZINE 50 APPL JAR TP SCH (09:00)
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
[2019-12-21 14:20] VITALS: BP 104/59
== END 2019-12-21 13:40 | disposition home or self-care (01) ==
LOC: ER 14:42 → MS 14:42
PROVIDERS: ADMIT Family Medicine; ATTEND Family Medicine
DX: F41.8 Other specified anxiety disorders; Z59.0 Homelessness; X02.8XXA Other exposure to controlled fire in building or structure, initial encounter; R53.1 Weakness; T24.202A Burn of second degree of unspecified site of left lower limb, except ankle and foot, initial encounter; F19.10 Other psychoactive substance abuse, uncomplicated; I25.10 Atherosclerotic heart disease of native coronary artery without angina pectoris; J44.9 Chronic obstructive pulmonary disease, unspecified; F17.210 Nicotine dependence, cigarettes, uncomplicated; T31.0 Burns involving less than 10% of body surface; T79.6XXA Traumatic ischemia of muscle, initial encounter; E11.65 Type 2 diabetes mellitus with hyperglycemia
CPT/HCPCS: 36415; 71010; 71020; 71045; 71046; 80053; 80307; 81001; 82375; 82550; 83605; 85025; 86140; 87081; 96372; 99284; 99285; G0378

== ENCOUNTER 2019-12-30 18:25 | Inpatient (IN) ==
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
[2019-12-30 19:08] LABS: Hematocrit 34.5 % (42.0-52.0); Hemoglobin 10.7 gm/dL (13.5-18.0); Mean Cell Volume 76.5 fl (78-100); Mean Corpuscular Hemoglobin 23.7 pg (27-31); Mean Platelet Volume 9.6 fl (8-11.3); Neutrophil # 15.4 K/mm3 (1.3-6.0); Platelet Count 382 K/mm3 (150-450); Red Blood Count 4.51 M/mm3 (4.7-6.0); Red Cell Distribution Width 16.1 % (11.5-14.0); White Blood Count 16.7 K/mm3 (4.0-10.5)
[2019-12-30 19:38] LABS: Albumin * 2.1 gm/dl (3.4-5.0); Anion Gap 10.5 mmol/L (6.8-13.8); Bilirubin, Total 0.4 mg/dL (0.0-1.1); Calcium * 8.8 mg/dL (7.9-10.9); Carbon Dioxide 29.3 mmol/L (24-32.6); Potassium 3.8 mmol/L (3.4-4.6); Total Protein 7.1 gm/dL (6.2-8.2)
[2019-12-30 19:47] LABS: Urine Bilirubin Negative (NEGATIVE); Urine Blood 50 /ul (NEGATIVE); Urine Ketone Negative (NEGATIVE); Urine Nitrite Negative (NEGATIVE); Urine Protein 100 mg/dL (NEGATIVE); Urine Specific Gravity 1.025 SP.GR. (1.005-1.030); Urine Urobilinogen Normal (NORMAL); Urine pH 5.5 pH (5.0-7.0)
[2019-12-30 19:53] LABS: Urine Appearance Clear (CLEAR); Urine Color Yellow
[2019-12-30 19:54] LABS: Urine Bacteria None Seen; Urine WBC None Seen /hpf (0-5)
[2019-12-30 19:55] LABS: Cocaine Ur Negative (NEGATIVE); Urine Barbiturate Negative (NEGATIVE); Urine Benzodiazepines Negative (NEGATIVE); Urine Opiates Negative (NEGATIVE); Urine PCP Negative (NEGATIVE); Urine THC Negative (NEGATIVE)
[2019-12-30] MEDS ORDERED: FUROSEMIDE 10 MG/ML VIAL IV ONE (20:16)
[2019-12-30] MEDS ORDERED: INSULIN LISPRO 100 UNITS/ML VIAL SC ONE ×2 (20:23→23:30)
[2019-12-30] MEDS ORDERED: cefTRIAXone SODIUM 1,000 MG/100 ML BAG IV ONE (20:27)
[2019-12-30] MEDS ORDERED: AZITHROMYCIN 250 MG TABLET PO ONE (20:27)
[2019-12-30] MEDS: IBUPROFEN 800 MG TABLET PO PRN (21:28)
[2019-12-30] MEDS ORDERED: ACETAMINOPHEN 500 MG TABLET PO PRN (23:29)
[2019-12-30] MEDS ORDERED: diphenhydrAMINE HCL 50 MG CAPSULE PO ONE (23:30)
[2019-12-31] MEDS: NICOTINE 21 MG PATC TD SCH (00:04)
[2019-12-31 06:31] LABS: Hematocrit 31.5 % (42.0-52.0); Hemoglobin 9.8 gm/dL (13.5-18.0); Mean Cell Volume 75.5 fl (78-100); Mean Corpuscular Hemoglobin 23.5 pg (27-31); Mean Corpuscular Hgb Conc 31.1 g/dl (32-36); Mean Platelet Volume 9.3 fl (8-11.3); Neutrophil # 14.6 K/mm3 (1.3-6.0); Neutrophil % 89.2 % (42-75.0); Platelet Count 359 K/mm3 (150-450); Red Blood Count 4.17 M/mm3 (4.7-6.0); White Blood Count 16.3 K/mm3 (4.0-10.5)
[2019-12-31 06:59] LABS: Albumin * 1.9 gm/dl (3.4-5.0); Anion Gap 10.9 mmol/L (6.8-13.8); Bilirubin, Total 0.2 mg/dL (0.0-1.1); Calcium * 8.6 mg/dL (7.9-10.9); Carbon Dioxide 31.5 mmol/L (24-32.6); Potassium 4.4 mmol/L (3.4-4.6)
--- NOTE | 2019-12-31 07:41 | HP ---
Chief Complaint - Chief Complaint Date of Service: 12/31/19 Time of Service: 07:40 History of Present Illness: 54-year-old male presented to the hospital with cough, lower extremity pain, generalized weakness, and just feeling rundown. Patient has history of coming to the hospital frequently for multitude of reasons, patient is not compliant with his care and oftentimes leaves AMA. In the ER patient was found to have an elevated white count at 16.7 with a left shift at 9 2 %. Chest x-ray was negative for any acute process. Patient had an elevated BNP at greater than 20,000 which is significant jump from previous values. Patient admitted to the floor for elevated white count, congestive heart failure exacerbation. On exam patient denied productive cough but states he has just felt bad for last couple weeks. Asked if he felt sick anywhere. 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 This is likely where the cause of his leukocytosis. Blood cultures came back preliminary growing gram-positive cocci in chains which is likely a strep species. Patient was started on oxacillin and clindamycin IV. Patient also received 40 mg of Lasix IV to help with his diuresis and hopefully get some of the fluid off of him. He does not show signs systemically of CHF. Medical History (Last Reviewed 12/30/19 @ 23:09 by Tamica Barlow RN) Diabetes mellitus type 2 with complications, uncontrolled (Chronic) COPD (chronic obstructive pulmonary disease) (Chronic) Anxiety and depression (Chronic) Polysubstance abuse (Chronic) Chronic pain with drug dependence (Chronic) Osteomyelitis of foot (Resolved) Poorly controlled diabetes mellitus (Chronic) Aortic stenosis (Chronic) Hepatitis C (Chronic) CAD (coronary artery disease) (Chronic) Acute IN (Acute) Abnormal liver function test Onset Date: Unknown Anxiety Aortic stenosis Arthritis Lymphoma Tobacco abuse Onset Date: Unknown Surgical History: Surgical History (Last Reviewed 12/30/19 @ 23:09 by Tamica Barlow RN) Amputated below knee H/O heart artery stent History of thoracentesis Onset Date: Unknown fluid removed from chest/breast area History of transmetatarsal amputation of left foot Onset Date: 01/2018 Pacemaker S/P TAVR (transcatheter aortic valve replacement) Family History: Family History (Last Reviewed 12/30/19 @ 23:09 by Tamica Barlow RN) Other No pertinent family history Social History: (Last Reviewed 12/30/19 @ 23:09 by Tamica Barlow RN) Social History: Marital status: Single household members: other 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 Absent: Fever EENTM: Present: No Symptoms Reported Cardiac: Present: Edema. Absent: Chest Pain Abdominal: Absent: Nausea, Vomiting, Abdominal Pain Genitourinary: Present: No Symptoms Reported Neurological: Present: No Symptoms Reported Skin: Present: Other Endocrine: Present: No Symptoms Reported Immunizations: IMMUNIZATION HX Immunizations Up to Date No History of Influenza Vaccine No Hx Pneumococcal Vaccination No Allergies/Adverse Reactions: Allergies Allergy/AdvReac Type Severity Reaction Status Date / Time naproxen AdvReac Severe Verified 12/30/19 18:40 topiramate [From Topamax] AdvReac Severe Verified 12/30/19 18:40 acetaminophen [From Tylenol] AdvReac Other Verified 12/30/19 18:40 Home Medications: HOME MEDICATIONS NK 12/26/19 [Last Taken Unknown] Exam - Exam Vital Signs: Vital Signs - Last Taken Temp 36.3 C 12/31/19 07:00 Pulse 100 12/31/19 07:00 Resp 20 12/31/19 07:00 BP 143/65 H 12/31/19 07:00 Pulse Ox 96 12/31/19 07:00 Constitutional: Present: Alert, Oriented x3, Moderate distress, Looks Older than stated age ENT Exam: Present: hearing grossly normal, nasal congestion Eye Exam: bilateral eye: normal inspection, EOMI Respiratory: Present: lungs clear, expiration (prolonged) Cardiovascular/Chest: Present: regular rate, rhythm, no murmur Eye contact: Present: good eye contact Thoughts: Present: persecution. Absent: normal mood /affect Diagnostic Studies: Abnormal Lab Results 12/30/19 12/30/19 12/30/19 Range/Units 18:55 18:55 18:55 WBC 16.7 H D (4.0-10.5) K/mm3 RBC 4.51 L (4.7-6.0) M/mm3 Hgb 10.7 L (13.5-18.0) gm/dL Hct 34.5 L (42.0-52.0) % MCV 76.5 L (78-100) fl MCH 23.7 L (27-31) pg MCHC 31.0 L (32-36) g/dl RDW 16.1 H (11.5-14.0) % Immature Gran % (Auto) 1.20 H (0.001-0.429) % Immature Gran # (Auto) 0.20 H (0.000-0.0310) K/mm3 Neutrophils % 92.0 H (42-75.0) % Lymphocytes % 3.3 L (20-51) % Neutrophils # 15.4 H (1.3-6.0) K/mm3 Lymphocytes # 0.55 L (1.5-3.5) k/mm3 BUN 24 H (6-23) mg/dL BUN/Creatinine Ratio 24.0 H (9.0-21.6) Random Glucose 403 H (70-110) mg/dL ALT 15 L (19-67) U/L B-Natriuretic Peptide 82635 H (5-140) pg/mL Total Protein (6.2-8.2) gm/dL Albumin 2.1 L (3.4-5.0) gm/dl Urine Protein (NEGATIVE) mg/dL Urine Glucose (UA) (NEGATIVE) mg/dL Urine Blood (NEGATIVE) /ul Prot Sulfosalicylic Acd (0) mg/dL Urine RBC (0-5) /hpf Ur Epithelial Cells (0-5) /hpf 12/30/19 12/31/19 12/31/19 Range/Units 19:39 06:05 06:05 WBC 16.3 H (4.0-10.5) K/mm3 RBC 4.17 L (4.7-6.0) M/mm3 Hgb 9.8 L (13.5-18.0) gm/dL Hct 31.5 L (42.0-52.0) % MCV 75.5 L (78-100) fl MCH 23.5 L (27-31) pg MCHC 31.1 L (32-36) g/dl RDW 16.0 H (11.5-14.0) % Immature Gran % (Auto) 0.70 H (0.001-0.429) % Immature Gran # (Auto) 0.11 H (0.000-0.0310) K/mm3 Neutrophils % 89.2 H (42-75.0) % Lymphocytes % 4.4 L (20-51) % Neutrophils # 14.6 H (1.3-6.0) K/mm3 Lymphocytes # 0.72 L (1.5-3.5) k/mm3 BUN 24 H (6-23) mg/dL BUN/Creatinine Ratio 30.0 H (9.0-21.6) Random Glucose (70-110) mg/dL ALT 16 L (19-67) U/L B-Natriuretic Peptide (5-140) pg/mL Total Protein 6.0 L (6.2-8.2) gm/dL Albumin 1.9 L (3.4-5.0) gm/dl Urine Protein 100 H (NEGATIVE) mg/dL Urine Glucose (UA) >=1000 H (NEGATIVE) mg/dL Urine Blood 50 H (NEGATIVE) /ul Prot Sulfosalicylic Acd 3+ H (0) mg/dL Urine RBC 5-10 H (0-5) /hpf Ur Epithelial Cells 5-10 H (0-5) /hpf Laboratory Results WBC 16.3 K/mm3 (4.0-10.5) H 12/31/19 06:05 RBC 4.17 M/mm3 (4.7-6.0) L 12/31/19 06:05 Hgb 9.8 gm/dL (13.5-18.0) L 12/31/19 06:05 Hct 31.5 % (42.0-52.0) L 12/31/19 06:05 MCV 75.5 fl (78-100) L 12/31/19 06:05 MCH 23.5 pg (27-31) L 12/31/19 06:05 MCHC 31.1 g/dl (32-36) L 12/31/19 06:05 RDW 16.0 % (11.5-14.0) H 12/31/19 06:05 Plt Count 359 K/mm3 (150-450) 12/31/19 06:05 MPV 9.3 fl (8-11.3) 12/31/19 06:05 Immature Gran % (Auto) 0.70 % (0.001-0.429) H 12/31/19 06:05 Immature Gran # (Auto) 0.11 K/mm3 (0.000-0.0310) H 12/31/19 06:05 Neutrophils % 89.2 % (42-75.0) H 12/31/19 06:05 Lymphocytes % 4.4 % (20-51) L 12/31/19 06:05 Monocytes % 5.4 % (0.0-9) 12/31/19 06:05 Eosinophils % 0.1 % (0.0-3.0) 12/31/19 06:05 Basophils % 0.2 % (0.0-1.0) 12/31/19 06:05 Nucleated RBC % 0.0 k/mm3 (0-1) 12/31/19 06:05 Neutrophils # 14.6 K/mm3 (1.3-6.0) H 12/31/19 06:05 Lymphocytes # 0.72 k/mm3 (1.5-3.5) L 12/31/19 06:05 Monocytes # 0.9 k/mm3 (0.0-1.0) 12/31/19 06:05 Eosinophils # 0.0 k/mm3 (0.0-0.7) 12/31/19 06:05 Absolute Basophils 0.0 k/mm3 (0.0-0.1) 12/31/19 06:05 Sodium 138 mmol/L (132-142) 12/31/19 06:05 Plasma Sodium 138 mmol/L (130-142) 12/31/19 06:05 Potassium 4.4 mmol/L (3.4-4.6) 12/31/19 06:05 Chloride 100 mmol/L (97-106) 12/31/19 06:05 Carbon Dioxide 31.5 mmol/L (24-32.6) 12/31/19 06:05 Anion Gap 10.9 mmol/L (6.8-13.8) 12/31/19 06:05 BUN 24 mg/dL (6-23) H 12/31/19 06:05 Creatinine 0.80 mg/dL (0.4-1.4) 12/31/19 06:05 Est GFR (Non-Af Amer) 107 mL/min (60-130) D 12/31/19 06:05 BUN/Creatinine Ratio 30.0 (9.0-21.6) H 12/31/19 06:05 Random Glucose 93 mg/dL (70-110) D 12/31/19 06:05 Calcium 8.6 mg/dL (7.9-10.9) 12/31/19 06:05 Calcium Adj for Albumin 10.0 mg/dL (8.4-10.2) 12/31/19 06:05 Total Bilirubin 0.2 mg/dL (0.0-1.1) 12/31/19 06:05 AST 16 U/L (0-48) 12/31/19 06:05 ALT 16 U/L (19-67) L 12/31/19 06:05 Alkaline Phosphatase 138 U/L (50-170) 12/31/19 06:05 Troponin I 0.058 ng/mL (0.00-0.10) 12/30/19 18:55 B-Natriuretic Peptide 16906 pg/mL (5-140) H 12/30/19 18:55 Total Protein 6.0 gm/dL (6.2-8.2) L 12/31/19 06:05 Albumin 1.9 gm/dl (3.4-5.0) L 12/31/19 06:05 Urine Color Yellow 12/30/19 19:39 Urine Appearance Clear (CLEAR) 12/30/19 19:39 Urine pH 5.5 pH (5.0-7.0) 12/30/19 19:39 Ur Specific [place] 1.025 SP.GR. (1.005-1.030) 12/30/19 19:39 Urine Protein 100 mg/dL (NEGATIVE) H 12/30/19 19:39 Urine Glucose (UA) >=1000 mg/dL (NEGATIVE) H 12/30/19 19:39 Urine Ketones Negative mg/dL (NEGATIVE) 12/30/19 19:39 Urine Blood 50 /ul (NEGATIVE) H 12/30/19 19:39 Urine Nitrate Negative (NEGATIVE) 12/30/19 19:39 Urine Bilirubin Negative mg/dl (NEGATIVE) 12/30/19 19:39 Prot Sulfosalicylic Acd 3+ mg/dL (0) H 12/30/19 19:39 Urine Urobilinogen Normal EU/dl (NORMAL) 12/30/19 19:39 Ur Leukocyte Esterase Negative /ul (NEGATIVE) 12/30/19 19:39 Urine RBC 5-10 /hpf (0-5) H 12/30/19 19:39 Urine WBC None seen /hpf (0-5) 12/30/19 19:39 Ur Epithelial Cells 5-10 /hpf (0-5) H 12/30/19 19:39 Urine Bacteria None seen (NONE) 12/30/19 19:39 Urine Culture Comments No culture indicated 12/30/19 19:39 Urine Opiates Screen Negative (NEGATIVE) 12/30/19 19:39 Barbiturate Screen Negative (NEGATIVE) 12/30/19 19:39 Ur Phencyclidine Scrn Negative (NEGATIVE) 12/30/19 19:39 Urine Amphetamine Negative (NEGATIVE) 12/30/19 19:39 U Benzodiazepines Scrn Negative (NEGATIVE) 12/30/19 19:39 Urine Cocaine Screen Negative (NEGATIVE) 12/30/19 19:39 Urine Marijuana (THC) Negative (NEGATIVE) 12/30/19 19:39 Assessment/Plan - Narrative Narrative: Patient admitted to the hospital for presumed pneumonia with cough and CHF exacerbation. Blood cultures came back showing the patient be bacteremic with gram-positive cocci in chains, likely strep infection. Patient started on oxacillin and clindamycin while waiting for speciation and sensitivities. Patient gently being diuresed due to elevated BNP. We will continue to monitor his kidney function and creatinine. Patient is a poorly controlled diabetic, noncompliant, does not take meds. Moderate sliding scale insulin ordered today. Initial glucose was elevated at 403, return to normal range after 30 units of Humalog insulin administered. Continue sliding scale and will adjust as needed. Patient started on consistent carbohydrate diet. We will continue to monitor his vital signs. Will repeat lab work in the morning. Nurse to call with any questions or concerns. Tramadol was ordered for pain 50 mg every 6 hours as needed. No other narcotics will be given at this time. - Assessment/Plan (1) Bacteremia Problem: Acute (2) Infected blister of left lower extremity Problem: Acute (3) Hx of BKA Problem: Chronic Qualifiers: Laterality: left Qualified Code(s): Z89.512 - Acquired absence of left leg below knee (4) Anxiety and depression Problem: Chronic (5) Poorly controlled diabetes mellitus Problem: Chronic
[2019-12-31] MEDS ORDERED: NICOTINE 21 MG PATC TD SCH (09:00)
[2019-12-31] MEDS: traMADol HCL 50 MG TABLET PO PRN ×2 (11:23→19:31)
[2019-12-31] MEDS ORDERED: INSULIN LISPRO 100 UNITS/ML VIAL SC ONE (12:00)
[2019-12-31] MEDS: METOPROLOL TARTRATE 50 MG TABLET PO SCH ×2 (12:02→20:40)
[2019-12-31] MEDS: DEXTROSE 5% IV SCH ×4 (14:00→21:16)
[2019-12-31] MEDS: OXACILLIN SODIUM IV SCH ×4 (14:00→21:16)
[2019-12-31] MEDS: WATER IV SCH ×4 (14:00→21:16)
[2019-12-31] MEDS: CLINDAMYCIN IN 0.9 % SOD CHLOR 600 MG/50 ML BAG IV SCH ×2 (14:05→22:02)
[2019-12-31] MEDS: IBUPROFEN 800 MG TABLET PO PRN (15:27)
[2019-12-31] MEDS: INSULIN LISPRO 100 UNITS/ML VIAL SC SCH (20:41)
[2020-01-01] MEDS: NICOTINE 21 MG PATC TD SCH (00:03)
[2020-01-01] MEDS: traMADol HCL 50 MG TABLET PO PRN ×2 (02:38→17:04)
[2020-01-01] MEDS: OXACILLIN SODIUM IV SCH ×2 (05:15)
[2020-01-01] MEDS: WATER IV SCH ×2 (05:15)
[2020-01-01] MEDS: DEXTROSE 5% IV SCH ×2 (05:15)
[2020-01-01] MEDS: CLINDAMYCIN IN 0.9 % SOD CHLOR 600 MG/50 ML BAG IV SCH ×2 (05:56→12:49)
[2020-01-01] MEDS: INSULIN LISPRO 100 UNITS/ML VIAL SC SCH ×4 (06:52→21:43)
[2020-01-01 06:58] LABS: Hematocrit 30.9 % (42.0-52.0); Hemoglobin 9.5 gm/dL (13.5-18.0); Mean Cell Volume 75.6 fl (78-100); Mean Corpuscular Hemoglobin 23.2 pg (27-31); Mean Corpuscular Hgb Conc 30.7 g/dl (32-36); Mean Platelet Volume 9.7 fl (8-11.3); Neutrophil # 15.6 K/mm3 (1.3-6.0); Neutrophil % 88.1 % (42-75.0); Platelet Count 336 K/mm3 (150-450); Red Blood Count 4.09 M/mm3 (4.7-6.0); Red Cell Distribution Width 16.5 % (11.5-14.0); White Blood Count 17.7 K/mm3 (4.0-10.5)
[2020-01-01 07:22] LABS: Albumin * 1.8 gm/dl (3.4-5.0); Anion Gap 12.8 mmol/L (6.8-13.8); BUN/Creatinine Ratio 27.4 (9.0-21.6); Bilirubin, Total 0.3 mg/dL (0.0-1.1); Ca. Corrected For Albumin 9.7 mg/dL (8.4-10.2); Calcium * 8.3 mg/dL (7.9-10.9); Carbon Dioxide 27.2 mmol/L (24-32.6); Total Protein 6.3 gm/dL (6.2-8.2)
[2020-01-01] MEDS: METOPROLOL TARTRATE 50 MG TABLET PO SCH ×2 (09:48→20:49)
[2020-01-01] MEDS ORDERED: ONDANSETRON HCL/PF 2 MG/ML VIAL IV ONE (13:44)
[2020-01-01] MEDS: ONDANSETRON HCL/PF 2 MG/ML VIAL IV PRN (19:46)
--- NOTE | 2020-01-01 20:11 | PN ---
Subjective - Date and Time Seen Date: 01/01/20 Time: 13:02 Subjective Narrative: Patient struggling today. Has been fairly nauseated and vomiting. Awaiting for cultures come back but presumptive Streptococcus bacteremia. Currently on clindamycin, oxacillin stopped per pharmacy request. Patient's vital signs been stable and is been afebrile. White count did increase today though, and overall patient just does not look like he feels well. Blood sugars have been elevated today Objective - Review of Systems Generalized/Overall Review: Reports: Weakness, Chills. Denies: Fever EENTM: Reports: No Symptoms Reported Respiratory: Reports: Shortness of Breath. Denies: Wheezing Cardiac: Denies: Chest Pain, Edema Abdominal: Reports: Nausea, Vomiting, Abdominal Pain Genitourinary Symptoms: Reports: No Symptoms Reported Neurological: Reports: No Symptoms Reported Skin: Reports: No Symptoms Reported - Vitals Vitals: Last Vital Signs Temp 36.7 C 01/01/20 17:00 Pulse 92 01/01/20 17:00 Resp 16 01/01/20 17:00 BP 138/67 01/01/20 17:00 Pulse Ox 96 01/01/20 17:00 - Abnormal Lab Findings Abnormal Lab Findings: Abnormal Lab Results 01/01/20 01/01/20 Range/Units 06:50 06:50 WBC 17.7 H (4.0-10.5) K/mm3 RBC 4.09 L (4.7-6.0) M/mm3 Hgb 9.5 L (13.5-18.0) gm/dL Hct 30.9 L (42.0-52.0) % MCV 75.6 L (78-100) fl MCH 23.2 L (27-31) pg MCHC 30.7 L (32-36) g/dl RDW 16.5 H (11.5-14.0) % Immature Gran % (Auto) 0.70 H (0.001-0.429) % Immature Gran # (Auto) 0.13 H (0.000-0.0310) K/mm3 Neutrophils % 88.1 H (42-75.0) % Lymphocytes % 5.6 L (20-51) % Neutrophils # 15.6 H (1.3-6.0) K/mm3 Lymphocytes # 0.99 L (1.5-3.5) k/mm3 Sodium 131 L (132-142) mmol/L Chloride 95 L (97-106) mmol/L BUN/Creatinine Ratio 27.4 H (9.0-21.6) Random Glucose 287 H D (70-110) mg/dL ALT 15 L (19-67) U/L Albumin 1.8 L (3.4-5.0) gm/dl - Exam Constitutional: Present: Alert, Oriented x3, Moderate distress Neck: Present: non-tender, supple Respiratory: Present: lungs clear, normal breath sounds Abdomen: Present: soft, nontender Skin Exam: Present: other - Significant blisters left lower extremity lateral side of stump, different stages of healing, some peeling and draining. Appearance: Present: disheveled, impaired insight Assessment/Plan Plan Narrative: patient is showing minimal signs of improvement after being on antibiotics 24 hours. Cultures finally came back speciate and enterococcus faecalis which is likely not responsive to clindamycin. Will start clindamycin at this time determine ampicillin 1 g every 6 hours. Continue Zofran for nausea. Continue Tylenol and tramadol for discomfort and pain. Lower extremity carrillo covered with mepilex. Blood sugars been poorly controlled, patient received 20 units of sliding scale insulin today. We will start him on 20 units long-acting insulin and continue moderate sliding scale. We will continue adjust insulin as needed. I understand patient probably will not be able to afford long-acting insulin 6 out of here but due to the seriousness of his infection I think it is appropriate to cover him and get this under control so that he may heal. Continue consistent carb diet. Vital signs are stable otherwise, will repeat labs in the morning. Nurses to call with questions or concerns. - Problems/Diagnosis (1) Bacteremia Problem: Acute (2) Infected blister of left lower extremity Problem: Acute (3) Hx of BKA Problem: Chronic Qualifiers: Laterality: left Qualified Code(s): Z89.512 - Acquired absence of left leg below knee (4) Anxiety and depression Problem: Chronic (5) Poorly controlled diabetes mellitus Problem: Chronic
[2020-01-01] MEDS: INSULIN GLARGINE,HUM.REC.ANLOG 100 UNITS/ML VIAL SC SCH ×2 (20:35)
[2020-01-01] MEDS ORDERED: INSULIN GLARGINE,HUM.REC.ANLOG 100 UNITS/ML VIAL SC SCH (21:00)
[2020-01-01] MEDS: AMPICILLIN SODIUM 1,000 MG in NORMAL SALINE 100 ML IV SCH (21:24)
[2020-01-02] MEDS: NICOTINE 21 MG PATC TD SCH ×2 (00:18→23:53)
[2020-01-02] MEDS: traMADol HCL 50 MG TABLET PO PRN ×2 (01:13→10:37)
[2020-01-02] MEDS: AMPICILLIN SODIUM 1,000 MG in NORMAL SALINE 100 ML IV SCH ×4 (03:57→20:09)
[2020-01-02 06:49] LABS: Hematocrit 30.4 % (42.0-52.0); Hemoglobin 9.4 gm/dL (13.5-18.0); Mean Cell Volume 75.8 fl (78-100); Mean Corpuscular Hemoglobin 23.4 pg (27-31); Mean Corpuscular Hgb Conc 30.9 g/dl (32-36); Mean Platelet Volume 8.9 fl (8-11.3); Neutrophil # 12.3 K/mm3 (1.3-6.0); Neutrophil % 83.4 % (42-75.0); Platelet Count 302 K/mm3 (150-450); Red Blood Count 4.01 M/mm3 (4.7-6.0); Red Cell Distribution Width 16.8 % (11.5-14.0); White Blood Count 14.8 K/mm3 (4.0-10.5)
[2020-01-02 07:08] LABS: Albumin * 1.9 gm/dl (3.4-5.0); Anion Gap 9.5 mmol/L (6.8-13.8); BUN/Creatinine Ratio 25.5 (9.0-21.6); Bilirubin, Total 0.4 mg/dL (0.0-1.1); Ca. Corrected For Albumin 9.9 mg/dL (8.4-10.2); Calcium * 8.5 mg/dL (7.9-10.9); Carbon Dioxide 29.8 mmol/L (24-32.6); Potassium 4.3 mmol/L (3.4-4.6); Total Protein 6.4 gm/dL (6.2-8.2)
[2020-01-02] MEDS: INSULIN LISPRO 100 UNITS/ML VIAL SC SCH ×4 (07:47→21:32)
[2020-01-02] MEDS: METOPROLOL TARTRATE 50 MG TABLET PO SCH ×2 (09:58→21:31)
[2020-01-02] MEDS: ONDANSETRON HCL/PF 2 MG/ML VIAL IV PRN ×2 (10:39→17:27)
[2020-01-02] MEDS: IBUPROFEN 800 MG TABLET PO PRN (13:25)
--- NOTE | 2020-01-02 18:59 | PN ---
Subjective - Date and Time Seen Date: 01/02/20 Time: 08:48 Subjective Narrative: Patient laying in bed. Patient had gotten upset and ripped out his IV overnight, has not received morning dose of antibiotics. Patient threatening to leave AMA. Otherwise vital signs been stable and his lab work is improving. White count down to 14. He is been afebrile. Blood cultures came back positive for Enterococcus faecalis, sensitive ampicillin which started last night. Objective - Review of Systems Generalized/Overall Review: Reports: Weakness. Denies: Chills, Fever EENTM: Reports: No Symptoms Reported Respiratory: Reports: Cough. Denies: Shortness of Breath Cardiac: Denies: Chest Pain, Edema Abdominal: Reports: Nausea. Denies: Vomiting Genitourinary Symptoms: Reports: No Symptoms Reported Skin: Reports: Other - Burn left lower stump, blistered - Vitals Vitals: Last Vital Signs Temp 36.0 C 01/02/20 18:27 Pulse 76 01/02/20 18:27 Resp 20 01/02/20 18:27 BP 153/82 H 01/02/20 18:27 Pulse Ox 97 01/02/20 18:27 - Abnormal Lab Findings Abnormal Lab Findings: Abnormal Lab Results 01/02/20 01/02/20 Range/Units 06:40 06:40 WBC 14.8 H (4.0-10.5) K/mm3 RBC 4.01 L (4.7-6.0) M/mm3 Hgb 9.4 L (13.5-18.0) gm/dL Hct 30.4 L (42.0-52.0) % MCV 75.8 L (78-100) fl MCH 23.4 L (27-31) pg MCHC 30.9 L (32-36) g/dl RDW 16.8 H (11.5-14.0) % Immature Gran % (Auto) 0.50 H (0.001-0.429) % Immature Gran # (Auto) 0.08 H (0.000-0.0310) K/mm3 Neutrophils % 83.4 H (42-75.0) % Lymphocytes % 8.0 L (20-51) % Neutrophils # 12.3 H (1.3-6.0) K/mm3 Lymphocytes # 1.18 L (1.5-3.5) k/mm3 Monocytes # 1.1 H (0.0-1.0) k/mm3 Sodium 131 L (132-142) mmol/L Chloride 96 L (97-106) mmol/L BUN 24 H (6-23) mg/dL BUN/Creatinine Ratio 25.5 H (9.0-21.6) Random Glucose 145 H D (70-110) mg/dL Albumin 1.9 L (3.4-5.0) gm/dl - Exam Constitutional: Present: Alert, Oriented x3. Absent: Cooperative - Frustrated, states he does not want a be here, does not care if he gets sick Eye contact: Present: refused to answer - Other than stating wants to go home Thoughts: Absent: normal thought pattern - Inappropriate thought pattern, normal mood /affect - Flat affect Assessment/Plan Plan Narrative: Patient wanted to leave A as he does not "care "with ampicillin. Advised patient to stay as he will likely end up back in the next couple of days much sicker than he is now. At the time of examination patient did not want answer questions and did not want to be examined. Patient change his mind later on in the afternoon that he would stay continue to receive biotics. IV restarted with antibiotics going again. Awaiting sensitivities. Continue ampicillin. Blood sugars much better controlled. Will wait to see how they are tomorrow as he is only been 1 day of long-acting insulin do not want adjusted too much at this time. Continue moderate scale insulin. Vital signs are stable and he is afebrile. Puente are covered. Continue consistent carbohydrate diet. We will start him on Lovenox for DVT prophylaxis. Nurse to call questions or concerns. - Problems/Diagnosis (1) Bacteremia Problem: Acute (2) Infected blister of left lower extremity Problem: Acute (3) Hx of BKA Problem: Chronic Qualifiers: Laterality: left Qualified Code(s): Z89.512 - Acquired absence of left leg below knee (4) Anxiety and depression Problem: Chronic (5) Poorly controlled diabetes mellitus Problem: Chronic
[2020-01-02] MEDS: ENOXAPARIN SODIUM 40 MG/0.4 ML SYRG SC SCH (20:08)
[2020-01-02] MEDS: INSULIN GLARGINE,HUM.REC.ANLOG 100 UNITS/ML VIAL SC SCH (21:31)
[2020-01-03] MEDS: AMPICILLIN SODIUM 1,000 MG in NORMAL SALINE 100 ML IV SCH ×4 (03:05→19:30)
[2020-01-03] MEDS: IBUPROFEN 800 MG TABLET PO PRN (05:52)
[2020-01-03] MEDS: INSULIN LISPRO 100 UNITS/ML VIAL SC SCH ×4 (07:24→20:11)
--- NOTE | 2020-01-03 08:13 | PN ---
Progess Note - Interim Date: 01/03/20 Time: 08:08 Narrative: 01/03/20 08:08 Called by Katy Fontanez RN about patient and notified patient is slurring, left facial droop and waving his arm and unable to feed himself symptoms noticed Concern for CVA. VSS [facility] 13 Physical Exam concerning for lower left facial droop, slurring of speech, left hemiplagia. Alert and orient to person, not time and place. PE completed at 08:15 am Stat Orders as follows: CT head without Contrast EKG Cardiac Panel Echo and Carotid Doppler pending Last Echo in 2015 consistent with diastolic dysfunction with preserved EF Plan: 1. Acute CVA - NIHHS = 13 - CT head w/o contrast ruled out acute bleed - Coughed on bedside swallow test, concern for aspiration, patient made NPO - If leukocytosis does not improve repeat CXR to rule out aspiration - Neuro Checks q2h along with Vitals signs - Doppler of Carotids pending - Labetalol 5 mg IV X 2. Allow permissive HTN - Aspirin 300 PO RC - Resume Lopressor 50 mg PO BID this evening 2. Ischemic Cardiomyopathy - EKG concerning for acute posterior infarction - ST depression in inferior leads with reciprocal ST depression in anterior leads - with critical troponin of >2.1 - Aspirin 300 PO RC - Statin high dose 40 mg - Lopressor 10 mg IV - Lisinopril 20 mg PO QD - Echo pending - Repeat Blood cultures to rule out vegetations Fluid Electorlytes, Nutrition (FEN): NPO DVT ppx: Lovenox 40 mg SC CODE STATUS: DNR/DNI Disposition: - Will trend troponins x 3 Q3H - Repeat EKG with each troponin - Allow permissive HTN, blood pressure meds on hold - PT/OT ordered - Echo and Carotid pending - Neuro checks Q3H - Prognosis is poor, will not follow up with MRI and will not transfer out for higher level of care Discussed Case with PCP with Dr. Rossi. Agreeable with plan. 01/03/20 08:13 01/03/20 08:38 01/03/20 08:40 01/03/20 08:42 01/03/20 08:49 01/03/20 09:10 01/03/20 09:14
[2020-01-03] MEDS ORDERED: ASPIRIN 81 MG TAB.CHEW PO ONE ×2 (08:16→09:04)
[2020-01-03] MEDS ORDERED: NITROGLYCERIN 0.4 MG/TAB BTL SL PRN (08:30)
[2020-01-03] MEDS ORDERED: METOPROLOL TARTRATE 100 MG TABLET PO SCH (08:30)
[2020-01-03] MEDS ORDERED: ASPIRIN 300 MG SUPP.RECT RC ONE (08:34)
[2020-01-03 08:37] LABS: CKMB 2.6 ng/mL (0.0-9.0)
[2020-01-03 08:39] LABS: Troponin I 2.149 ng/mL (0.00-0.10)
[2020-01-03] MEDS ORDERED: METOPROLOL TARTRATE 1 MG/ML AMPUL IV ONE ×2 (08:47→09:00)
[2020-01-03] MEDS ORDERED: ROSUVASTATIN CALCIUM 20 MG TABLET PO SCH ×2 (09:00→09:15)
[2020-01-03] MEDS: MORPHINE SULFATE 2 MG/ML DISP.SYRIN IV PRN ×2 (09:13→09:15)
[2020-01-03] MEDS ORDERED: LISINOPRIL 20 MG TABLET PO SCH (09:15)
[2020-01-03] MEDS ORDERED: MORPHINE SULFATE 4 MG/ML SYRG IV ONE (09:49)
[2020-01-03 11:37] LABS: CKMB 2.1 ng/mL (0.0-9.0)
[2020-01-03 11:48] LABS: Troponin I 1.847 ng/mL (0.00-0.10)
[2020-01-03 14:22] LABS: CKMB 2.3 ng/mL (0.0-9.0)
[2020-01-03 14:26] LABS: Troponin I 1.769 ng/mL (0.00-0.10)
[2020-01-03 17:50] LABS: CKMB 2.1 ng/mL (0.0-9.0)
[2020-01-03 17:52] LABS: Troponin I 1.662 ng/mL (0.00-0.10)
[2020-01-03] MEDS: traMADol HCL 50 MG TABLET PO PRN (18:37)
[2020-01-03] MEDS: ENOXAPARIN SODIUM 40 MG/0.4 ML SYRG SC SCH (19:28)
[2020-01-03] MEDS: INSULIN GLARGINE,HUM.REC.ANLOG 100 UNITS/ML VIAL SC SCH (20:13)
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
[2020-01-04] MEDS: AMPICILLIN SODIUM 1,000 MG in NORMAL SALINE 100 ML IV SCH ×3 (02:22→23:19)
[2020-01-04] MEDS: INSULIN LISPRO 100 UNITS/ML VIAL SC SCH ×2 (07:22→12:30)
[2020-01-04] MEDS: MORPHINE SULFATE 2 MG/ML DISP.SYRIN IV PRN ×6 (09:05→22:22)
[2020-01-04] MEDS: DIAZEPAM 5 MG/ML SYRG IV PRN ×3 (09:40→22:21)
--- NOTE | 2020-01-04 21:29 | PN ---
Subjective - Date and Time Seen Date: 01/04/20 Time: 09:18 Subjective Narrative: Patient began deteriorating overnight and this morning when he was seen patient was fairly nonverbal, responsive only to sternal rub initially. Unable or unwilling to open his eyes. Complete flaccid left upper and lower extremity. Left facial droop. He has been discussed with the son the day before to start him on comfort measures only and order hospice consult but patient's son had wanted to think about it a little more overnight. Patient son was notified this morning and agreed with comfort measures. Objective Objective Narrative: Review of systems unable to be obtained due to patient's deterioration and being nonverbal. Patient did appear to be slightly distressed and agitated when examined. - Vitals Vitals: Last Vital Signs Temp 38.4 C H 01/04/20 06:00 Pulse 76 01/04/20 07:59 Resp 20 01/04/20 06:00 BP 156/78 H 01/04/20 06:00 Pulse Ox 97 01/04/20 06:00 - Exam Constitutional: Absent: Alert, Oriented x3 Respiratory: Present: lungs clear, normal breath sounds Cardiovascular/Chest: Present: regular rate, rhythm, no murmur Neurologic: Present: facial droop, motor weakness, sensory deficit, other - Aphasic, currently responsive only to painful stimuli Assessment/Plan Plan Narrative: Patient CVA appears to have progressed, patient is mostly unresponsive aside from sternal rub. Patient does open his eyes a little bit when addressing him. Currently patient is mostly non-verbal. Called and discussed his case with his son who agrees with comfort measures only at this time. Will stop nonessential medications, though will continue antibiotics due to ongoing infection. Diazepam and morphine ordered for comfort measures. Atropine drops to be used as needed for excessive secretions. We will continue to monitor patient's status. Nurse will call questions or concerns. - Problems/Diagnosis (1) CVA (cerebral vascular accident) Problem: Acute (2) Bacteremia Problem: Acute (3) Infected blister of left lower extremity Problem: Acute (4) Hx of BKA Problem: Chronic Qualifiers: Laterality: left Qualified Code(s): Z89.512 - Acquired absence of left leg below knee (5) Anxiety and depression Problem: Chronic (6) Poorly controlled diabetes mellitus Problem: Chronic (7) Oral-neglect of left side Problem: Acute (8) Dysphasia Problem: Acute (9) NSTEMI (non-ST elevated myocardial infarction) Problem: Acute
[2020-01-05] MEDS: NICOTINE 21 MG PATC TD SCH ×2 (00:22→23:17)
[2020-01-05] MEDS: MORPHINE SULFATE 2 MG/ML DISP.SYRIN IV PRN ×10 (01:09→23:31)
[2020-01-05] MEDS: AMPICILLIN SODIUM 1,000 MG in NORMAL SALINE 100 ML IV SCH ×4 (02:36→21:36)
[2020-01-05] MEDS: ATROPINE SULFATE 50 DROP BTL SL PRN ×7 (04:17→23:27)
[2020-01-05] MEDS: DIAZEPAM 5 MG/ML SYRG IV PRN ×2 (04:21→15:39)
--- NOTE | 2020-01-05 22:53 | PN ---
Subjective - Date and Time Seen Date: 01/05/20 Time: 22:42 Objective Objective Narrative: Patient with comfort measures only at this time. Nonverbal and minimally responses to stimuli. Abx still ordered to tx infection but other meds stopped aside from comfort meds. Patient continues to have worsening neurological function as noted by posturing now on his left side as well as being unresponsive aside from painful stiluli. He would not open his eyes for me - Review of Systems Generalized/Overall Review: Reports: No Symptoms Reported - unable to obtain due to neurological dysfunction - Vitals Vitals: Last Vital Signs Temp 38.4 C H 01/04/20 06:00 Pulse 76 01/04/20 07:59 Resp 20 01/04/20 06:00 BP 156/78 H 01/04/20 06:00 Pulse Ox 97 01/04/20 06:00 - Exam Exam Narrative: Physical exam not performed due to patient being comfort measures only as he is actively dying. He appears to be comfortable Neurologic: Present: other - posturing left UE Assessment/Plan Plan Narrative: Continue comfort measures only aside from ampicillin. Will continue to tx active infection for the time being. Morphine, Valium, atropine ordered. Nurse to call with any questions or concerns - Problems/Diagnosis (1) CVA (cerebral vascular accident) Problem: Acute (2) Bacteremia Problem: Acute (3) Infected blister of left lower extremity Problem: Acute (4) Hx of BKA Problem: Chronic Qualifiers: Laterality: left Qualified Code(s): Z89.512 - Acquired absence of left leg below knee (5) Anxiety and depression Problem: Chronic (6) Poorly controlled diabetes mellitus Problem: Chronic (7) Oral-neglect of left side Problem: Acute (8) Dysphasia Problem: Acute (9) NSTEMI (non-ST elevated myocardial infarction) Problem: Acute
[2020-01-06] MEDS: ATROPINE SULFATE 50 DROP BTL SL PRN ×7 (01:57→21:19)
[2020-01-06] MEDS: MORPHINE SULFATE 2 MG/ML DISP.SYRIN IV PRN ×4 (02:23→09:03)
[2020-01-06] MEDS: AMPICILLIN SODIUM 1,000 MG in NORMAL SALINE 100 ML IV SCH ×4 (03:19→21:13)
[2020-01-06] MEDS: DIAZEPAM 5 MG/ML SYRG IV PRN (09:04)
[2020-01-06] MEDS: MORPHINE SULFATE 10 MG/ML SYRG IV PRN ×5 (10:11→21:08)
--- NOTE | 2020-01-06 21:26 | PN ---
Subjective - Date and Time Seen Date: 01/06/20 Time: 21:11 Subjective Narrative: Patient is sedated and comfortable, no acute events overnight. Currently comfort measures only at this time. Nurse told me that he was slightly uncomfortable overnight and is wondering if his medications can be adjusted. Objective Objective Narrative: No review of systems obtained - Vitals Vitals: Last Vital Signs Temp 38.4 C H 01/04/20 06:00 Pulse 76 01/04/20 07:59 Resp 20 01/04/20 06:00 BP 156/78 H 01/04/20 06:00 Pulse Ox 97 01/04/20 06:00 - Exam Constitutional: Present: Looks Older than stated age. Absent: Alert Neurologic: Present: other - Left upper extremity posturing Responsive only to sternal rub [facility] Physician Documentation - Urinary Catheter Management Urethral ([place]) Date of Insertion: 01/06/20 Time of Insertion: 14:52 Assessment/Plan Plan Narrative: No changes to current treatment plan, continue comfort measures only at this time. Will stop antibiotics today for his bacteremia. We will increase his morphine from 2 mg every 2 hours to 5 mg every 2 hours as needed. Continue Valium as needed. atropine as needed for secretions. Patient unable to be placed, patient will spend his time here until he passes. Will adjust his medications as needed to keep him comfortable. Nurse will call questions or concerns. - Problems/Diagnosis (1) CVA (cerebral vascular accident) Problem: Acute (2) Bacteremia Problem: Acute (3) Infected blister of left lower extremity Problem: Acute (4) Hx of BKA Problem: Chronic Qualifiers: Laterality: left Qualified Code(s): Z89.512 - Acquired absence of left leg below knee (5) Anxiety and depression Problem: Chronic (6) Poorly controlled diabetes mellitus Problem: Chronic (7) Oral-neglect of left side Problem: Acute (8) Dysphasia Problem: Acute (9) NSTEMI (non-ST elevated myocardial infarction) Problem: Acute
[2020-01-07 00:31] VITALS: BP 0/0
--- NOTE | 2020-01-10 10:11 | DS ---
Discharge Summary - Provider Primary Care Provider: Ronnell Rossi Admitting Clinician: Ronnell Rossi - Date and Time Date of : 01/06/20 Time of : 22:20 - Diagnosis/Cause of (1) CVA (cerebral vascular accident) Problems: Acute (2) Bacteremia Problems: Acute (3) Infected blister of left lower extremity Problems: Acute (4) Hx of BKA Problems: Chronic (5) Anxiety and depression Problems: Chronic (6) Poorly controlled diabetes mellitus Problems: Chronic (7) Oral-neglect of left side Problems: Acute (8) Dysphasia Problems: Acute (9) NSTEMI (non-ST elevated myocardial infarction) Problems: Acute - Summary Details (narrative): Layla presented to the hospital with cough, shortness of breath, fatigue. An elevated white count with a left shift. Initially presumed to have upper respiratory infection but chest x-ray and symptoms consistent with that. Blood cultures were drawn and came back gram-positive for gram positive cocci in chains. He was started on ampicillin. While being treated for this he developed an acute CVA as well as an NSTEMI. Patient significantly deteriorated following these 2 events and it was determined by family as well as previous discussions with the patient that he would be made comfort measures only at that time. Patient was kept comfortable and a couple days after his stroke. Procedures Performed: none - Additional Data Confirmation of as documented by pronouncing clinician: no pulse Family: contacted Was code activated: No Autopsy requested: No [employer] notified: Yes [employer] notified: No Advance Directives: No Hospice patient: No
== END 2020-01-06 22:20 | disposition expired ==
LOC: MS 18:25 → ER 18:25 → MS 21:24
PROVIDERS: ADMIT Family Medicine; ATTEND Family Medicine
DX: Z89.511 Acquired absence of right leg below knee; Z89.512 Acquired absence of left leg below knee; R13.10 Dysphagia, unspecified; R29.713 NIHSS score 13; F17.210 Nicotine dependence, cigarettes, uncomplicated; I21.4 Non-ST elevation (NSTEMI) myocardial infarction; I63.9 Cerebral infarction, unspecified; E11.65 Type 2 diabetes mellitus with hyperglycemia; G81.94 Hemiplegia, unspecified affecting left nondominant side; Z79.4 Long term (current) use of insulin; S09.90XA Unspecified injury of head, initial encounter; T31.0 Burns involving less than 10% of body surface; R78.81 Bacteremia; T24.212D Burn of second degree of left thigh, subsequent encounter
CPT/HCPCS: 36415; 70450; 71020; 71046; 80053; 80307; 81001; 82550; 82553; 83519; 83880; 84484; 85025; 87040; 87077; 87186; 93005; 96374; 99284; 99285; J2405